=== PATIENT | female | born 1935 | race African-American/Black ===

== ENCOUNTER 2017-05-17 16:28 | Emergency (ER) | payer OTHER ==
[2017-05-17 16:35] VITALS: BMI 28.3
--- NOTE | 2017-05-17 20:02 | PDOC ---
History of Present Illness - General Chief Complaint: Lightheaded Stated Complaint: WEAKNESS Time Seen by Provider: 05/17/17 19:28 History Source: Patient Exam Limitations: No Limitations - History of Present Illness Initial Comments: 05/17/17 20:02 CC: 3 isolated episodes of Headache + Lightheadedness Patient is a 81 y.o. female with a PMH of HTN and HLD who presents to our facility today c/o 3 isolated epsiodes of feeling lightheaded with pressure behind her eyes and a throbbing pain over her forehead and crown of her head. Patient states the first episode was 2 weeks previous for which she took an Advil with some relief. Patient states the second two episodes occurred yesterday and today respectively. All three episodes happened in the morning soon after awakening and patient notes some nausea, however no vomiting, diaphoresis, chest pain, shortness of breath. Past History - Past Medical History Allergies/Adverse Reactions: Allergies Allergy/AdvReac Type Severity Reaction Status Date / Time Penicillins Allergy Mild Hives Verified 05/17/17 16:35 Home Medications: Ambulatory Orders Amlodipine Besylate 5 mg PO DAILY 05/17/17 Rosuvastatin Calcium 10 mg PO HS 05/17/17 Anemia: No Asthma: No Cancer: No Cardiac Disorders: No CVA: No COPD: No CHF: No Dementia: No Diabetes: No GI Disorders: Yes (TUBULAR ADENOMA) Disorders: No HTN: Yes Hypercholesterolemia: No Liver Disease: No Seizures: No Thyroid Disease: No - Surgical History Abdominal Surgery: Yes Appendectomy: No Cardiac Surgery: No Cholecystectomy: No Lung Surgery: No Neurologic Surgery: No Orthopedic Surgery: Yes (RIGHT KNEE REPLACEMENT) - Family Disease History Family Disease History: Heart Disease: Mother - Immunization History Immunization Up to Date: Yes (flu 2 wks ago) - Psycho/Social/Smoking Cessation Hx Anxiety: No Suicidal Ideation: No Smoking Status: No Smoking History: Never smoked Number of Cigarettes Smoked Daily: 0 Information on smoking cessation initiated: No Hx Alcohol Use: No Drug/Substance Use Hx: No Substance Use Type: None Hx Substance Use Treatment: No Review of Systems - Review of Systems Constitutional: No: Chills, Fever, Malaise, Unexplained wgt Loss HEENTM: No: Blurred Vision, Double Vision Respiratory: No: Cough Cardiac (ROS): Yes: Lightheadedness. No: Chest Pain, Palpitations, Syncope ABD/GI: No: Constipated, Diarrhea : No: Burning, Dysuria All Other Systems: Reviewed and Negative *Physical Exam - Vital Signs Last Vital Signs Temp Pulse Resp BP Pulse Ox 98.5 F 77 19 156/73 99 05/17/17 16:34 05/17/17 16:34 05/17/17 16:34 05/17/17 16:34 05/17/17 16:34 - Physical Exam General Appearance: Yes: Nourished, Appropriately Dressed HEENT: positive: EOMI, GIBRAN Neck: positive: Trachea midline, Supple Respiratory/Chest: positive: Lungs Clear, Normal Breath Sounds Cardiovascular: positive: Regular Rate, S1, S2 Musculoskeletal: positive: Normal Inspection Extremity: positive: Normal Capillary Refill, Normal Inspection Neurologic: 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 female with a PMH of HTN and HLD who presents with 3 episodes of headache and lightheadedness. Initial DDx is Brain tumor vs. Electrolyte imbalance vs. Cardiac Arrhythmia PLAN 1. EKG 2. CT Head 3. CMP, CBC 05/17/17 20:32 EKG shows NSR (HR 66 bpm) with deep QRS in V1 and high QRS in aVL suggesting LV Hypertrophy --> possible cardiac etiology 05/17/17 21:50 CT head pending at time of signout to Dr. Deepa Ray (attending) *DC/Admit/Observation/Transfer Diagnosis at time of Disposition: Lightheadedness
[2017-05-17 21:33] LABS: MCH 28.1 pg (25.7-33.7); MEAN CELL VOLUME 85.1 fl (80-96); MEAN PLT VOLUME 7.9 fl (7.5-11.1); PLATELET COUNT 250 K/MM3 (134-434); RDW 14.2 % (11.6-15.6); WHITE BLOOD COUNT 10.4 K/mm3 (4.0-10.0)
[2017-05-17 22:51] VITALS: BP 146/66; PULSE 75; TEMP 97.7
[2017-05-17 22:54] LABS: ALK PHOS 96 U/L (45-117); ANION GAP 8 (8-16); BILIRUBIN,TOTAL 0.5 mg/dL (0.2-1.0); CALCIUM 9.8 mg/dL (8.5-10.1); CO2 27 mmol/L (21-32); CREATININE 0.9 mg/dL (0.55-1.02); GLUCOSE,RANDOM 102 mg/dL (74-106); SGOT/AST 14 U/L (15-37); SGPT/ALT 22 U/L (12-78); TOT PROT 7.2 g/dl (6.4-8.2)
--- NOTE | 2017-05-17 23:44 | PDOC ---
Attending Attestation - Resident Resident Name: ParulIsabelle - ED Attending Attestation I have performed the following: I have examined & evaluated the patient, The case was reviewed & discussed with the resident, I agree w/resident's findings & plan, Exceptions are as noted - HPI HPI: 05/17/17 23:44 81-year-old female who's had vertigo intermittently over the past 2-1/2 weeks - Physicial Exam PE: 05/17/17 23:44 Well-nourished well-developed 81-year-old female in no acute distress HEENT head normocephalic/atraumatic, pupils equal, reactive to light and accommodation Neck no significant bruits Lungs are clear to auscultation CVS regular rate and rhythm. No gallops or rubs Abdomen is soft Extremities full range of motion, no deformities Neuro patient is alert and oriented 3, ambulatory, motor strength 5 out of 5 bilaterally, no ataxia at this time - Medical Decision Making 05/17/17 23:46 CAT scan of the head is negative for any acute intracranial pathology, limits her reviewed and unremarkable. Patient referred to ear, nose and throat for further evaluation
--- NOTE | 2017-05-17 23:48 | PDOC ---
*Physical Exam - Vital Signs Last Vital Signs Temp Pulse Resp BP Pulse Ox 97.7 F 75 18 146/66 99 05/17/17 22:50 05/17/17 22:50 05/17/17 22:50 05/17/17 22:50 05/17/17 22:50 ED Treatment Course - LABORATORY CBC & Chemistry Diagram: 05/17/17 21:26 05/17/17 21:26 - ADDITIONAL ORDERS Additional order review: Laboratory Results 05/17/17 05/17/17 21:26 21:03 Sodium 139 Cancelled Potassium 4.3 Cancelled Chloride 104 Cancelled Carbon Dioxide 27 Cancelled Anion Gap 8 Cancelled BUN 19 H Cancelled Creatinine 0.9 D Cancelled Creat Clearance w eGFR > 60 Cancelled Random Glucose 102 Cancelled Calcium 9.8 Cancelled Total Bilirubin 0.5 D Cancelled AST 14 L D Cancelled ALT 22 D Cancelled Alkaline Phosphatase 96 Cancelled Total Protein 7.2 Cancelled Albumin 4.0 Cancelled 05/17/17 05/17/17 21:26 21:03 RBC 4.38 Cancelled MCV 85.1 Cancelled MCHC 33.0 Cancelled RDW 14.2 Cancelled MPV 7.9 Cancelled Neutrophils % Cancelled Lymphocytes % Cancelled Monocytes % Cancelled Eosinophils % Cancelled Basophils % Cancelled *DC/Admit/Observation/Transfer Diagnosis at time of Disposition: Lightheadedness, Vertigo - Discharge Dispostion Disposition: HOME Condition at time of disposition: Stable - Referrals Referrals: Milo Key [Primary Care Provider] - Nba Carney MD [Staff Physician] - - Patient Instructions Printed Discharge Instructions: DI for Vertigo Additional Instructions: please follow up with your physician supervisor printing and stamping your medication at [facility] - Post Discharge Activity
--- NOTE | 2017-05-18 14:55 | EKG ---
Test Reason : Blood Pressure : / mmHG Vent. Rate : 066 BPM Atrial Rate : 066 BPM P-R Int : 156 ms QRS Dur : 116 ms QT Int : 438 ms P-R-T Axes : 062 -14 021 degrees QTc Int : 459 ms NORMAL SINUS RHYTHM POSSIBLE LEFT ATRIAL ENLARGEMENT LEFT VENTRICULAR HYPERTROPHY WITH QRS WIDENING INFERIOR INFARCT , AGE UNDETERMINED ABNORMAL ECG WHEN COMPARED WITH ECG OF 01-JUN-2016 08:49, QRS DURATION HAS INCREASED Confirmed by MARIAM PEDERSON, WHITNEY ([id number]) on 05/18/2017 2:54:54 PM Referred By: Confirmed By:WHITNEY BECERRA MD
== END 2017-05-17 23:54 | disposition home or self-care (01) ==
LOC: JER 16:28
DX: R42 Dizziness and giddiness (principal); I10 Essential (primary) hypertension
CPT/HCPCS: 36415; 70450-TC; 80053; 85027; 93005; 93010; 99283-25

== ENCOUNTER 2017-11-06 15:49 | Emergency (ER) | payer OTHER ==
[2017-11-06 16:09] VITALS: TEMP 98.7; BMI 26.6
--- NOTE | 2017-11-06 16:20 | PDOC ---
Attending Attestation - Medical Decision Making 11/07/17 02:09 CTA HEAD AND NECK Impressions reported by Dr.Ken Mas at 00:18: No vascular abnormalities in the brain. Suprasellar mass demonstrates no mass effect on either internal carotid artery. Enhanced MRI is suggested for further evaluation of the mass. Bilateral internal carotid artery calcified plaque without a hemodynamically significant stenosis. <Kelvin Medina - Last Filed: 11/07/17 02:09> - Resident Resident Name: Diane Butt - ED Attending Attestation I have performed the following: I have examined & evaluated the patient, The case was reviewed & discussed with the resident, I agree w/resident's findings & plan, Exceptions are as noted - HPI HPI: 11/06/17 17:39 82 yo female had a mechanical fall at home and yelled to her who helped her back into the chair. 11/06/17 17:41 - Physicial Exam PE: 11/07/17 22:02 wnwd alert 82 yo female in no acute distress head no scalp laceration neck no cervcial vertebral tenderness lungs cta b/l cvs [id number] abd soft,nontender ext no edema musculoskeletal rt shoulder pain upon raising over head but no limited range of mvmt or deformity neuro axox3, ambulatory - Medical Decision Making 11/07/17 22:58 CAT scan of the head without contrast did not show any acute bleed or skull fracture. 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 I did call the patient's doctor Dr. Olegario Jensen today and the patient did see her primary care physician for follow-up today. <Deepa Ray - Last Filed: 11/07/17 23:00>
--- NOTE | 2017-11-06 17:09 | PDOC ---
History of Present Illness - General Chief Complaint: Injury Stated Complaint: FALL Time Seen by Provider: 11/06/17 16:15 History Source: Patient Exam Limitations: No Limitations - History of Present Illness Initial Comments: 11/06/17 17:05 82 y/o F with PMH HTN, HLD, on aspirin 81mg qd, who presents to the ED s/p mechanical fall this afternoon. As per pt, she was getting up from her dining room table when she tripped on the chair, falling to the ground. During the fall , pt suffered head trauma, as well as injury to her R shoulder. Pt currently endorses occipital JARAMILLO. Pt denied LOC, seizure activity, palpitations or lightheadedness prior to the event. Fall was unwitnessed. After her fall, pt yelled out, and her subsequently helped her up and brought her to the ED. Otherwise, pt denies fever, chills, SOB, chest pain, or any changes in urinary or bowel function. PMH: HTN, HLD PsxH: b/l knee replacement- R 2007, L 1993. 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 denies cigarette, alcohol, or recreational drug use Past History - Past Medical History Allergies/Adverse Reactions: Allergies Allergy/AdvReac Type Severity Reaction Status Date / Time Penicillins Allergy Mild Hives Verified 11/06/17 16:09 Home Medications: Ambulatory Orders Unobtainable [Unobtainable] 11/06/17 Anemia: No Asthma: No Cancer: No Cardiac Disorders: No CVA: No COPD: No CHF: No Dementia: No Diabetes: No GI Disorders: Yes (TUBULAR ADENOMA) Disorders: No HTN: Yes Hypercholesterolemia: No Liver Disease: No Seizures: No Thyroid Disease: No - Surgical History Abdominal Surgery: Yes Appendectomy: No Cardiac Surgery: No Cholecystectomy: No Lung Surgery: No Neurologic Surgery: No Orthopedic Surgery: Yes (RIGHT KNEE REPLACEMENT) - Family Disease History Family Disease History: Heart Disease: Mother - Immunization History Immunization Up to Date: Yes (flu 2 wks ago) - Suicide/Smoking/Psychosocial Hx Smoking Status: No Smoking History: Never smoked Number of Cigarettes Smoked Daily: 0 Hx Alcohol Use: No Drug/Substance Use Hx: No Substance Use Type: None Hx Substance Use Treatment: No Review of Systems - Review of Systems Able to Perform ROS?: Yes Musculoskeletal: Yes: Joint Pain (R shoulder pain) Neurological: Yes: Headache *Physical Exam - Vital Signs Last Vital Signs Temp Pulse Resp BP Pulse Ox 98.7 F 86 18 180/81 99 11/06/17 16:06 11/06/17 16:06 11/06/17 16:06 11/06/17 16:06 11/06/17 16:06 - Physical Exam General Appearance: Yes: Nourished, Other (in no acute distress) HEENT: positive: EOMI, GIBRAN Neck: positive: Supple Respiratory/Chest: positive: Lungs Clear, Normal Breath Sounds Cardiovascular: positive: Regular Rhythm, Regular Rate, S1, S2 Vascular Pulses: Dorsalis-Pedis (R): 2+, Doralis-Pedis (L): 2+ Gastrointestinal/Abdominal: positive: Normal Bowel Sounds, Soft Musculoskeletal: positive: Decreased Range of Motion (+R shoulder ) Integumentary: positive: Normal Color, Warm Neurologic: 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 Will get CT head non con to r/o bleed, cervical spine CT w/o con, R shoulder x-ray r/o fx, EKG to r/o any arrythmia and reevaluate. afebrile, BP most likely 2/2 pain. will continue to monitor 11/06/17 18:55 EKG vent rate 78, NJ 146ms, Qtc 474ms. With RBBB, past inferior infarct 11/06/17 21:24 Pt with mass on CT head - will need CT head with contrast. Will first check BUN/ Cr, needs IV line for contrast 11/06/17 23:30 BUN/Cr WNL pt for brain CTA, neck CTA
[2017-11-06] MEDS ORDERED: SODIUM CHLORIDE 1,000 ML IV SCH (21:15)
[2017-11-06 21:57] LABS: BASO % 1.2 % (0-2.0); EOS % 3.1 % (0-4.5); HEMATOCRIT 39.1 % (32.4-45.2); HEMOGLOBIN 12.7 GM/dL (10.7-15.3); LYMPH % 19.2 % (8-40); MCH 27.3 pg (25.7-33.7); MCHC 32.5 g/dl (32.0-36.0); MEAN CELL VOLUME 84.1 fl (80-96); MEAN PLT VOLUME 8.1 fl (7.5-11.1); MONO % 8.1 % (3.8-10.2); NEUT % 68.4 % (42.8-82.8); PLATELET COUNT 241 K/MM3 (134-434); RBC 4.65 M/mm3 (3.60-5.2); RDW 14.6 % (11.6-15.6); WHITE BLOOD COUNT 12.5 K/mm3 (4.0-10.0)
[2017-11-06 22:23] LABS: ALBUMIN 4.1 g/dl (3.4-5.0); ALK PHOS 104 U/L (45-117); ANION GAP 11 (8-16); BILIRUBIN,TOTAL 0.6 mg/dL (0.2-1.0); BLOOD UREA NITROGEN 17 mg/dL (7-18); CALCIUM 9.6 mg/dL (8.5-10.1); CHLORIDE 103 mmol/L (98-107); CO2 26 mmol/L (21-32); CREATININE 0.8 mg/dL (0.55-1.02); GLUCOSE,RANDOM 107 mg/dL (74-106); POTASSIUM 4.7 mmol/L (3.5-5.1); SGOT/AST 24 U/L (15-37); SGPT/ALT 30 U/L (12-78); SODIUM 140 mmol/L (136-145)
--- NOTE | 2017-11-07 02:30 | PDOC ---
*Physical Exam - Vital Signs Last Vital Signs Temp Pulse Resp BP Pulse Ox 98.7 F 86 18 180/81 99 11/06/17 16:06 11/06/17 16:06 11/06/17 16:06 11/06/17 16:06 11/06/17 16:06 ED Treatment Course - LABORATORY CBC & Chemistry Diagram: 11/06/17 21:15 11/06/17 21:15 - ADDITIONAL ORDERS Additional order review: Laboratory Results 11/06/17 21:15 Sodium 140 Potassium 4.7 Chloride 103 Carbon Dioxide 26 Anion Gap 11 BUN 17 Creatinine 0.8 Creat Clearance w eGFR > 60 Random Glucose 107 H Calcium 9.6 Total Bilirubin 0.6 AST 24 ALT 30 Alkaline Phosphatase 104 Total Protein 8.0 Albumin 4.1 11/06/17 21:15 RBC 4.65 MCV 84.1 MCHC 32.5 RDW 14.6 MPV 8.1 Neutrophils % 68.4 Lymphocytes % 19.2 D Monocytes % 8.1 Eosinophils % 3.1 D Basophils % 1.2 - RADIOLOGY Radiology Studies Ordered: Category Date Time Status BRAIN CTA [CT] Stat CT Scan 11/06/17 23:[address] W/O CONTR [CT] Stat CT Scan 11/06/17 17:39 Taken NECK CTA [CT] Stat CT Scan 11/06/17 22:45 Taken *DC/Admit/Observation/Transfer Diagnosis at time of Disposition: Suprasellar mass Closed head injury Qualifiers: Encounter type: initial encounter Qualified Code(s): S09.90XA - Unspecified injury of head, initial encounter Shoulder pain Qualifiers: Chronicity: acute Laterality: right Qualified Code(s): M25.511 - Pain in right shoulder - Discharge Dispostion Disposition: HOME Condition at time of disposition: Stable - Referrals - Patient Instructions Printed Discharge Instructions: DI for Shoulder Pain, DI for Closed Head Injury Additional Instructions: Your CT SCAN of the head revealed a suprasellar mass and this needs to be followed and you need to get an MRI Please see Dr Jensen this week - Post Discharge Activity
[2017-11-07 02:53] VITALS: BP 145/76; PULSE 71
--- NOTE | 2017-11-07 17:05 | EKG ---
Test Reason : Blood Pressure : / mmHG Vent. Rate : 078 BPM Atrial Rate : 078 BPM P-R Int : 146 ms QRS Dur : 116 ms QT Int : 416 ms P-R-T Axes : 046 -06 024 degrees QTc Int : 474 ms NORMAL SINUS RHYTHM LEFT VENTRICULAR HYPERTROPHY WITH QRS WIDENING INFERIOR INFARCT (CITED ON OR BEFORE 17-MAY-2017) ABNORMAL ECG WHEN COMPARED WITH ECG OF 17-MAY-2017 20:21, NO SIGNIFICANT CHANGE WAS FOUND Confirmed by KATHERNY DE LA GARZA MD ([id number]) on 11/07/2017 5:04:59 PM Referred By: Confirmed By:KATHERYN DE LA GARZA MD
== END 2017-11-07 02:49 | disposition home or self-care (01) ==
LOC: JER 15:49
PROC: 3E0337Z Introduction of Electrolytic and Water Balance Substance into Peripheral Vein, Percutaneous Approach (ICD-10-PCS; principal; 2017-11-06)
DX: S09.8XXA Other specified injuries of head, initial encounter (principal); M25.511 Pain in right shoulder; I10 Essential (primary) hypertension; W07.XXXA Fall from chair, initial encounter; Y93.89 Activity, other specified; Y92.038 Other place in apartment as the place of occurrence of the external cause; Y99.8 Other external cause status
CPT/HCPCS: 36415; 70450-TC; 70496-TC; 70498-TC; 72125-TC; 73030-TC-RT-FY; 80053; 85025; 93005; 93010; 96360; 96361; 99283-25

== ENCOUNTER 2018-07-01 20:06 | Emergency (ER) | payer OTHER ==
[2018-07-01 20:17] VITALS: BP 152/68; PULSE 93; TEMP 99.4; BMI 26.6
--- NOTE | 2018-07-01 20:36 | PDOC ---
History of Present Illness - General Chief Complaint: Cold Symptoms Stated Complaint: COLD SYMPTOMS Time Seen by Provider: 07/01/18 20:22 History Source: Patient - History of Present Illness Timing/Duration: reports: yesterday Associated Symptoms: reports: cough Past History - Past Medical History Allergies/Adverse Reactions: Allergies Allergy/AdvReac Type Severity Reaction Status Date / Time Penicillins Allergy Mild Hives Verified 07/01/18 20:14 Home Medications: Ambulatory Orders Unobtainable 11/06/17 Anemia: No Asthma: No Cancer: No Cardiac Disorders: No CVA: No COPD: No CHF: No Dementia: No Diabetes: No GI Disorders: Yes (TUBULAR ADENOMA) Disorders: No HTN: Yes Hypercholesterolemia: No Liver Disease: No Seizures: No Thyroid Disease: No - Surgical History Abdominal Surgery: Yes Appendectomy: No Cardiac Surgery: No Cholecystectomy: No Lung Surgery: No Neurologic Surgery: No Orthopedic Surgery: Yes (RIGHT KNEE REPLACEMENT) - Family Disease History Family Disease History: Heart Disease: Mother - Immunization History Immunization Up to Date: Yes (flu 2 wks ago) - Suicide/Smoking/Psychosocial Hx Smoking Status: No Smoking History: Never smoked Number of Cigarettes Smoked Daily: 0 Hx Alcohol Use: No Drug/Substance Use Hx: No Substance Use Type: None Hx Substance Use Treatment: No Respiratory Specific PMHX - Complaint Specific PMHX Angina: No Review of Systems - Review of Systems Constitutional: No: Chills, Fever, Malaise Respiratory: No: Cough, Shortness of Breath, Wheezing Cardiac (ROS): No: Chest Pain *Physical Exam - Vital Signs Last Vital Signs Temp Pulse Resp BP Pulse Ox 99.4 F 93 H 18 152/68 99 07/01/18 20:15 07/01/18 20:15 07/01/18 20:15 07/01/18 20:15 07/01/18 20:15 - Physical Exam General Appearance: Yes: Appropriately Dressed. No: Apparent Distress HEENT: positive: Normal Voice Neck: positive: Supple. negative: Lymphadenopathy (R), Lymphadenopathy (L) Respiratory/Chest: positive: Lungs Clear, Normal Breath Sounds. negative: Respiratory Distress Cardiovascular: positive: Regular Rate, S1, S2 Extremity: negative: Pedal Edema Integumentary: positive: Dry, Warm Neurologic: positive: Fully Oriented, Alert, Normal Mood/Affect Medical Decision Making - Medical Decision Making 07/01/18 20:34 83-year-old female, history of hypertension, nonsmoker, here with nonproductive cough since last night. No shortness of breath, wheezing, fever or chills. No h /o PNA. Multiple hindu members w/ similar sxs per pt See exam M/l viral URI Well xin and stable w/ clear chest/lungs -dc w/ supportive tx and pmd f/u as needed *DC/Admit/Observation/Transfer Diagnosis at time of Disposition: URI (upper respiratory infection) Qualifiers: URI type: unspecified viral URI Qualified Code(s): J06.9 - Acute upper respiratory infection, unspecified - Discharge Dispostion Disposition: HOME Condition at time of disposition: Good - Referrals - Patient Instructions Printed Discharge Instructions: DI for Viral Upper Respiratory Infection -- Adult - Post Discharge Activity
== END 2018-07-01 20:49 | disposition home or self-care (01) ==
LOC: JERFT 20:06
DX: J06.9 Acute upper respiratory infection, unspecified (principal); B97.89 Other viral agents as the cause of diseases classified elsewhere; I10 Essential (primary) hypertension; Z96.651 Presence of right artificial knee joint
CPT/HCPCS: 99281-25

== ENCOUNTER 2018-10-08 14:20 | Observation (INO) | payer OTHER ==
--- NOTE | 2018-10-08 15:24 | PDOC ---
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 The patient went outside and drank some vilma farhat and ate some cookies. She went inside as she felt she needed to urinate, but she did not produce urine. She continued to have lightheadedness, nausea and headache and was encouraged to come the ED. The patient denies diaphoresis, chest pain, shortness of breath, changes in vision, ringing in the ears, or shaking. She reports resolution of headache and nausea but continues to complain of lightheadedness. 10/08/18 17:32 Past History - Past Medical History Allergies/Adverse Reactions: Allergies Allergy/AdvReac Type Severity Reaction Status Date / Time Penicillins Allergy Mild Hives Verified 10/08/18 19:50 Home Medications: Ambulatory Orders Sulfamethoxazole/Trimethoprim [Bactrim Ds -] 1 tab PO BID #7 tablet 10/08/18 Anemia: No Asthma: No Cancer: No Cardiac Disorders: No CVA: No COPD: No CHF: No Dementia: No Diabetes: No GI Disorders: Yes (TUBULAR ADENOMA) Disorders: No HTN: Yes Hypercholesterolemia: No Liver Disease: No Seizures: No Thyroid Disease: No - Surgical History Abdominal Surgery: Yes Appendectomy: No Cardiac Surgery: No Cholecystectomy: No Lung Surgery: No Neurologic Surgery: No Orthopedic Surgery: Yes (RIGHT KNEE REPLACEMENT) - Family Disease History Family Disease History: Heart Disease: Mother - Immunization History Immunization Up to Date: Yes (flu 2 wks ago) - Suicide/Smoking/Psychosocial Hx Smoking Status: No Smoking History: Never smoked Have you smoked in the past 12 months: No Number of Cigarettes Smoked Daily: 0 Information on smoking cessation initiated: No Hx Alcohol Use: No Drug/Substance Use Hx: No Substance Use Type: None Hx Substance Use Treatment: No *Physical Exam - Vital Signs Last Vital Signs Temp Pulse Resp BP Pulse Ox 97.6 F 80 16 156/78 97 10/08/18 14:29 10/08/18 14:29 10/08/18 14:29 10/08/18 14:29 10/08/18 14:29 - Physical Exam Comments: 10/08/18 19:37 normal exam Moderate Sedation - Procedure Monitoring Vital Signs: Procedure Monitoring Vital Signs Temperature 97.6 F 10/08/18 14:29 Pulse Rate 80 10/08/18 14:29 Respiratory Rate 16 10/08/18 14:29 Blood Pressure 156/78 10/08/18 14:29 O2 Sat by Pulse Oximetry (%) 97 10/08/18 14:29 ED Treatment Course - LABORATORY CBC & Chemistry Diagram: 10/08/18 17:09 10/08/18 16:44 Medical Decision Making - Medical Decision Making 10/08/18 17:32 ED Course: consider acs vs arrythmia vs eletrolyte vs pna, vs uti vs stroke vs mass patient with history of brain mass lesion concerning for meningioma will evalaute for other etiologites for today's episode cbc, cmp, cxr, ekg, ua, ucx cta head ivf plan for neuro consult 10/08/18 19:35 CT head unremarkable CXR: midline airway, appropriate vascular markings, no blunting of costophrenic angle, no cardiomegaly, as read by this senior writer and attending. Patient reassessed multiple times. Feels improved PO trial successfully 10/08/18 20:18 Neurology contacted recommends admission for observation as history concerning and without explanation for acute onset headache will send esr and crp to r/o giant cell arteritis plan for observation admission. *DC/Admit/Observation/Transfer Diagnosis at time of Disposition: Ataxia, Suprasellar mass, Headache - Discharge Dispostion Condition at time of disposition: Stable Decision to Admit order: Yes - Prescriptions Prescriptions: Sulfamethoxazole/Trimethoprim [Bactrim Ds -] 1 tab PO BID #7 tablet - Referrals Referrals: Olegario Jensen MD [Primary Care Provider] - - Patient Instructions - Post Discharge Activity
[2018-10-08] MEDS ORDERED: MECLIZINE HCL 25 MG TABLET (FP) PO ONE (15:42)
[2018-10-08] MEDS ORDERED: MECLIZINE HCL 25 MG TABLET (FP) ONE (16:26)
--- NOTE | 2018-10-08 16:31 | PDOC ---
Attending Attestation - Resident Resident Name: Vanessa Michaud - ED Attending Attestation I have performed the following: I have examined & evaluated the patient, The case was reviewed & discussed with the resident, I agree w/resident's findings & plan, Exceptions are as noted - HPI HPI: 10/08/18 16:31 The patient is an 83 year old female with a significant past medical of HTN and HLD, who presents to the ED complaining of an episode of nausea, lightheadedness , and a 10/10 headache that started early this morning while sitting in [employer]. The patient notes her headache and lightheadedness have resolved but her nausea is still pertinent. The patient stated she stepped outside and tried eating and drinking when the symptoms arose, however, those symptoms were not alleviated. The patient also states when she returned to [employer] she had an urge to urinate but nothing would come out. The patient denies chest pain, shortness of breath, and dizziness. Denies fever, chills, vomit, diarrhea and constipation. Denies dysuria, frequency, and hematuria. Allergies: Penicillin
[2018-10-08 17:15] LABS: BASO % 0.6 % (0-2.0); EOS % 1.8 % (0-4.5); HEMATOCRIT 36.9 % (32.4-45.2); HEMOGLOBIN 12.6 GM/dL (10.7-15.3); LYMPH % 15.4 % (8-40); MCH 29.1 pg (25.7-33.7); MCHC 34.2 g/dl (32.0-36.0); MEAN CELL VOLUME 85.2 fl (80-96); MONO % 8.4 % (3.8-10.2); NEUT % 73.8 % (42.8-82.8); PLATELET COUNT 232 K/MM3 (134-434); RBC 4.34 M/mm3 (3.60-5.2); RDW 14.5 % (11.6-15.6); WHITE BLOOD COUNT 10.7 K/mm3 (4.0-10.0)
[2018-10-08 17:17] LABS: URINE APPEARANCE CLEAR; URINE BILIRUBIN NEGATIVE (<2.0 mg/dL); URINE COLOR LTYELLOW; URINE GLUCOSE (UA) NEGATIVE (NEGATIVE); URINE KETONE NEGATIVE (NEGATIVE); URINE LEUK ESTERASE 1+ (NEGATIVE); URINE NITRITE NEGATIVE (NEGATIVE); URINE PROTEIN NEGATIVE (NEGATIVE); URINE UROBILINOGEN NEGATIVE mg/dL (0.2-1.0)
[2018-10-08 17:17] LABS: ALK PHOS 100 U/L (45-117); ANION GAP 8 MMOL/L (8-16); BILIRUBIN,TOTAL 0.5 mg/dL (0.2-1); BLOOD UREA NITROGEN 21 mg/dL (7-18); CALCIUM 8.8 mg/dL (8.5-10.1); CHLORIDE 109 mmol/L (98-107); CO2 25 mmol/L (21-32); CREATININE 0.8 mg/dL (0.55-1.3); GLUCOSE,RANDOM 112 mg/dL (74-106); POTASSIUM 4.4 mmol/L (3.5-5.1); SGOT/AST 17 U/L (15-37); SGPT/ALT 20 U/L (13-61); SODIUM 141 mmol/L (136-145); TOT PROT 7.3 g/dl (6.4-8.2)
[2018-10-08 17:27] LABS: EPI CELLS RARE /HPF (FEW)
[2018-10-08] MEDS: SODIUM CHLORIDE 1,000 ML IV SCH (18:56)
[2018-10-08] MEDS ORDERED: SULFAMETHOXAZOLE/TRIMETHOPRIM 800MG/160MG D.S. TABLET PO ONE (20:07)
[2018-10-08] MEDS ORDERED: SULFAMETHOXAZOLE/TRIMETHOPRIM 800MG/160MG D.S. TABLET ONE (20:40)
[2018-10-08] MEDS ORDERED: SODIUM CHLORIDE 1,000 ML IV SCH (22:00)
--- NOTE | 2018-10-08 22:20 | HP ---
CHIEF COMPLAINT: presyncope PCP: HISTORY OF PRESENT ILLNESS: 83 y/o F with PMH HTN, HLD, anterior sellar mass poss meningioma (dx 11/2017), who presents to the ED c/o sudden episode nausea, lightheadedness that occurred this afternoon. As per pt, she went to spiritism at noon and felt well. However after, she developed a sudden episode of nausea (without emesis), lightheadedness a/w frontal JARAMILLO. She told the nurse at her spiritism, who recommended she drink gingerale and eat a cookie, however this did not alleviate her sx. She subsequently developed blurred vision and ataxic gait, requiring to lean on her for support. For this reason, she came to the ED for further evaluation. At baseline she walks on her own without a walker or cane. Daughter sick with the cold currently, and endorses recent urinary frequency as well as decreased fluid and PO intake d/t decreased appetite. Denies fall, syncope, LOC, current fever, chills, SOB, chest pain or pressure, or changes in bowel function. Concerning her meningioma, states that she has seen three different neurologists , one of which is from [facility]. Does not remember their names. 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 mother - cardiac dz Allergies Penicillins Allergy (Mild, Verified 10/08/18 19:50) Hives HOME MEDICATIONS: Home Medications Medication Instructions Recorded Sulfamethoxazole/Trimethoprim 1 tab PO BID #7 tablet 10/08/18 [Bactrim Ds -] States that she needs to bring meds in from home. Takes asa 81, "med for cholesterol", ?norvasc 10mg, vitaminD need to verify with pharmacy - uses [facility] REVIEW OF SYSTEMS CONSTITUTIONAL: Absent: fever, chills, diaphoresis, generalized weakness, malaise, loss of appetite, weight change HEENT: Absent: rhinorrhea, nasal congestion, throat pain, throat swelling, difficulty swallowing, mouth swelling, ear pain, eye pain, visual changes CARDIOVASCULAR: Absent: chest pain, syncope, palpitations, irregular heart rate, lightheadedness , peripheral edema RESPIRATORY: Absent: cough, shortness of breath, dyspnea with exertion, orthopnea, wheezing, stridor, hemoptysis GASTROINTESTINAL: +nausea Absent: abdominal pain, abdominal distension, nausea, vomiting, diarrhea, constipation, melena, hematochezia GENITOURINARY: +frequency Absent: dysuria, frequency, urgency, hesitancy, hematuria, flank pain, genital pain MUSCULOSKELETAL: Absent: myalgia, arthralgia, joint swelling, back pain, neck pain SKIN: Absent: rash, itching, pallor HEMATOLOGIC/IMMUNOLOGIC: Absent: easy bleeding, easy bruising, lymphadenopathy, frequent infections ENDOCRINE: Absent: unexplained weight gain, unexplained weight loss, heat intolerance, cold intolerance NEUROLOGIC: +ataxia, headache Absent: headache, focal weakness or paresthesias, dizziness, unsteady gait, seizure, mental status changes, bladder or bowel incontinence PSYCHIATRIC: Absent: anxiety, depression, suicidal or homicidal ideation, hallucinations. PHYSICAL EXAMINATION Vital Signs - 24 hr 10/08/18 10/08/18 14:29 21:51 Temperature 97.6 F Pulse Rate 80 Pulse Rate [ 80 Apical] Respiratory 16 18 Rate Blood Pressure 156/78 Blood Pressure 148/75 [Right Arm] O2 Sat by Pulse 97 97 Oximetry (%) GENERAL: Very pleasant. Awake, alert, and fully oriented, in no acute distress. HEAD: Normal with no signs of trauma. EYES: Pupils equal, round and reactive to light, extraocular movements intact, sclera anicteric, conjunctiva clear. EARS, NOSE, THROAT: Ears normal, nares patent, oropharynx clear without exudates. Dry mucous membranes NECK: Normal range of motion, supple LUNGS: Breath sounds equal, clear to auscultation bilaterally. No wheezes, and no crackles. No accessory muscle use. HEART: Regular rate and rhythm, normal S1 and S2 without murmur, rub or gallop. ABDOMEN: Soft, obese, nontender, not distended, normoactive bowel sounds, no guarding LOWER EXTREMITIES: 2+ pt pulses, warm, well-perfused. No calf tenderness. No peripheral edema. NEUROLOGICAL: Cranial nerves II-XII intact. Sensation intact. 5/5 motor strength UE, LE. no dysmetria, no dysdiadokinesia on my exam. PSYCHIATRIC: Cooperative. Good eye contact. SKIN: Warm, dry, normal turgor Laboratory Results - last 24 hr 10/08/18 10/08/18 10/08/18 16:44 17:06 17:09 WBC 10.7 H RBC 4.34 Hgb 12.6 Hct 36.9 MCV 85.2 MCH 29.1 MCHC 34.2 RDW 14.5 Plt Count 232 MPV 8.0 Absolute Neuts (auto) 7.9 Neutrophils % 73.8 Lymphocytes % 15.4 Monocytes % 8.4 Eosinophils % 1.8 Basophils % 0.6 Nucleated RBC % 0 Sodium 141 Potassium 4.4 Chloride 109 H Carbon Dioxide 25 Anion Gap 8 BUN 21 H Creatinine 0.8 Creat Clearance w eGFR > 60 Random Glucose 112 H Calcium 8.8 Total Bilirubin 0.5 AST 17 ALT 20 Alkaline Phosphatase 100 Troponin I Total Protein 7.3 Albumin 4.0 Urine Color Ltyellow Urine Appearance Clear Urine pH 7.0 D Ur Specific [place] 1.013 Urine Protein Negative Urine Glucose (UA) Negative Urine Ketones Negative Urine Blood Negative Urine Nitrite Negative Urine Bilirubin Negative Urine Urobilinogen Negative Ur Leukocyte Esterase 1+ H Urine WBC (Auto) 11 Urine RBC (Auto) 1 Ur Epithelial Cells Rare -Head CTA: scattered atherosclerotic mural calcifications within the intracranial internal carotid artery cavernous, and siphon segments. normal CTA of cerebral arteries and CTV of dural sinuses. - imaging direct support professional home health, official report pending -Head CT: without acute changes, ovoid filling defect maxillary sinus - likely 2 /2 meningioma. await official report -EKG: RBBB, LVH. rate 68bpm, QTc 474ms ASSESSMENT/PLAN: 83 y/o F with PMH HTN, HLD, anterior sellar mass poss meningioma (dx 11/2017), who presents to the ED c/o sudden episode nausea, lightheadedness that occurred this afternoon. #Likely presyncopal event -with decreased PO and fluid intake recently, blurred vision, nausea. also prerenal -will give IVF - NS 100 cc/hr -trend trops, first (-). f/u ECHO to evaluate for wall motion or valve fnc -may be 2/2 infection however without significant white ct, no source infection. CXR without evidence infiltrate. will not tx for UTI at this pt as pt asymptomatic -follow orthostatics -physical therapy #meningioma -f/u neuro recs: Dr. Jordan - contacted by ED, will see in AM -less likely precipitated above event as acute #HTN -need to confirm meds with pharmacy #HLD -need to confirm meds with pharmacy #F/E/N IV NS 100 cc/hr continue to follow lytes na controlled diet #PPX SCD's, expect short stay #Dispo tele obs Visit type - Emergency Visit Emergency Visit: Yes ED Registration Date: 10/08/18 Care time: The patient presented to the Emergency Department on the above date and was hospitalized for further evaluation of their emergent condition. - New Patient This patient is new to me today: Yes Date on this admission: 10/09/18 - Critical Care Critical Care patient: No
--- NOTE | 2018-10-08 22:31 | PN ---
Teaching Attending Note Name of Resident: Diane Butt ATTENDING PHYSICIAN STATEMENT I saw and evaluated the patient. I reviewed the resident's note and discussed the case with the resident. I agree with the resident's findings and plan as documented. SUBJECTIVE: OBJECTIVE: ASSESSMENT AND PLAN: this is an 83 y/o female PMH HTN, HLD, anterior sellar mass poss meningioma (dx 11/2017), who presents to the ED c/o sudden episode nausea, lightheadedness that occurred this afternoon. presented after the patient was in cheondoism she was complaining of lightheadedness since she didn't have breakfast - patient stated she feels better today Likely presyncopal event -with decreased PO and fluid intake recently, blurred vision, nausea. also prerenal -will give IVF - NS 100 cc/hr -trend trops, first (-). f/u ECHO to evaluate for wall motion or valve fnc -may be 2/2 infection however without significant white ct, no source infection. CXR without evidence infiltrate. will not tx for UTI at this pt as pt asymptomatic -follow orthostatics -physical therapy meningioma -f/u neuro recs: Dr. Jordan - contacted by ED, will see in AM -less likely precipitated above event as acute HTN -need to confirm meds with pharmacy HLD -need to confirm meds with pharmacy
[2018-10-09 04:49] VITALS: BMI 31.6
--- NOTE | 2018-10-09 08:04 | PN ---
Teaching Attending Note Name of Resident: Daniel Brewster ATTENDING PHYSICIAN STATEMENT I saw and evaluated the patient. I reviewed the resident's note and discussed the case with the resident. I agree with the resident's findings and plan as documented. SUBJECTIVE: Asymptomatic since hospitaization OBJECTIVE: Vital Signs Temperature 98.4 F 10/09/18 05:00 Pulse Rate 70 10/09/18 05:00 Respiratory Rate 18 10/09/18 05:00 Blood Pressure 134/63 10/09/18 05:00 O2 Sat by Pulse Oximetry (%) 97 10/08/18 22:00 Elderly F comfortable not in distress HEENT: Mm moist, no anemia, PERRLA EOMI NECK: No JVd No bruit CHEST: CTA B/L CVS; S1S2 R ABD; No distention, non marilin EXT: No edema feet GAUNTLET PAIRER: AOX3 non focal CBC, BMP 10/09/18 06:20 10/09/18 06:20 Active Medications Sodium Chloride (Normal Saline -) 1,000 mls @ 0 mls/hr IV ASDIR AIMEE Last Admin: 10/08/18 18:56 Dose: 1,000 mls/hr ASSESSMENT AND PLAN:83 y/o female PMH HTN, HLD, anterior sellar mass poss meningioma (dx 11/2017), who presents to the ED c/o sudden episode nausea, lightheadedness that occurred this afternoon. 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 Discussed with the team. Problem List - Problems (1) Pre-syncope Code(s): R55 - SYNCOPE AND COLLAPSE (2) Dehydration Code(s): E86.0 - DEHYDRATION (3) Suprasellar mass Code(s): R22.0 - LOCALIZED SWELLING, MASS AND LUMP, HEAD (4) HTN (hypertension) Code(s): I10 - ESSENTIAL (PRIMARY) HYPERTENSION
[2018-10-09 08:26] LABS: BASO % 0.7 % (0-2.0); EOS % 4.3 % (0-4.5); HEMATOCRIT 33.8 % (32.4-45.2); HEMOGLOBIN 11.8 GM/dL (10.7-15.3); LYMPH % 23.4 % (8-40); MCH 29.5 pg (25.7-33.7); MCHC 34.8 g/dl (32.0-36.0); MEAN CELL VOLUME 84.6 fl (80-96); MEAN PLT VOLUME 8.3 fl (7.5-11.1); MONO % 9.3 % (3.8-10.2); NEUT % 62.3 % (42.8-82.8); PLATELET COUNT 211 K/MM3 (134-434); RDW 14.6 % (11.6-15.6); WHITE BLOOD COUNT 8.1 K/mm3 (4.0-10.0)
[2018-10-09 08:46] LABS: ALBUMIN 3.4 g/dl (3.4-5.0); ALK PHOS 89 U/L (45-117); ANION GAP 7 MMOL/L (8-16); BILIRUBIN,TOTAL 0.5 mg/dL (0.2-1); BLOOD UREA NITROGEN 18 mg/dL (7-18); CALCIUM 8.4 mg/dL (8.5-10.1); CHLORIDE 111 mmol/L (98-107); CO2 25 mmol/L (21-32); CREATININE 0.9 mg/dL (0.55-1.3); GLUCOSE,RANDOM 95 mg/dL (74-106); MAGNESIUM 2.2 mg/dL (1.8-2.4); PHOSPHOROUS 3.4 mg/dL (2.5-4.9); POTASSIUM 4.1 mmol/L (3.5-5.1); SGOT/AST 16 U/L (15-37); SGPT/ALT 18 U/L (13-61); SODIUM 142 mmol/L (136-145); TOT PROT 6.5 g/dl (6.4-8.2)
--- NOTE | 2018-10-09 10:48 | EKG ---
Test Reason : Blood Pressure : / mmHG Vent. Rate : 068 BPM Atrial Rate : 068 BPM P-R Int : 152 ms QRS Dur : 124 ms QT Int : 446 ms P-R-T Axes : 064 -02 031 degrees QTc Int : 474 ms NORMAL SINUS RHYTHM RIGHT BUNDLE BRANCH BLOCK MINIMAL VOLTAGE CRITERIA FOR LVH, MAY BE NORMAL VARIANT INFERIOR INFARCT (CITED ON OR BEFORE 17-MAY-2017) ABNORMAL ECG WHEN COMPARED WITH ECG OF 06-NOV-2017 18:48, NO SIGNIFICANT CHANGE WAS FOUND Confirmed by KRISH MARTINEZ MD ([id number]) on 10/09/2018 10:48:25 AM Referred By: Confirmed By:KRISH MARTINEZ MD
--- NOTE | 2018-10-09 15:39 | ECHO ---
Name: CHIO ARIAS Exam:Adult Echocardiogram Study Date: 10/09/2018 12:54 PM Age: 83 yrs Reason For Study: PRE SYNCOPAL Height: 65 in Weight: 187 lb BSA: 1.9 m2 MMode/2D Measurements & Calculations IVSd: 0.91 cm Ao root diam: 3.3 cm LVIDd: 4.5 cm LA dimension: 3.8 cm LVIDs: 2.4 cm ACS: 2.0 cm LVPWd: 0.85 cm IVSs: 1.1 cm LVPWs: 1.2 cm EDV(Teich): 91.5 ml ESV(Teich): 19.7 ml Doppler Measurements & Calculations MV E max carlo: 62.9 cm/sec Ao V2 max: 122.2 cm/sec MV A max carlo: 74.5 cm/sec Ao max P.0 mmHg MV E/A: 0.84 Ao V2 mean: 79.8 cm/sec Ao mean P.0 mmHg Ao V2 VTI: 24.4 cm TR max carlo: 209.7 cm/sec Med Peak E' Carlo: 5.4 cm/sec TR max P.6 mmHg Med E/e': 11.7 Lat Peak E' Carlo: 6.7 cm/sec Lat E/e': 9.4 Procedure A complete two-dimensional transthoracic echocardiogram was performed (2D, M-mode, Doppler and color flow Doppler). Left Ventricle The left ventricle is normal in size. Left ventricular systolic function is normal. Ejection Fraction = 65- 70%. Grade I diastolic dysfunction, (abnormal relaxation pattern). Ratio E/E'= 12. No regional wall m otion abnormalities noted. Right Ventricle The right ventricle is normal size. The right ventricular systolic function is normal. Atria The left atrial size is normal. Right atrial size is normal. Mitral Valve There is mild mitral valve thickening. There is mild mitral regurgitation. Tricuspid Valve The tricuspid valve is normal in structure and function. There is trace tricuspid regurgitation. Righ t ventricular systolic pressure is normal. Aortic Valve The aortic valve is normal in structure and function. No aortic regurgitation is present. Pulmonic Valve The pulmonic valve is not well visualized. Great Vessels The aortic root is normal size. Pericardium/Pleura There is no pericardial effusion. Interpretation Summary The left ventricle is normal in size. Left ventricular systolic function is normal. No regional wall motion abnormalities noted. Ejection Fraction = 65-70%. Grade I diastolic dysfunction, (abnormal relaxation pattern). Ratio E/E'= 12 The right ventricular systolic function is normal. The left atrial size is normal. Right atrial size is normal. There is mild mitral valve thickening. There is mild mitral regurgitation. There is trace tricuspid regurgitation. Right ventricular systolic pressure is normal. There is no pericardial effusion. Previous study is not available for comparison Oskar Tatum MD 10/09/2018 03:39 PM
--- NOTE | 2018-10-09 15:45 | PN ---
Physical Exam: SUBJECTIVE: Patient seen and examined at bedside this morning. She currently denies lightheadedness, weakness, headaches, changes in vision, fevers, chills, shortness of breath, chest pain, palpitations, abdominal pain, nausea, vomiting. OBJECTIVE: Vital Signs Period Temp Pulse Resp BP Sys/Pablo Pulse Ox Last 24 Hr 97.8 F-98.5 F 69-81 18-30 126-158/55-75 97-100 GENERAL: The patient is awake, alert, and fully oriented, in no acute distress. HEAD: Normocephalic, atraumatic EYES: PERRL, extraocular movements intact, sclera anicteric, conjunctiva clear. ENT: Oropharynx clear without exudates, moist mucous membranes. NECK: Supple without lymphadenopathy LUNGS: Breath sounds equal, clear to auscultation bilaterally, no wheezes, no crackles. No accessory muscle use. HEART: Regular rate and rhythm, S1, S2 without murmur, rub or gallop. ABDOMEN: Soft, nontender, nondistended. Normoactive bowel sounds, no guarding, no rebound tenderness. EXTREMITIES: 2+ pulses, warm, well-perfused, no lower extremity edema. NEUROLOGICAL: Cranial nerves II through XII grossly intact. Normal speech. PSYCH: Normal mood, normal affect upon my encounter. SKIN: Warm, dry. Laboratory Results - last 24 hr 10/08/18 10/08/18 10/08/18 16:44 17:06 17:09 WBC 10.7 H RBC 4.34 Hgb 12.6 Hct 36.9 MCV 85.2 MCH 29.1 MCHC 34.2 RDW 14.5 Plt Count 232 MPV 8.0 Absolute Neuts (auto) 7.9 Neutrophils % 73.8 Lymphocytes % 15.4 Monocytes % 8.4 Eosinophils % 1.8 Basophils % 0.6 Nucleated RBC % 0 ESR Sodium 141 Potassium 4.4 Chloride 109 H Carbon Dioxide 25 Anion Gap 8 BUN 21 H Creatinine 0.8 Creat Clearance w eGFR > 60 Random Glucose 112 H Hemoglobin A1c % Calcium 8.8 Phosphorus Magnesium Total Bilirubin 0.5 AST 17 ALT 20 Alkaline Phosphatase 100 Troponin I C-Reactive Protein Total Protein 7.3 Albumin 4.0 Urine Color Ltyellow Urine Appearance Clear Urine pH 7.0 D Ur Specific [place] 1.013 Urine Protein Negative Urine Glucose (UA) Negative Urine Ketones Negative Urine Blood Negative Urine Nitrite Negative Urine Bilirubin Negative Urine Urobilinogen Negative Ur Leukocyte Esterase 1+ H Urine WBC (Auto) 11 Urine RBC (Auto) 1 Ur Epithelial Cells Rare 10/08/18 10/08/18 10/08/18 17:09 21:45 21:45 WBC RBC Hgb Hct MCV MCH MCHC RDW Plt Count MPV Absolute Neuts (auto) Neutrophils % Lymphocytes % Monocytes % Eosinophils % Basophils % Nucleated RBC % ESR 16 Sodium Potassium Chloride Carbon Dioxide Anion Gap BUN Creatinine Creat Clearance w eGFR Random Glucose Hemoglobin A1c % Calcium Phosphorus Magnesium Total Bilirubin AST ALT Alkaline Phosphatase Troponin I < 0.02 C-Reactive Protein 0.3 Total Protein Albumin Urine Color Urine Appearance Urine pH Ur Specific [place] Urine Protein Urine Glucose (UA) Urine Ketones Urine Blood Urine Nitrite Urine Bilirubin Urine Urobilinogen Ur Leukocyte Esterase Urine WBC (Auto) Urine RBC (Auto) Ur Epithelial Cells 10/09/18 10/09/18 10/09/18 06:20 06:20 06:20 WBC 8.1 RBC 4.00 Hgb 11.8 Hct 33.8 MCV 84.6 MCH 29.5 MCHC 34.8 RDW 14.6 Plt Count 211 MPV 8.3 Absolute Neuts (auto) 5.1 Neutrophils % 62.3 Lymphocytes % 23.4 D Monocytes % 9.3 Eosinophils % 4.3 D Basophils % 0.7 Nucleated RBC % 0 ESR Sodium 142 Potassium 4.1 Chloride 111 H Carbon Dioxide 25 Anion Gap 7 L BUN 18 Creatinine 0.9 Creat Clearance w eGFR > 60 Random Glucose 95 Hemoglobin A1c % 6.7 H Calcium 8.4 L Phosphorus 3.4 Magnesium 2.2 Total Bilirubin 0.5 AST 16 ALT 18 Alkaline Phosphatase 89 Troponin I C-Reactive Protein Total Protein 6.5 Albumin 3.4 Urine Color Urine Appearance Urine pH Ur Specific [place] Urine Protein Urine Glucose (UA) Urine Ketones Urine Blood Urine Nitrite Urine Bilirubin Urine Urobilinogen Ur Leukocyte Esterase Urine WBC (Auto) Urine RBC (Auto) Ur Epithelial Cells 10/09/18 06:20 WBC RBC Hgb Hct MCV MCH MCHC RDW Plt Count MPV Absolute Neuts (auto) Neutrophils % Lymphocytes % Monocytes % Eosinophils % Basophils % Nucleated RBC % ESR Sodium Potassium Chloride Carbon Dioxide Anion Gap BUN Creatinine Creat Clearance w eGFR Random Glucose Hemoglobin A1c % Calcium Phosphorus Magnesium Total Bilirubin AST ALT Alkaline Phosphatase Troponin I < 0.02 C-Reactive Protein Total Protein Albumin Urine Color Urine Appearance Urine pH Ur Specific [place] Urine Protein Urine Glucose (UA) Urine Ketones Urine Blood Urine Nitrite Urine Bilirubin Urine Urobilinogen Ur Leukocyte Esterase Urine WBC (Auto) Urine RBC (Auto) Ur Epithelial Cells Active Medications Generic Name Dose Route Start Last Admin Trade Name Freq PRN Reason Stop Dose Admin Amlodipine Besylate 5 mg 10/09/18 14:45 Norvasc - PO DAILY AIMEE Aspirin 81 mg 10/09/18 14:42 Asa - PO DAILY AIMEE Sodium Chloride 1,000 mls @ 0 mls/hr 10/08/18 15:45 10/08/18 18:56 Normal Saline - IV 1,000 mls/hr ASDIR AIMEE Administration Wide Open Rosuvastatin Calcium 10 mg 10/09/18 22:00 Crestor - PO HS AIMEE ASSESSMENT/PLAN: Patient is an 83 year old female with history of anterior sellar mass (2018) hypertension, hyperlipidemia, presents after episode of nausea, lightheadedness , and weakness. Pre-syncopal episode -Likely secondary to decreased oral intake, dehydration. Unlikely secondary to meningioma. -CT head shows no acute changes -EKG shows right bundle branch block and left ventricular hypertrophy at 68 BPM. -Patient is not orthostatic -Neurology consult (Dr. Jordan) Hypertension -Norvasc 5mg PO daily Hyperlipidemia -Rosuvastatin 10mg PO HS FEN -IV normal saline at -Follow CMP -Sodium controlled diet Prophylaxis -SCDs bilateral lower extremities Disposition -Observation on telemetry floor Visit type - Emergency Visit Emergency Visit: Yes ED Registration Date: 10/08/18 Care time: The patient presented to the Emergency Department on the above date and was hospitalized for further evaluation of their emergent condition. - New Patient This patient is new to me today: Yes Date on this admission: 10/09/18 - Critical Care Critical Care patient: No - Discharge Referral Referred to [facility] No
[2018-10-09] MEDS: SODIUM CHLORIDE 1,000 ML IV SCH (15:46)
[2018-10-09] MEDS: ASPIRIN 81 MG CHEWABLE TABLETS PO SCH (15:47)
[2018-10-09] MEDS: amLODIPine BESYLATE 5 MG TABLET (FP) PO SCH (15:47)
--- NOTE | 2018-10-09 20:56 | CON.NEURO ---
Consult Consult Specialty:: NEUROLOGY-BRANDY PEDERSON - History of Present Illness History of Present Illness: 83 y/o F with PMH HTN, HLD, with hx. of suprasellar meningioma (dx 11/2017), who presents to the ED c/o sudden episode nausea, lightheadedness that occurred this afternoon. As per pt, she went to [employer] at noon and felt well. However after, she developed a sudden episode of nausea (without emesis), lightheadedness a/w frontal JARAMILLO. She told the nurse at her scientologist, who recommended she drink gingerale and eat a cookie, however this did not alleviate her sx. She subsequently developed blurred vision and ataxic gait, requiring to lean on her for support. For this reason, she came to the ED for further evaluation. At baseline she walks on her own without a walker or cane. Daughter sick with the cold currently, and endorses recent urinary frequency as well as decreased fluid and PO intake d/t decreased appetite. Denies fall, syncope, LOC, current fever, chills, SOB, chest pain or pressure, or changes in bowel function. Ms. Hendricks reports she feels well now, denies that she had a headache yesterday "very little discomfort". Denies all other neurologic symptoms. Her suprasellar meningioma(enhancing) was discovered in 11/27(pls see report of MRI 11/15/17) and compared to current CT head does not appear changed to my review. - Alcohol/Substance Use Hx Alcohol Use: No - Smoking History Smoking history: Never smoked Have you smoked in the past 12 months: No Aproximately how many cigarettes per day: 0 Home Medications - Allergies Allergies/Adverse Reactions: Allergies Allergy/AdvReac Type Severity Reaction Status Date / Time Penicillins Allergy Mild Hives Verified 10/08/18 19:50 - Home Medications Home Medications: Ambulatory Orders Sulfamethoxazole/Trimethoprim [Bactrim Ds -] 1 tab PO BID #7 tablet 10/08/18 Amlodipine Besylate [Norvasc -] 5 mg PO DAILY 10/09/18 Aspirin 81 mg PO DAILY 10/09/18 Rosuvastatin Calcium [Crestor] 10 mg PO DAILY 10/09/18 Physical Exam-Neuro Vital Signs: Vital Signs Temperature 97.4 F L 10/09/18 18:43 Pulse Rate 76 10/09/18 18:43 Respiratory Rate 17 01/28/19 18:43 Blood Pressure 149/86 10/09/18 18:43 O2 Sat by Pulse Oximetry (%) 100 10/09/18 09:00 Labs: CBC, BMP 10/09/18 06:20 10/09/18 06:20 - Neuro Exam Level Of Consciousness: Yes: Alert, Oriented to Person, Oriented to Place, Oriented to Time Speech: WNL Cranial Nerves II-XII Intact: Yes (No field cut noted) DTR's: 0 Left Achilles, 0 Right Achilles, 2+ Left Bicep, 2+ Right Bicep, 2+ Left Tricep, 2+ Right Tricep, 2+ Left Brachioradialis, 2+ Right Brachioradialis Response to light touch: Normal Response to pain prick: Normal Response to temperature: Normal Response to vibration: Normal Motor Strength: 5/5: Left Arm, Right Arm, Left Leg, Right Leg Gait: Normal Assessment/Plan Pt. presents with a presyncopal spell likely due to dehydration?? orthostasis, she tells me she was not eating/drinking enough so she could fit in to a dress for a constitution party! I doubt she has cardiogenic syncope. Suprasellar meningioma- appears to be asymptomatic, she has no field cut nor sx.of pituitary dysfx. It does not appear to be surgical lesion at this time. I have reassured patient and encouraged her to keep herself hydrated. She will call my office for f/u if needed. Thank you, Meg Jordan MD
[2018-10-09] MEDS ORDERED: ROSUVASTATIN CA 10 MG TABLET (FP) PO SCH (22:00)
[2018-10-10 06:56] LABS: HEMATOCRIT 34.6 % (32.4-45.2); HEMOGLOBIN 11.8 GM/dL (10.7-15.3); MCHC 34.2 g/dl (32.0-36.0); MEAN CELL VOLUME 84.8 fl (80-96); MEAN PLT VOLUME 7.9 fl (7.5-11.1); PLATELET COUNT 209 K/MM3 (134-434); RBC 4.07 M/mm3 (3.60-5.2); RDW 14.3 % (11.6-15.6); WHITE BLOOD COUNT 8.5 K/mm3 (4.0-10.0)
[2018-10-10 07:19] LABS: ALBUMIN 3.3 g/dl (3.4-5.0); ALK PHOS 87 U/L (45-117); ANION GAP 8 MMOL/L (8-16); BILIRUBIN,TOTAL 0.7 mg/dL (0.2-1); BLOOD UREA NITROGEN 16 mg/dL (7-18); CALCIUM 8.9 mg/dL (8.5-10.1); CHLORIDE 110 mmol/L (98-107); CO2 24 mmol/L (21-32); CREATININE 0.8 mg/dL (0.55-1.3); GLUCOSE,RANDOM 94 mg/dL (74-106); SGOT/AST 15 U/L (15-37); SGPT/ALT 17 U/L (13-61); SODIUM 141 mmol/L (136-145); TOT PROT 6.2 g/dl (6.4-8.2)
[2018-10-10 07:56] VITALS: BP 150/76; PULSE 80; TEMP 98.3
[2018-10-10] MEDS: amLODIPine BESYLATE 5 MG TABLET (FP) PO SCH (09:05)
[2018-10-10] MEDS: ASPIRIN 81 MG CHEWABLE TABLETS PO SCH (09:05)
--- NOTE | 2018-10-10 12:31 | DS ---
Physical Exam: SUBJECTIVE: Patient seen and examined at bedside this morning. Patient does not endorse any acute complaints today. OBJECTIVE: Vital Signs Period Temp Pulse Resp BP Sys/Pablo Pulse Ox Last 24 Hr 97.4 F-98.4 F 65-80 17-20 127-158/61-86 99-99 PHYSICAL EXAM GENERAL: The patient is awake, alert, and fully oriented, in no acute distress. HEAD: Normocephalic, atraumatic EYES: PERRL, extraocular movements intact, sclera anicteric, conjunctiva clear. ENT: Oropharynx clear without exudates, moist mucous membranes. NECK: Supple without lymphadenopathy LUNGS: Breath sounds equal, clear to auscultation bilaterally, no wheezes, no crackles. No accessory muscle use. HEART: Regular rate and rhythm, S1, S2 without murmur, rub or gallop. ABDOMEN: Soft, nontender, nondistended. Normoactive bowel sounds, no guarding, no rebound tenderness. EXTREMITIES: 2+ pulses, warm, well-perfused, no lower extremity edema. NEUROLOGICAL: Cranial nerves II through XII grossly intact. Normal speech. PSYCH: Normal mood, normal affect upon my encounter. SKIN: Warm, dry. LABS Laboratory Results - last 24 hr 10/10/18 10/10/18 06:30 06:30 WBC 8.5 RBC 4.07 Hgb 11.8 Hct 34.6 MCV 84.8 MCH 29.0 MCHC 34.2 RDW 14.3 Plt Count 209 MPV 7.9 Sodium 141 Potassium 4.0 Chloride 110 H Carbon Dioxide 24 Anion Gap 8 BUN 16 Creatinine 0.8 Creat Clearance w eGFR > 60 Random Glucose 94 Calcium 8.9 Total Bilirubin 0.7 AST 15 ALT 17 Alkaline Phosphatase 87 Troponin I < 0.02 Total Protein 6.2 L Albumin 3.3 L HOSPITAL COURSE: Date of Admission:10/08/18 Date of Discharge: 10/10/18 Patient is an 83 year old female with history of anterior sellar mass (2018) hypertension, hyperlipidemia, presents after episode of nausea, lightheadedness , and weakness. CT head showed no acute changes. CTA head showed no gross focal stenosis, aneurysm or vascular malformation. EKG shows right bundle branch block and left ventricular hypertrophy at 68 BPM. Not significantly changed from October 2017 study. Patient was not orthostatic. She was evaluated by neurology who discussed outpatient follow up. Presyncopal episode likely secondary to decreased oral intake, dehydration. Patient was discharged home with instruction to continue home medications, and remain adequately hydrated. Follow up with primary care physician, neurology. Minutes to complete discharge: 35 Discharge Summary Reason For Visit: SUPRASELLAR MASS / ATAXIA / HEADACHE Current Active Problems Ataxia (Acute) Dehydration (Acute) HTN (hypertension) (Acute) Headache (Acute) Pre-syncope (Acute) Suprasellar mass (Acute) Condition: Stable - Instructions Diet, Activity, Other Instructions: You were admitted to the hospital after episode of lightheadedness, and weakness You were evaluated by the neurologist and are cleared for discharge. Continue taking your home medications as directed. Make sure to remain adequately hydrated and drink plenty of water. Follow up with your primary care physician within one week of discharge. Follow up with neurologist for your meningioma regularly Return to the nearest emergency department if you experience worsening symptoms , fall, loss of consciousness, fevers, chills, shortness of breath, chest pain, palpitations, abdominal pain, nausea, vomiting. Referrals: Olegario Jensen MD [Primary Care Provider] - 10/19/18 2:00 pm Zoe Jordan MD [Staff Physician] - Disposition: HOME - Home Medications Comprehensive Discharge Medication List: Ambulatory Orders Amlodipine Besylate [Norvasc -] 5 mg PO DAILY 10/09/18 Aspirin 81 mg PO DAILY 10/09/18 Rosuvastatin Calcium [Crestor] 10 mg PO DAILY 10/09/18 This patient is new to me today: No Emergency Visit: Yes ED Registration Date: 10/08/18 Care time: The patient presented to the Emergency Department on the above date and was hospitalized for further evaluation of their emergent condition. Critical Care patient: No - Discharge Referral Referred to [facility] Med P.C.: No
--- NOTE | 2018-10-10 17:30 | PN ---
Teaching Attending Note Name of Resident: Daniel Brewster ATTENDING PHYSICIAN STATEMENT I saw and evaluated the patient. I reviewed the resident's note and discussed the case with the resident. I agree with the resident's findings and plan as documented. SUBJECTIVE: Feels well - much improved. No further symptoms. OBJECTIVE: Afebrile/Hemodynamically Stable Last Vital Signs Temp Pulse Resp BP Pulse Ox 98.3 F 80 18 150/76 99 10/10/18 07:56 10/10/18 07:56 10/10/18 09:00 10/10/18 07:56 10/10/18 09:00 HEENT - Atraumatic, Normocephalic. Heart - S1, S2, RRR Lungs - clear to auscultation - no crackles/wheeze. Abdomen - soft, non-tender. Bowel Sounds normal Extremities - no edema, no calf tenderness. Neuro - AAO x 3. Tone/Power normal all 4 extremities. Laboratory Results - last 24 hr 10/10/18 10/10/18 06:30 06:30 WBC 8.5 RBC 4.07 Hgb 11.8 Hct 34.6 MCV 84.8 MCH 29.0 MCHC 34.2 RDW 14.3 Plt Count 209 MPV 7.9 Sodium 141 Potassium 4.0 Chloride 110 H Carbon Dioxide 24 Anion Gap 8 BUN 16 Creatinine 0.8 Creat Clearance w eGFR > 60 Random Glucose 94 Calcium 8.9 Total Bilirubin 0.7 AST 15 ALT 17 Alkaline Phosphatase 87 Troponin I < 0.02 Total Protein 6.2 L Albumin 3.3 L ASSESSMENT AND PLAN: 83 year old female with HTN, HLD, anterior sellar mass possible meningioma (dx ), who presented with complaints of a lightheaded episode with associated nausea that occurred at [facility]. 1. Presyncope, symptoms resolved. likely sec to dehydration due to poor po intake Lightheadedness improved with IV hydration. Echo - Grade 1 diastolic dysfunction. EKG - RBBB, LVH at 68bpm CT Head - Suprasellar mass (old) CTA Head - no hemodynamically significant stenosis. Medically, Neurologically and Hemodynamically stable for discharge. Evaluated by Neurology and cleared for discharge. 2. History of Meningioma - no change on CT Head 3. HTN - Continue Norvasc 4. HLD - Continue Rosuvastatin
== END 2018-10-10 12:45 | disposition home or self-care (01) ==
LOC: JER 14:20 → JERBED 21:02 → J7W 23:23
PROVIDERS: ADMIT Internal Medicine
DX: R27.0 Ataxia, unspecified (principal); D35.2 Benign neoplasm of pituitary gland; R51 Headache; I10 Essential (primary) hypertension; E78.5 Hyperlipidemia, unspecified; R55 Syncope and collapse; E86.0 Dehydration; Z88.0 Allergy status to penicillin; Z86.010 Personal history of colon polyps; Z96.651 Presence of right artificial knee joint
CPT/HCPCS: 36415; 70450-TC; 70496-TC; 71045-TC-FY; 80053; 81003; 81015; 83036; 83735; 84100; 84484; 85025; 85027; 85651; 86140; 87086; 93005; 93010; 93306-TC; 97116-GP; 97161-GP; 99282-25; G0378; J7030

== ENCOUNTER 2019-04-20 13:10 | Emergency (ER) | payer OTHER ==
[2019-04-20 13:27] VITALS: BP 157/70; PULSE 71; TEMP 97.8; BMI 27.4
[2019-04-20 14:33] LABS: BASO % 1.1 % (0-2.0); EOS % 3.3 % (0-4.5); HEMATOCRIT 39.2 % (32.4-45.2); LYMPH % 18.7 % (8-40); MCH 28.4 pg (25.7-33.7); MCHC 33.1 g/dl (32.0-36.0); MEAN CELL VOLUME 85.7 fl (80-96); MEAN PLT VOLUME 8.5 fl (7.5-11.1); MONO % 9.2 % (3.8-10.2); NEUT % 67.7 % (42.8-82.8); PLATELET COUNT 284 K/MM3 (134-434); RBC 4.58 M/mm3 (3.60-5.2); RDW 14.5 % (11.6-15.6); WHITE BLOOD COUNT 9.9 K/mm3 (4.0-10.0)
--- NOTE | 2019-04-20 14:36 | PDOC ---
History of Present Illness - General Chief Complaint: Headache Stated Complaint: HEADACHE Time Seen by Provider: 04/20/19 14:16 History Source: Patient Exam Limitations: No Limitations - History of Present Illness Initial Comments: 83 yo PMH HTN, HLD, known suprasellar meningioma (dx 11/2017), presenting with headache. Started yesterday night, sharp, occipital, associated with nausea without vomiting and dizziness she describes as "not being able to walk right, I had to hold onto the door to walk". Lasted about an hour before she took two Tylenol and her headache resolved; she slept without issue and woke up this morning feeling like her normal self without any difficulty walking. Feels that the headache and symptoms felt identical to previous episodes she has had. She is here because she has been told that when she has these types of headaches, she should come get checked out at the hospital. She specifically denies LOC, any fall, or any head trauma. Denies CP, abd pain, constipation/diarrhea, weakness, tingling, loss of sensation, fevers/chills. 04/20/19 14:21 Past History - Past Medical History Allergies/Adverse Reactions: Allergies Allergy/AdvReac Type Severity Reaction Status Date / Time Penicillins Allergy Mild Hives Verified 10/08/18 19:50 Home Medications: Ambulatory Orders Amlodipine Besylate [Norvasc -] 5 mg PO DAILY 10/09/18 Aspirin 81 mg PO DAILY 10/09/18 Donepezil HCl 5 mg PO HS 04/20/19 Anemia: No Asthma: No Cancer: No Cardiac Disorders: No CVA: No COPD: No CHF: No Dementia: No Diabetes: No GI Disorders: Yes (TUBULAR ADENOMA) Disorders: No HTN: Yes Hypercholesterolemia: No Liver Disease: No Seizures: No Thyroid Disease: No - Surgical History Abdominal Surgery: Yes Appendectomy: No Cardiac Surgery: No Cholecystectomy: No Lung Surgery: No Neurologic Surgery: No Orthopedic Surgery: Yes (RIGHT KNEE REPLACEMENT) - Family Disease History Family Disease History: Heart Disease: Mother - Immunization History Immunization Up to Date: Yes (flu 2 wks ago) - Suicide/Smoking/Psychosocial Hx Smoking Status: No Smoking History: Never smoked Have you smoked in the past 12 months: No Number of Cigarettes Smoked Daily: 0 Hx Alcohol Use: No Drug/Substance Use Hx: No Substance Use Type: None, Alcohol Hx Substance Use Treatment: No Review of Systems - Review of Systems Able to Perform ROS?: Yes Constitutional: No: Chills, Fever HEENTM: No: Recent change in vision, Difficulty Swallowing Respiratory: No: Cough, Shortness of Breath Cardiac (ROS): No: Chest Pain ABD/GI: Yes: Nausea (last night, resolved). No: Constipated, Diarrhea, Rectal Bleeding, Vomiting : No: Burning, Dysuria, Discharge, Frequency, Flank Pain Musculoskeletal: Yes: Back Pain Neurological: Yes: Headache (resolved now, was occipital, sharp). No: Numbness , Tingling *Physical Exam - Vital Signs Last Vital Signs Temp Pulse Resp BP Pulse Ox 97.8 F 71 20 157/70 98 04/20/19 13:24 04/20/19 13:24 04/20/19 13:24 04/20/19 13:24 04/20/19 13:24 - Physical Exam Comments: Gen: appropriately dressed, NAD Neuro: AAOX4, 5/5 strength HEENT: b/l incomplete cataracts, atraumatic, normocephalic CV: regular rate, regular rhythm Pulm: CTA b/l, no wheezing Abd: soft, non-distended, non-tender Extr: no edema MSK: normal ROM, no muscle wasting Skin: dry, intact Back: no ttp, no CVA tenderness 04/20/19 14:50 ED Treatment Course - LABORATORY CBC & Chemistry Diagram: 04/20/19 14:00 04/20/19 14:00 Medical Decision Making - Medical Decision Making Concern for existing mass enlargement, infection, electrolyte abnormality. EKG CBC CMP PT/INR UA/UC CT head 04/20/19 14:54 CBC and CMP wnl 04/20/19 15:00 CT head reviewed, no interval change 04/20/19 15:48 *DC/Admit/Observation/Transfer Diagnosis at time of Disposition: Headache - Discharge Dispostion Disposition: HOME Condition at time of disposition: Good Decision to Admit order: No - Referrals - Patient Instructions Printed Discharge Instructions: DI for Headache Additional Instructions: You were seen after you had a headache with dizziness. Your labs were normal and your CT scan showed no change in your known suprasellar meningioma. Please follow up with your primary care doctor. Return to the ED if you develop worsening headache, dizziness, chest pain, or abdominal pain. - Post Discharge Activity
[2019-04-20 14:43] LABS: ALBUMIN 4.1 g/dl (3.4-5.0); BILIRUBIN,TOTAL 0.6 mg/dL (0.2-1); BLOOD UREA NITROGEN 17.1 mg/dL (7-18); CALCIUM 9.8 mg/dL (8.5-10.1); CREATININE 0.9 mg/dL (0.55-1.3); POTASSIUM 4.8 mmol/L (3.5-5.1); TOT PROT 7.7 g/dl (6.4-8.2)
[2019-04-20 15:25] LABS: INR 1.06 (0.83-1.09); PROTHROMBIN TIME (PATIENT) 12.5 SEC (9.7-13.0)
[2019-04-20 16:26] LABS: PH,URINE 6.5 (5.0-8.0); URINE APPEARANCE CLEAR; URINE BILIRUBIN NEGATIVE (NEGATIVE); URINE COLOR YELLOW; URINE GLUCOSE (UA) NEGATIVE (NEGATIVE); URINE KETONE NEGATIVE (NEGATIVE); URINE LEUK ESTERASE NEGATIVE (NEGATIVE); URINE NITRITE NEGATIVE (NEGATIVE); URINE PROTEIN NEGATIVE (NEGATIVE); URINE UROBILINOGEN 0.2 mg/dL (0.2-1.0)
--- NOTE | 2019-04-20 17:05 | PDOC ---
Documentation entered by Loni Velasquez SCRIBE, acting as scribe for Naomi Prakash MD. Naomi Prakash MD: This documentation has been prepared by the Eva reed Brenda, SCRIBE, under my direction and personally reviewed by me in its entirety. I confirm that the documentation accurately reflects all work, treatment, procedures, and medical decision making performed by me. Attending Attestation - Resident Resident Name: Adair Sarmiento - ED Attending Attestation I have performed the following: I have examined & evaluated the patient, The case was reviewed & discussed with the resident, I agree w/resident's findings & plan, Exceptions are as noted - HPI HPI: 04/20/19 14:53 The patient is an 83 year old female, with a significant PMH of PMH HTN, HLD and known suprasellar meningioma (dx 11/2017), who presents to the emergency department with an episode parietal headache radiating back to back of head. . She reports taking tylenol yesterday with complete relief, but coming in for evaluation due to past medical history. at time of her headache she had nausea, no vomiting. no recent trauma. no f/c no mod factors. since resolved. Patient currently has no complaints. Last MRI in October 2018 showed no changes in mass size. The patient denies chest pain and shortness of breath. Denies fever, chills, vomiting, diarrhea and constipation. Denies any urinary symptoms. Allergies: Penicillins Past surgical history: Right knee replacement. Social history: Alcohol use, Denies tobacco and illicit drug use. PCP: Milo Key 04/20/19 17:01 - Physicial Exam PE: 04/20/19 17:03 awake alert heart rrr no mrg abd soft nt nd lungs clear bilat.ext wwp. no edema. no calf tenderness. nuero alert oriented x 3. 5/5 all four ext. - Medical Decision Making 04/20/19 17:04 83 yo F h/o suprasellar meningioma here with headache. since resolved. no change to mental status. no focal weakness. was concerned today even though resolved came to have check it out. in past has seen dr Meneses, nuerologist. plan ct head labs ua r/o other causes of headache. pt head ct neg, unchanged. ua negative for infection. labs unremarkable. will dc home fu dr meneses. Heart Score/ECG Review #1 ECG reviewed & interpreted by me at: 17:05 General ECG Interpretation: Sinus Rhythm, Normal Rate (61), Normal Intervals, No acute ischemic changes
--- NOTE | 2019-04-21 15:19 | EKG ---
Test Reason : Blood Pressure : / mmHG Vent. Rate : 061 BPM Atrial Rate : 061 BPM P-R Int : 156 ms QRS Dur : 070 ms QT Int : 424 ms P-R-T Axes : 065 -05 022 degrees QTc Int : 426 ms NORMAL SINUS RHYTHM VOLTAGE CRITERIA FOR LEFT VENTRICULAR HYPERTROPHY INFERIOR INFARCT (CITED ON OR BEFORE 17-MAY-2017) ABNORMAL ECG WHEN COMPARED WITH ECG OF 08-OCT-2018 17:40, RIGHT BUNDLE BRANCH BLOCK IS NO LONGER PRESENT Confirmed by MD Nura, Jez ([id number]) on 04/21/2019 3:19:24 PM Referred By: Confirmed By:Jez Lyman MD
== END 2019-04-20 16:55 | disposition home or self-care (01) ==
LOC: JER 13:10
DX: R51 Headache (principal); I10 Essential (primary) hypertension
CPT/HCPCS: 36415; 70450-TC; 80053; 81003; 85025; 85610; 87086; 93005; 93010; 99283-25

== ENCOUNTER 2019-07-01 09:49 | Emergency (ER) | payer OTHER ==
[2019-07-01 09:55] VITALS: BP 159/76; PULSE 71; TEMP 98.4; BMI 31.8
[2019-07-01] MEDS ORDERED: ACETAMINOPHEN 325 MG TABLET (FP) PO ONE (10:06)
[2019-07-01] MEDS ORDERED: ACETAMINOPHEN 325 MG TABLET (FP) ONE (10:09)
--- NOTE | 2019-07-01 10:11 | PDOC ---
History of Present Illness - General Chief Complaint: Sore Throat Stated Complaint: SORE THROAT Time Seen by Provider: 07/01/19 09:57 History Source: Patient - History of Present Illness Timing/Duration: reports: just prior to arrival Past History - Past Medical History Allergies/Adverse Reactions: Allergies Allergy/AdvReac Type Severity Reaction Status Date / Time Penicillins Allergy Mild Hives Verified 07/01/19 09:56 Home Medications: Ambulatory Orders Amlodipine Besylate [Norvasc -] 5 mg PO DAILY 10/09/18 Aspirin 81 mg PO DAILY 10/09/18 Donepezil HCl 5 mg PO HS 04/20/19 Acetaminophen [Tylenol] 650 mg PO Q6H #30 capsule 07/01/19 Anemia: No Asthma: No Cancer: No Cardiac Disorders: No CVA: No COPD: No CHF: No Dementia: No Diabetes: No GI Disorders: Yes (TUBULAR ADENOMA) Disorders: No HTN: Yes Hypercholesterolemia: No Liver Disease: No Seizures: No Thyroid Disease: No - Surgical History Abdominal Surgery: Yes Appendectomy: No Cardiac Surgery: No Cholecystectomy: No Lung Surgery: No Neurologic Surgery: No Orthopedic Surgery: Yes (RIGHT KNEE REPLACEMENT) - Immunization History Immunization Up to Date: Yes (flu 2 wks ago) - Psycho Social/Smoking Cessation Hx Smoking Status: No Smoking History: Never smoked Have you smoked in the past 12 months: No Number of Cigarettes Smoked Daily: 0 Hx Alcohol Use: No Drug/Substance Use Hx: No Substance Use Type: None, Alcohol Hx Substance Use Treatment: No Respiratory Specific PMHX - Complaint Specific PMHX Hx Angina: No Review of Systems - Review of Systems Constitutional: No: Chills, Fever HEENTM: Yes: Throat Pain. No: Ear Pain Respiratory: No: Cough *Physical Exam - Vital Signs Last Vital Signs Temp Pulse Resp BP Pulse Ox 98.4 F 71 18 159/76 98 07/01/19 09:52 07/01/19 09:52 07/01/19 09:52 07/01/19 09:52 07/01/19 09:52 - Physical Exam General Appearance: Yes: Appropriately Dressed. No: Apparent Distress HEENT: positive: Normal ENT Inspection, Normal Voice, TMs Normal, Pharynx Normal. negative: Scleral Icterus (R), Scleral Icterus (L) Neck: positive: Supple. negative: Lymphadenopathy (R), Lymphadenopathy (L) Respiratory/Chest: negative: Respiratory Distress Integumentary: positive: Dry, Warm Neurologic: positive: Fully Oriented, Alert, Normal Mood/Affect Medical Decision Making - Medical Decision Making 07/01/19 10:21 84-year-old female with history of hypertension woke up with sore throat this a.m. Also states it is painful to swallow. No cough ear pain fever or chills. No tob hx See exam M/l viral phayngitis Exam wnl Dose of tylenol here -Dc w/ pain control -Reasons to return d/w pt Discharge - Discharge Information Problems reviewed: Yes Clinical Impression/Diagnosis: Sore throat Condition: Good Disposition: HOME - Additional Discharge Information Prescriptions: Acetaminophen [Tylenol] 650 mg PO Q6H #30 capsule - Follow up/Referral - Patient Discharge Instructions Patient Printed Discharge Instructions: Viral Pharyngitis Additional Instructions: Take tylenol as needed for pain Return to ED for worsening of symptoms - Post Discharge Activity
== END 2019-07-01 10:31 | disposition home or self-care (01) ==
LOC: JERFT 09:49
DX: J02.9 Acute pharyngitis, unspecified (principal); I10 Essential (primary) hypertension; Z96.651 Presence of right artificial knee joint; Z88.0 Allergy status to penicillin
CPT/HCPCS: 99281-25

== ENCOUNTER 2019-08-06 16:11 | Emergency (ER) | payer OTHER ==
--- NOTE | 2019-08-06 16:21 | PDOC ---
Rapid Medical Evaluation Time Seen by Provider: 08/06/19 16:18 Medical Evaluation: Allergies Allergy/AdvReac Type Severity Reaction Status Date / Time Penicillins Allergy Mild Hives Verified 07/01/19 09:56 08/06/19 16:21 I have performed a brief in-person evaluation of this patient. The patient presents with a chief complaint of: back pain Pertinent physical exam findings:stable and in NAD, non-focal I have ordered the following: The patient will proceed to the ED for further evaluation.
[2019-08-06 16:35] VITALS: BP 179/79; PULSE 75; TEMP 97.7; BMI 27.4
[2019-08-06 17:39] LABS: EPI CELLS 3.4 /HPF (0-5/HPF); HYALINE CASTS 19 /lpf (0-8); PH,URINE 5.5 (5.0-8.0); URINE APPEARANCE CLEAR; URINE BACTERIA 1.7 /hpf (NEGATIVE); URINE BILIRUBIN NEGATIVE (NEGATIVE); URINE COLOR YELLOW; URINE GLUCOSE (UA) NEGATIVE (NEGATIVE); URINE KETONE NEGATIVE (NEGATIVE); URINE LEUK ESTERASE 1+ (NEGATIVE); URINE NITRITE NEGATIVE (NEGATIVE); URINE PROTEIN NEGATIVE (NEGATIVE); URINE RBC 2 /hpf (0-4); URINE WBC 20 /hpf (0-5)
--- NOTE | 2019-08-06 18:36 | PDOC ---
History of Present Illness - General Chief Complaint: Back Pain Stated Complaint: BACK PAIN Time Seen by Provider: 08/06/19 16:18 - History of Present Illness Initial Comments: 08/06/19 18:31 84-year-old female presents for evaluation of lower back pain x1 day without radicular symptoms no urinary symptoms loss of bowel bladder function saddle paresthesias or retention. Past History - Past Medical History Allergies/Adverse Reactions: Allergies Allergy/AdvReac Type Severity Reaction Status Date / Time Penicillins Allergy Mild Hives Verified 08/06/19 16:35 Home Medications: Ambulatory Orders Amlodipine Besylate [Norvasc -] 5 mg PO DAILY 10/09/18 Aspirin 81 mg PO DAILY 10/09/18 Donepezil HCl 5 mg PO HS 04/20/19 Acetaminophen [Tylenol] 650 mg PO Q6H #30 capsule 07/01/19 Anemia: No Asthma: No Cancer: No Cardiac Disorders: No CVA: No COPD: No CHF: No Dementia: No Diabetes: No GI Disorders: Yes (TUBULAR ADENOMA) Disorders: No HTN: Yes Hypercholesterolemia: No Liver Disease: No Seizures: No Thyroid Disease: No - Surgical History Abdominal Surgery: Yes Appendectomy: No Cardiac Surgery: No Cholecystectomy: No Lung Surgery: No Neurologic Surgery: No Orthopedic Surgery: Yes (RIGHT KNEE REPLACEMENT) - Immunization History Immunization Up to Date: Yes (flu 2 wks ago) - Psycho Social/Smoking Cessation Hx Smoking Status: No Smoking History: Never smoked Have you smoked in the past 12 months: No Number of Cigarettes Smoked Daily: 0 Information on smoking cessation initiated: No Hx Alcohol Use: No Drug/Substance Use Hx: No Substance Use Type: None, Alcohol Hx Substance Use Treatment: No Review of Systems - Review of Systems Musculoskeletal: Yes: Back Pain *Physical Exam - Vital Signs Last Vital Signs Temp Pulse Resp BP Pulse Ox 97.7 F 75 16 179/79 H 100 08/06/19 16:15 08/06/19 16:15 08/06/19 16:15 08/06/19 16:15 08/06/19 16:15 - Physical Exam Comments: 08/06/19 18:31 There is no CVA tenderness. Lumbar spine skin color and temperature are normal. No midline tenderness. Moderate right and left paralumbar musculature tenderness and spasm. 5 out of 5 strength bilateral lower extremities without gross sensorimotor deficits neurovascular intact. ED Treatment Course - ADDITIONAL ORDERS Additional order review: Laboratory Results 08/06/19 17:17 Urine Color Yellow Urine Appearance Clear Urine pH 5.5 Ur Specific [place] 1.030 Urine Protein Negative Urine Glucose (UA) Negative Urine Ketones Negative Urine Blood Negative Urine Nitrite Negative Urine Bilirubin Negative Urine Urobilinogen 1.0 Ur Leukocyte Esterase 1+ H Urine WBC (Auto) 20 Urine RBC (Auto) 2 Urine Casts (Auto) 19 U Epithel Cells (Auto) 3.4 Urine Bacteria (Auto) 1.7 - RADIOLOGY Radiology Studies Ordered: Category Date Time Status SPINE-LUMBAR ONLY [RAD] Stat Radiology 08/06/19 17:46 Taken Medical Decision Making - Medical Decision Making 08/06/19 18:32 Urine questionable for UTI however this may be a contaminated specimen. Recommend Tylenol for pain. Patient takes a number of medications she is unaware of at home she cannot tell me the names we will stick with Tylenol for now and follow-up with primary care physician Discharge - Discharge Information Problems reviewed: Yes Clinical Impression/Diagnosis: Back pain Condition: Stable Disposition: HOME - Admission No - Follow up/Referral Referrals: Carlos Alberto Coronel MD [Staff Physician] - - Patient Discharge Instructions Patient Printed Discharge Instructions: Low Back Pain, DI for Low Back Pain Additional Instructions: Tylenol as directed for pain. Return to the emergency room for worsening symptoms. Without fail please follow-up with your primary care physician in 1 to 2 days for further evaluation and treatment options. - Post Discharge Activity
== END 2019-08-06 18:52 | disposition home or self-care (01) ==
LOC: JER 16:11 → JERFT 16:11
DX: M54.5 Low back pain (principal); I10 Essential (primary) hypertension; Z87.19 Personal history of other diseases of the digestive system; Z88.0 Allergy status to penicillin; Z96.651 Presence of right artificial knee joint
CPT/HCPCS: 72100-TC-FY; 81003; 87086; 99282-25

== ENCOUNTER 2019-09-24 19:30 | Emergency (ER) | payer OTHER ==
[2019-09-24 19:46] VITALS: BP 188/66; PULSE 85; TEMP 98; BMI 31.8
[2019-09-24] MEDS ORDERED: CODEINE SO4 30 MG TABLET PO ONE (22:05)
[2019-09-24] MEDS ORDERED: ACETAMINOPHEN WITH CODEINE 300MG/30MG TABLET PO ONE (22:06)
--- NOTE | 2019-09-24 22:11 | PDOC ---
History of Present Illness - General Chief Complaint: Cold Symptoms Stated Complaint: COLD SYMPTOMS Time Seen by Provider: 09/24/19 21:55 History Source: Patient Exam Limitations: No Limitations - History of Present Illness Initial Comments: 09/24/19 22:08 HISTORY OF PRESENT ILLNESS: 84-year-old woman with past medical history of hypertension, dementia presents to the emergency department for evaluation of dry productive cough for 2 days. Patient states she had a coughing fit at home yesterday lasting approximately 5 minutes which resolved spontaneously. Patient took her prescribed Tessalon Perles which helped with the cough. She had no more coughing until this afternoon when she had another episode where she coughed for 5 minutes straight. At the conclusion of coughing she developed a mild headache rated 4/10. She reports during this episode of coughing she had some thick clear mucus expectorated. Patient took an over-the- counter cough syrup but does not remember what the ingredients were She denies any fevers, chills, chest pain, shortness of breath, abdominal pain. No recent travel or sick contacts. PAST MEDICAL HISTORY: See HPI SURGICAL HISTORY: Denies ALLERGIES: Penicillin REVIEW OF SYSTEMS General/Constitutional: Denies fever or chills. Denies weakness, weight change. HEENT: Denies change in vision. Denies ear pain or discharge. Denies sore throat. Cardiovascular: Denies chest pain or shortness of breath. Respiratory: See HPI Gastrointestinal: Denies nausea, vomiting, diarrhea or constipation. Denies rectal bleeding. Genitourinary: Denies dysuria, frequency, or change in urination. Musculoskeletal: Denies joint or muscle swelling or pain. Denies neck or back pain. Skin and breasts: Denies rash or easy bruising. Neurologic: See HPI Psychiatric: Denies depression or anxiety. Endocrine: Denies increased thirst. Denies abnormal weight change. Hematologic/Lymphatic: Denies anemia, easy bleeding, or history of blood clots. Allergic/Immunologic: Denies hives or skin allergy. Denies latex allergy. PHYSICAL EXAM General Appearance: Well-appearing, appropriately dressed. No apparent distress , no intoxication. HEENT: EOMI, PERRLA, normal ENT inspection, normal voice, TMs normal, pharynx normal. No conjunctival pallor. No photophobia, scleral icterus. Neck: Supple. Trachea midline. No tenderness, rigidity, carotid bruit, stridor , lymphadenopathy, or thyromegaly. Respiratory/Chest: Lungs CTAB. No shortness of breath, chest tenderness, respiratory distress, accessory muscle use. No crackles, rales, rhonchi, stridor , wheezing, dullness Cardiovascular: RRR. S1, S2. No JVD, murmur, bradycardia, tachycardia. Vascular Pulses: Dorsalis-Pedis (R): 2+, Dorsalis-Pedis (L): 2+ Gastrointestinal/Abdominal: Normal bowel sounds. Abdomen soft, non-distended. No tenderness or rebound tenderness. No organomegaly, pulsatile mass, guarding, hernia, hepatomegaly, splenomegaly. Lymphatic: No adenopathy, tenderness. Musculoskeletal/Extremities: Normal inspection. FROM of all extremities, normal capillary refill. Pelvis Stable. No CVA tenderness. No tenderness to extremities, pedal edema, swelling, erythema or deformity. Integumentary: Appropriate color, dry, warm. No cyanosis, erythema, jaundice or rash Neurologic: rnfa II-XII intact. Fully oriented, alert. Appropriate mood/affect. Motor strength 5/5. No appreciable EOM palsy, facial droop or sensory deficit. Gait is steady. Past History - Past Medical History Allergies/Adverse Reactions: Allergies Allergy/AdvReac Type Severity Reaction Status Date / Time Penicillins Allergy Mild Hives Verified 08/06/19 16:35 Home Medications: Ambulatory Orders Amlodipine Besylate [Norvasc -] 5 mg PO DAILY 10/09/18 Aspirin 81 mg PO DAILY 10/09/18 Donepezil HCl 5 mg PO HS 04/20/19 Acetaminophen [Tylenol] 650 mg PO Q6H #30 capsule 07/01/19 Benzonatate [Tessalon Pearls -] 200 mg PO TID #42 cap 09/25/19 Anemia: No Asthma: No Cancer: No Cardiac Disorders: No CVA: No COPD: No CHF: No Dementia: No Diabetes: No GI Disorders: Yes (TUBULAR ADENOMA) Disorders: No HTN: Yes Hypercholesterolemia: No Liver Disease: No Seizures: No Thyroid Disease: No - Surgical History Abdominal Surgery: Yes Appendectomy: No Cardiac Surgery: No Cholecystectomy: No Lung Surgery: No Neurologic Surgery: No Orthopedic Surgery: Yes (RIGHT KNEE REPLACEMENT) - Immunization History Immunization Up to Date: Yes (flu 2 wks ago) - Psycho Social/Smoking Cessation Hx Smoking Status: No Smoking History: Never smoked Have you smoked in the past 12 months: No Number of Cigarettes Smoked Daily: 0 Hx Alcohol Use: No Drug/Substance Use Hx: No Substance Use Type: None, Alcohol Hx Substance Use Treatment: No *Physical Exam - Vital Signs Last Vital Signs Temp Pulse Resp BP Pulse Ox 98 F 85 18 188/66 H 98 09/24/19 19:43 09/24/19 19:43 09/24/19 19:43 09/24/19 19:43 09/24/19 19:43 ED Treatment Course - RADIOLOGY Radiology Studies Ordered: Category Date Time Status CHEST PA & LAT [RAD] Stat Radiology 09/24/19 22:05 Ordered Medical Decision Making - Medical Decision Making 09/24/19 22:10 A/P: 84-year-old woman with dry productive cough over 2 days While patient is taken lisinopril, low likelihood that this is a side effect of lisinopril as this is a productive cough that comes in short episodes. Patient is hypertensive with a systolic blood pressure of 188. Likely due to [id number] cough medicine patient was taking. Chest x-ray Tylenol 3 1 tablet orally now Reassess 09/25/19 00:04 Chest x-ray as read by me: Ivet perez. Cardiac silhouette is within normal limits. No focal infiltrates or consolidations present. Discharged home with prescription for Tessalon Perles as patient only has a few pills left. I discussed the physical exam findings, ancillary test results and final diagnoses with the patient. I answered all of the patient's questions. The patient was satisfied with the care received and felt comfortable with the discharge plan and treatment plan. The patient will call their primary care physician within 24 hours to arrange follow-up and will return to the Emergency Department with any new, persistent or worsening symptoms. 09/25/19 20:14 Discharge - Discharge Information Problems reviewed: Yes Clinical Impression/Diagnosis: Cough Condition: Fair Disposition: HOME - Admission No - Additional Discharge Information Prescriptions: Benzonatate [Tessalon Pearls -] 200 mg PO TID #42 cap - Follow up/Referral Referrals: Milo Key [Primary Care Provider] - - Patient Discharge Instructions Additional Instructions: Rest, drink lots of fluids: Teas, water, soups, Pedialyte Avoid contact with others until cough has resolved Lots of handwashing and good hygiene Surya Chiang as directed for cough Tylenol or Motrin for fever and pain Followup with private physician in one to 2 days as needed Return to emergency department for worsened symptoms, fevers, dehydration - Post Discharge Activity
--- NOTE | 2019-09-24 22:14 | PDOC ---
*Physical Exam - Vital Signs Last Vital Signs Temp Pulse Resp BP Pulse Ox 98 F 85 18 188/66 H 98 09/24/19 19:43 09/24/19 19:43 09/24/19 19:43 09/24/19 19:43 09/24/19 19:43 Medical Decision Making - Medical Decision Making 09/24/19 22:14 Patient seen by the advanced practice provider under my direct supervision. Ancillary testing reviewed as necessary. I agree with plan as outlined by the advanced practice provider. Discharge - Discharge Information Problems reviewed: Yes Clinical Impression/Diagnosis: Cough Condition: Fair Disposition: HOME - Additional Discharge Information Prescriptions: Benzonatate [Tessalon Pearls -] 200 mg PO TID #42 cap - Follow up/Referral Referrals: Milo Key [Primary Care Provider] - - Patient Discharge Instructions Additional Instructions: Rest, drink lots of fluids: Teas, water, soups, Pedialyte Avoid contact with others until cough has resolved Lots of handwashing and good hygiene Surya Chiang as directed for cough Tylenol or Motrin for fever and pain Followup with private physician in one to 2 days as needed Return to emergency department for worsened symptoms, fevers, dehydration - Post Discharge Activity
[2019-09-24] MEDS ORDERED: ACETAMINOPHEN WITH CODEINE 300MG/30MG TABLET ONE (22:32)
== END 2019-09-25 00:31 | disposition home or self-care (01) ==
LOC: JERFT 19:30 → SUPCPDRO 19:30 → JER 19:30
DX: R05 Cough (principal); I10 Essential (primary) hypertension; F03.90 Unspecified dementia, unspecified severity, without behavioral disturbance, psychotic disturbance, mood disturbance, and anxiety; Z87.19 Personal history of other diseases of the digestive system
CPT/HCPCS: 71046-TC-FY; 99281-25

== ENCOUNTER 2019-10-11 17:21 | Emergency (ER) | payer OTHER ==
[2019-10-11 17:55] VITALS: BP 170/75; PULSE 76; TEMP 98; BMI 31.5
--- NOTE | 2019-10-11 17:55 | PDOC ---
Rapid Medical Evaluation Time Seen by Provider: 10/11/19 17:50 Medical Evaluation: Allergies Allergy/AdvReac Type Severity Reaction Status Date / Time Penicillins Allergy Mild Hives Verified 10/11/19 17:50 10/11/19 17:50 CC: cough since yesterday Pt is a 84 y/o female who presents to the ED with cough that worsening yesterday. She was seen last week for the cough and had a chest xray which was negative for acute pathology. The patient denies any fevers. Brief exam: No apparent distress, dry hacking cough appreciated in triage, Lungs clear Orders: none To ED for further evaluation Discharge Disposition - Diagnosis Cough - Referrals - Patient Instructions - Post Discharge Activity
--- NOTE | 2019-10-11 19:18 | PDOC ---
History of Present Illness - General Chief Complaint: Respiratory Stated Complaint: COLD SYMPTOMS Time Seen by Provider: 10/11/19 17:50 History Source: Patient Exam Limitations: No Limitations - History of Present Illness Initial Comments: 10/11/19 19:17 Nahomi Hendricks is an 84M presenting with intermittent non-productive cough. Reports 1-2 months of coughing fits without productive sputum, no chest pain, F/ C, nausea/vomiting, abdominal pain. Has seen PMD for this, was switched from Lisinopril to Losartan for HTN 2 weeks ago. out of concern for ACEI-induced cough, has not been effective. Was seen at ot been able to eat to eat well since last night since she keeps coughing. No other sick contacts, no history of asthma or other lung disease. Feeling well at this time other than a cough. Past History - Past Medical History Allergies/Adverse Reactions: Allergies Allergy/AdvReac Type Severity Reaction Status Date / Time Penicillins Allergy Mild Hives Verified 10/11/19 17:50 Home Medications: Ambulatory Orders Amlodipine Besylate [Norvasc -] 5 mg PO DAILY 10/09/18 Aspirin 81 mg PO DAILY 10/09/18 Acetaminophen [Tylenol] 650 mg PO Q6H #30 capsule 07/01/19 Benzonatate [Tessalon Pearls -] 200 mg PO TID #42 cap 09/25/19 Albuterol Sulfate [Albuterol Sulfate Hfa] 8.5 gm IH DAILY PRN #1 hfa.[email or web address] Donepezil HCl [Aricept -] 5 mg PO DAILY 10/11/19 Fluticasone Prop 0.05% Nasal [Flonase -] 2 spray NS DAILY 10/11/19 Lisinopril 5 mg PO DAILY 10/11/19 Losartan Potassium 50 mg PO DAILY 10/11/19 Pantoprazole Sodium [Protonix -] 40 mg PO DAILY #30 tablet.ec 10/11/19 Rosuvastatin [Crestor -] 10 mg PO DAILY 10/11/19 Anemia: No Asthma: No Cancer: No Cardiac Disorders: No CVA: No COPD: No CHF: No Dementia: No Diabetes: No GI Disorders: Yes (TUBULAR ADENOMA) Disorders: No HTN: Yes Hypercholesterolemia: No Liver Disease: No Seizures: No Thyroid Disease: No - Surgical History Abdominal Surgery: Yes Appendectomy: No Cardiac Surgery: No Cholecystectomy: No Lung Surgery: No Neurologic Surgery: No Orthopedic Surgery: Yes (RIGHT KNEE REPLACEMENT) - Immunization History Immunization Up to Date: Yes (flu 2 wks ago) - Psycho Social/Smoking Cessation Hx Smoking Status: No Smoking History: Never smoked Have you smoked in the past 12 months: No Number of Cigarettes Smoked Daily: 0 Hx Alcohol Use: No Drug/Substance Use Hx: No Substance Use Type: None, Alcohol Hx Substance Use Treatment: No Review of Systems - Review of Systems Able to Perform ROS?: Yes Constitutional: No: Chills, Fever HEENTM: No: Symptoms Reported Respiratory: Yes: Cough. No: Shortness of Breath, Wheezing, Productive cough Cardiac (ROS): No: Chest Pain, Edema, Irregular Heart Rate, Lightheadedness, Palpitations, Syncope ABD/GI: Yes: Poor Appetite, Poor Fluid Intake. No: Constipated, Diarrhea, Nausea, Vomiting : No: Burning, Dysuria, Discharge, Frequency, Flank Pain Musculoskeletal: No: Back Pain, Gout, Joint Pain, Joint Swelling, Muscle Pain, Muscle Weakness Integumentary: No: Symptoms Reported Neurological: No: Headache, Numbness, Paresthesia, Pre-Existing Deficit, Seizure , Tingling, Tremors, Weakness Endocrine: No: Symptoms Reported Hematologic/Lymphatic: No: Symptoms Reported All Other Systems: Reviewed and Negative *Physical Exam - Vital Signs Last Vital Signs Temp Pulse Resp BP Pulse Ox 98 F 76 18 170/75 100 10/11/19 17:52 10/11/19 17:52 10/11/19 17:52 10/11/19 17:52 10/11/19 17:52 - Physical Exam General Appearance: Yes: Nourished, Appropriately Dressed, Obese HEENT: positive: EOMI, GIBRAN, Normal ENT Inspection, Normal Voice, Symmetrical, Pharynx Normal, Hearing Grossly Normal. negative: Scleral Icterus (R), Scleral Icterus (L), Pharyngeal Erythema, Tonsillar Exudate, Tonsillar Erythema Neck: positive: Trachea midline, Normal Thyroid, Supple. negative: Tender, Decreased range of motion, Lymphadenopathy (R), Lymphadenopathy (L), Tender lateral, Tender midline Respiratory/Chest: positive: Lungs Clear, Normal Breath Sounds, Accessory Muscle Use. negative: Chest Tender, Respiratory Distress, Crackles, Rales, Rhonchi, Stridor, Wheezing Cardiovascular: positive: Regular Rhythm, Regular Rate. negative: Murmur Gastrointestinal/Abdominal: positive: Normal Bowel Sounds, Soft, Organomegaly, Protuberent. negative: Tender, Pulsatile Mass, Guarding, Rebound Musculoskeletal: positive: Normal Inspection, Decreased Range of Motion Extremity: positive: Normal Capillary Refill, Normal Inspection, Normal Range of Motion, Pelvis Stable. negative: Tender Integumentary: positive: Normal Color, Dry, Warm. negative: Rash Neurologic: positive: Fully Oriented, Alert, Normal Mood/Affect, Normal Response , Motor Strength 5/5. negative: Numbness, Sensory Deficit Medical Decision Making - Medical Decision Making 10/11/19 20:16 Patient presents with intermittent cough without any other symptoms, no recent illness, no SOB, wheezing, lung disease, abdominal pain. Has already been switched off ACEI. Tessilon pearles ineffective at controlling sx. Ddx includes GERD, asthma, bronchitis. - CXR for eval PNA - albuterol nebs, no wheezing but may be asthma component - 40mg protonix PO for possible GERD component Will re-assess and likely dispo home with ENT and GI f/u. 10/11/19 21:53 CXR appears unchanged from normal prior on prelim read. Given albuterol and Protonix, tolerated well. 10/11/19 22:16 Re-evaluated, lungs clear. Stable for discharge home with protonix, albuterol, and f/u with GI, Pulm, and ENT. Discharge - Discharge Information Problems reviewed: Yes Clinical Impression/Diagnosis: Cough Condition: Stable Disposition: HOME - Additional Discharge Information Prescriptions: Albuterol Sulfate [Albuterol Sulfate Hfa] 8.5 gm IH DAILY PRN #1 hfa.aer.ad PRN Reason: Cough Pantoprazole Sodium [Protonix -] 40 mg PO DAILY #30 tablet.ec - Follow up/Referral Referrals: Lisa Morel NP [Primary Care Provider] - Benson Paez MD [Staff Physician] - Damian Borges MD [Staff Physician] - Helder Higgins MD, MD [Staff Physician] - - Patient Discharge Instructions Patient Printed Discharge Instructions: DI for Cough -- Adult Additional Instructions: Today you were evaluated for a cough. We think that your cough may be related to GERD or reflux. At home, please try taking Protonix each day and see if your cough improves. You need to follow-up with an ENT and GI doctor for further evaluation, and referrals have been given for you. We have sent you with prescriptions for an inhaler and some Protonix which may be useful in alleviating your cough. In the meantime, please take your medications and Tessilon as needed. if you experience fever, chills, chest pain, vomiting, or any other new or concerning symptoms, please return to the emergency room. - Post Discharge Activity
[2019-10-11] MEDS ORDERED: ALBUTEROL SO4 0.083% IH SOL 2.5 MG/3 ML VIAL.NEB. NEB ONE ×2 (20:00→20:46)
[2019-10-11] MEDS ORDERED: PANTOPRAZOLE 40 MG TABLET PO ONE (20:00)
--- NOTE | 2019-10-11 20:43 | PDOC ---
Documentation entered by Jez Tam SCRIBE, acting as scribe for Angelica Babb DO. Angelica Babb DO: This documentation has been prepared by the Yonatan reed Daniel, SCRIBE, under my direction and personally reviewed by me in its entirety. I confirm that the documentation accurately reflects all work, treatment, procedures, and medical decision making performed by me. Attending Attestation - Resident Resident Name: Corey Guerrero - ED Attending Attestation I have performed the following: I have examined & evaluated the patient, The case was reviewed & discussed with the resident, I agree w/resident's findings & plan, Exceptions are as noted - HPI HPI: 10/11/19 20:15 The patient is an 84 year old female with a past medical history of dementia, HTN, and HLD here today for evaluation of cough. The patient reports that she has had a chronic cough for the past month that is worse when lying flat. She notes that her cough is sometimes productive of clear sputum. Patient denies headache, lightheadedness. Denies fever, chills. Denies chest pain, shortness of breath. Denies nausea, vomiting, diarrhea, abdominal pain. Allergies: penicillins PCP: Lisa Morel - Physicial Exam PE: 10/11/19 20:16 Constitutional: Awake, alert, oriented. No acute distress. Head: Normocephalic. Atraumatic Eyes: PERRL. EOMI. Conjunctivae are not pale. ENT: Mucous membranes are moist and intact. Posterior pharynx without exudates or erythema. Uvula midline. Neck: Supple. Full ROM. No lymphadenopathy. Cardiovascular: Regular rate. Regular rhythm. S1, S2 regular. Distal pulses are 2+ and symmetric. Pulmonary/Chest: No evidence of respiratory distress. Clear to auscultation bilaterally No wheezing, rales or rhonchi. Abdominal: Soft and non-distended. There is no tenderness. No rebound, guarding or rigidity. No organomegaly. No palpable masses. Good bowel sounds. Back: No CVA tenderness. Musculoskeletal: No edema. No cyanosis. No clubbing. Full range of motion in all extremities. No calf tenderness. Radial/pedal pulses are intact and 2+ bilaterally Skin: Skin is warm and dry. No petechiae. No purpura. Neurological: Alert and oriented to person, place, and time. Cranial nerves II -XII are grossly intact. Normal speech. Strength is grossly symmetric. No sensory deficits. Psychiatric: Good eye contact. Normal interaction, affect and behavior. - Medical Decision Making 10/11/19 20:40 I, Dr. Angelica Babb, DO, attest that this document has been prepared under my direction and personally reviewed by me in its entirety. I further attest, that it accurately reflects all work, treatment, procedures and medical decision -making performed by me. a/p: 84yo female with chronic cough x a month -cough only at night when she lays down to sleep -now sleeping with 3 pillows -cough productive clear sputum -no f/c/rhinorrhea/sore throat -pt denies cp/sob -no sick contacts -cant sleep at night secondary to cough -given tessalon perls which did not improve the cough -suspect gerd induced cough with worsening cough when laying flat at night and better when upright -will start protonix -will also give albuterol in the er -will obtain cxr -pt is nontoxic in appearance 10/11/19 22:03 pt with cxr clear feels better after neb and protonix will give ent and gi for follow up, also dr. urbina
[2019-10-11] MEDS ORDERED: PANTOPRAZOLE 40 MG TABLET ONE (20:46)
== END 2019-10-11 22:22 | disposition home or self-care (01) ==
LOC: JER 17:21
PROC: 3E0F7GC Introduction of Other Therapeutic Substance into Respiratory Tract, Via Natural or Artificial Opening (ICD-10-PCS; principal; 2019-10-11)
DX: R05 Cough (principal); I10 Essential (primary) hypertension; Z88.0 Allergy status to penicillin; Z87.19 Personal history of other diseases of the digestive system
CPT/HCPCS: 71046-TC-FY; 99281-25

== ENCOUNTER 2019-10-26 10:00 | Emergency (ER) | payer OTHER ==
[2019-10-26 10:09] VITALS: BMI 31.5
--- NOTE | 2019-10-26 10:35 | PDOC ---
History of Present Illness - General Chief Complaint: Respiratory Stated Complaint: COLD SYMPTOMS Time Seen by Provider: 10/26/19 10:29 Past History - Past Medical History Allergies/Adverse Reactions: Allergies Allergy/AdvReac Type Severity Reaction Status Date / Time Penicillins Allergy Mild Hives Verified 10/11/19 17:50 Home Medications: Ambulatory Orders Amlodipine Besylate [Norvasc -] 5 mg PO DAILY 10/09/18 Aspirin 81 mg PO DAILY 10/09/18 Acetaminophen [Tylenol] 650 mg PO Q6H #30 capsule 07/01/19 Donepezil HCl [Aricept -] 5 mg PO DAILY 10/11/19 Lisinopril 5 mg PO DAILY 10/11/19 Rosuvastatin [Crestor -] 10 mg PO DAILY 10/11/19 Albuterol Sulfate [Proair Hfa] 1 puff IN ASDIR 10/26/19 Amlodipine Besylate 5 mg PO DAILY 10/26/19 Losartan Potassium 50 mg PO DAILY 10/26/19 Pantoprazole Sodium 40 mg PO DAILY 10/26/19 Anemia: No Asthma: No Cancer: No Cardiac Disorders: No CVA: No COPD: No CHF: No Dementia: No Diabetes: No GI Disorders: Yes (TUBULAR ADENOMA) Disorders: No HTN: Yes Hypercholesterolemia: No Liver Disease: No Seizures: No Thyroid Disease: No - Surgical History Abdominal Surgery: Yes Appendectomy: No Cardiac Surgery: No Cholecystectomy: No Lung Surgery: No Neurologic Surgery: No Orthopedic Surgery: Yes (RIGHT KNEE REPLACEMENT) - Immunization History Immunization Up to Date: Yes (flu 2 wks ago) - Psycho Social/Smoking Cessation Hx Smoking Status: No Smoking History: Never smoked Have you smoked in the past 12 months: No Number of Cigarettes Smoked Daily: 0 Hx Alcohol Use: No Drug/Substance Use Hx: No Substance Use Type: None, Alcohol Hx Substance Use Treatment: No *Physical Exam - Vital Signs Last Vital Signs Temp Pulse Resp BP Pulse Ox 97.7 F 71 20 174/71 H 100 10/26/19 10:06 10/26/19 10:06 10/26/19 10:06 10/26/19 10:06 10/26/19 10:06
[2019-10-26] MEDS ORDERED: ALBUTEROL SO4 2.5/IPRATROPIUM 0.5 INH SOL 3 ML VIAL.NEB. NEB ONE ×2 (10:57→11:08)
[2019-10-26] MEDS ORDERED: predniSONE 20 MG TABLET (UD) PO ONE ×2 (11:26)
--- NOTE | 2019-10-26 11:38 | PDOC ---
History of Present Illness - General Chief Complaint: Respiratory Stated Complaint: COLD SYMPTOMS Time Seen by Provider: 10/26/19 10:29 - History of Present Illness Initial Comments: 10/26/19 11:28 84f with pmh of suprasellar mass and hyn presents with acute on chronic nocturnal cough for the past month (going on 15 years), used to be dry now white mucus production. States that it happens only at night when she lays in bed. Found some relief in the past with albuterol inhaler but wasn't able to afford the last prescription for Proair written for her. Denies any fever, chills, chest pain, abdominal pain. Past History - Past Medical History Allergies/Adverse Reactions: Allergies Allergy/AdvReac Type Severity Reaction Status Date / Time Penicillins Allergy Mild Hives Verified 10/11/19 17:50 Home Medications: Ambulatory Orders Amlodipine Besylate [Norvasc -] 5 mg PO DAILY 10/09/18 Aspirin 81 mg PO DAILY 10/09/18 Acetaminophen [Tylenol] 650 mg PO Q6H #30 capsule 07/01/19 Donepezil HCl [Aricept -] 5 mg PO DAILY 10/11/19 Lisinopril 5 mg PO DAILY 10/11/19 Rosuvastatin [Crestor -] 10 mg PO DAILY 10/11/19 Albuterol Sulfate [Proair Hfa] 1 puff IN ASDIR 10/26/19 Albuterol Sulfate [Proair Hfa] 8.5 gm IH PRN PRN #1 inhaler 10/26/19 Amlodipine Besylate 5 mg PO DAILY 10/26/19 Losartan Potassium 50 mg PO DAILY 10/26/19 Pantoprazole Sodium 40 mg PO DAILY 10/26/19 Anemia: No Asthma: No Cancer: No Cardiac Disorders: No CVA: No COPD: No CHF: No Dementia: No Diabetes: No GI Disorders: Yes (TUBULAR ADENOMA) Disorders: No HTN: Yes Hypercholesterolemia: No Liver Disease: No Seizures: No Thyroid Disease: No - Surgical History Abdominal Surgery: Yes Appendectomy: No Cardiac Surgery: No Cholecystectomy: No Lung Surgery: No Neurologic Surgery: No Orthopedic Surgery: Yes (RIGHT KNEE REPLACEMENT) - Immunization History Immunization Up to Date: Yes (flu 2 wks ago) - Psycho Social/Smoking Cessation Hx Smoking Status: No Smoking History: Never smoked Have you smoked in the past 12 months: No Number of Cigarettes Smoked Daily: 0 Hx Alcohol Use: No Drug/Substance Use Hx: No Substance Use Type: None, Alcohol Hx Substance Use Treatment: No Review of Systems - Review of Systems Able to Perform ROS?: Yes Is the patient limited Wolof proficient: No Constitutional: No: Symptoms Reported HEENTM: No: Symptoms Reported Respiratory: Yes: See HPI Cardiac (ROS): No: Symptoms Reported ABD/GI: No: Symptoms Reported : No: Symptoms Reported Neurological: No: Symptoms reported All Other Systems: Reviewed and Negative *Physical Exam - Vital Signs Last Vital Signs Temp Pulse Resp BP Pulse Ox 97.7 F 71 20 174/71 H 100 10/26/19 10:06 10/26/19 10:06 10/26/19 10:06 10/26/19 10:06 10/26/19 10:06 - Physical Exam General Appearance: Yes: Nourished, Appropriately Dressed. No: Apparent Distress HEENT: positive: EOMI, GIBRAN, Normal ENT Inspection Respiratory/Chest: positive: Lungs Clear, Wheezing. negative: Chest Tender, Respiratory Distress Cardiovascular: positive: Regular Rhythm, Regular Rate, S1, S2 Gastrointestinal/Abdominal: positive: Normal Bowel Sounds, Flat, Soft. negative : Tender Musculoskeletal: positive: Normal Inspection. negative: CVA Tenderness Extremity: positive: Normal Capillary Refill, Normal Inspection, Normal Range of Motion Neurologic: positive: Fully Oriented, Alert, Normal Mood/Affect ED Treatment Course - RADIOLOGY Radiology Studies Ordered: Category Date Time Status CHEST X-RAY PORTABLE* [RAD] Stat Radiology 10/26/19 10:58 Completed - Medications Given in the ED: ED Medications Discontinued Medications Generic Name Dose Route Start Last Admin Trade Name Kalen PRN Reason Stop Dose Admin Albuterol/Ipratropium 2 amp 10/26/19 10:57 10/26/19 11:08 Duoneb - NEB 10/26/19 10:58 2 amp ONCE ONE Administration Medical Decision Making - Medical Decision Making 10/26/19 11:39 Will treated her cough/wheezing with duoneb and prednisone and offer her a prescription with coupon for Proair . 10/26/19 12:46 Patient feels much better after treatrment. Ok to go home . Will offer referral to Dr. Seth for pulmonology follow up. Discharge - Discharge Information Problems reviewed: Yes Clinical Impression/Diagnosis: Cough Condition: Improved Disposition: HOME - Admission No - Additional Discharge Information Prescriptions: Albuterol Sulfate [Proair Hfa] 8.5 gm IH PRN PRN #1 inhaler PRN Reason: Asthma - Follow up/Referral Referrals: Lisa Morel NP [Primary Care Provider] - Preston Steh MD [Staff Physician] - - Patient Discharge Instructions Patient Printed Discharge Instructions: DI for Chronic Bronchitis Additional Instructions: Come back to the emergency departmnent for any new, worsening or concerning symptom. Follow up with Dr. Seth, Senior Education Specialist. 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 - Post Discharge Activity
[2019-10-26] MEDS ORDERED: predniSONE 20 MG TABLET (UD) ONE (12:09)
--- NOTE | 2019-10-26 12:20 | EKG ---
Test Reason : Blood Pressure : / mmHG Vent. 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
[2019-10-26 13:04] VITALS: BP 168/68; PULSE 70; TEMP 97.8
--- NOTE | 2019-10-26 13:37 | PDOC ---
Documentation entered by Ant Barrios SCRIBE, acting as scribe for Maya Jara MD. Maya Jara MD: This documentation has been prepared by the Sophie reed Nirvannie, SCRIBE, under my direction and personally reviewed by me in its entirety. I confirm that the documentation accurately reflects all work, treatment, procedures, and medical decision making performed by me. Attending Attestation - Resident Resident Name: GuillermoDwight - ED Attending Attestation I have performed the following: I have examined & evaluated the patient, The case was reviewed & discussed with the resident, I agree w/resident's findings & plan, Exceptions are as noted - HPI HPI: 10/26/19 12:38 The patient is a 84 year old female, with a significant past medical history of suprasellar mass, dementia, HTN, and HLD who presents to the emergency department with 1 months of progressively worsening cough. As per patient, her cough occurs at night and has been ongoing for approximately 15 years while lying in bed. Patient notes only minimal relief with her rescue inhaler, prompting her arrival to the ED. She denies recent fevers, chills, headache or dizziness. She denies recent nausea, vomit, diarrhea or constipation. She denies recent dysuria, frequency, urgency or hematuria. She denies recent chest pain or shortness of breath. Allergies: Penicillins Past surgical history: Right knee replacement. Social history: Social alcohol usage. Nonsmoker. Denies recreational drug use. Primary Care Physician: Dr. Lisa Morel - Physicial Exam PE: 10/26/19 13:19 Gen: alert, NAD. CV rrr no m/r/g Pulm: CTA b/l, speaking in complete sentences , good air entry - Medical Decision Making 10/26/19 13:20 pt presents to the ED complaining of persistent cough that has been intermittent for years. Cough was worse today so presented to the ED. Now is asymptomatic and lungs are clear, CXR is negative. will discharge home with pulmonology followup 10/26/19 13:35
== END 2019-10-26 13:00 | disposition home or self-care (01) ==
LOC: JER 10:00
PROC: 3E0F7GC Introduction of Other Therapeutic Substance into Respiratory Tract, Via Natural or Artificial Opening (ICD-10-PCS; principal; 2019-10-26)
DX: R05 Cough (principal); I10 Essential (primary) hypertension; D12.6 Benign neoplasm of colon, unspecified; Z96.651 Presence of right artificial knee joint; Z88.0 Allergy status to penicillin
CPT/HCPCS: 71045-TC-FY; 93005; 93010; 99284-25

== ENCOUNTER 2019-11-05 14:09 | Emergency (ER) | payer OTHER ==
[2019-11-05 14:35] VITALS: BMI 29.6
--- NOTE | 2019-11-05 14:37 | PDOC ---
Rapid Medical Evaluation Medical Evaluation: Allergies Allergy/AdvReac Type Severity Reaction Status Date / Time Penicillins Allergy Mild Hives Verified 10/11/19 17:50 I have performed a brief in-person evaluation of this patient. The patient presents with a chief complaint of: cough dry x2 days; denies fever , sob, cp, leg swelling; has been to ED multiple times for similar complaints; has ProAir but states it doesn't help much; denies smoking Pertinent physical exam findings: In NAD, +wheezing B/L I have ordered the following: Labs, CXR The patient will proceed to the ED for further evaluation. 11/05/19 14:34
[2019-11-05] MEDS ORDERED: predniSONE 20 MG TABLET (UD) PO ONE (14:44)
[2019-11-05 15:58] LABS: BASO % 0.7 % (0-2.0); EOS % 6.1 % (0-4.5); HEMATOCRIT 35.7 % (32.4-45.2); HEMOGLOBIN 11.9 GM/dL (10.7-15.3); LYMPH % 14.8 % (8-40); MCH 28.6 pg (25.7-33.7); MCHC 33.2 g/dl (32.0-36.0); MEAN CELL VOLUME 86.2 fl (80-96); MONO % 9.8 % (3.8-10.2); NEUT % 68.6 % (42.8-82.8); PLATELET COUNT 239 K/MM3 (134-434); RBC 4.15 M/mm3 (3.60-5.2); RDW 14.7 % (11.6-15.6); WHITE BLOOD COUNT 10.9 K/mm3 (4.0-10.0)
[2019-11-05 16:09] LABS: VENOUS PO2 < 49 mmHg (28-48)
[2019-11-05 16:26] LABS: ALBUMIN 3.9 g/dl (3.4-5.0); BILIRUBIN,TOTAL 0.6 mg/dL (0.2-1); BLOOD UREA NITROGEN 19.7 mg/dL (7-18); CALCIUM 9.7 mg/dL (8.5-10.1); CREATININE 0.9 mg/dL (0.55-1.3); POTASSIUM 5.1 mmol/L (3.5-5.1); TOT PROT 7.1 g/dl (6.4-8.2)
[2019-11-05] MEDS ORDERED: ALBUTEROL SO4 2.5/IPRATROPIUM 0.5 INH SOL 3 ML VIAL.NEB. NEB ONE ×2 (17:11→17:28)
--- NOTE | 2019-11-05 17:22 | PDOC ---
History of Present Illness - General Chief Complaint: Respiratory Stated Complaint: COUGH Time Seen by Provider: 11/05/19 14:32 History Source: Patient, Spouse ( at bedside) Exam Limitations: No Limitations - History of Present Illness Initial Comments: HPI: 84 y/o female presenting to [facility] ER complaining of recurrent cough for the past two days. States it is worse at night when she lays flat. Denies lower extremity swelling or paroxysmal nocturnal dyspnea. Cough is occasionally productive of a clear sputum. Denies observing a color change. Denies fevers or chills. Denies burning in esophagus or metallic taste in the mouth. Has been seen at this department for these symptoms several times of the past two months. Has also been evaluated by her PCP. Started a prescription for albuterol and inhaled fluticasone. Believes these medications help the cough for a few hours before it returns. No sick contacts. No history of lung disease. Never smoked. No smokers in the household. Medical Hx: - HTN Review of Systems: 10 point review of systems completed. All systems negative except as noted above. Physical Examination: Vital signs and nursing notes reviewed. Constitutional- Elderly adult female in no acute distress or obvious discomfort. Found standing and walking next to the hospital bed. Answered all questions appropriately and completely. Head- Normocephalic. No obvious external signs of trauma. Throat- Oral cavity and pharynx normal. No inflammation, swelling, exudate, or lesions. Teeth and gingiva in good general condition. Neck- Supple, trachea is midline. No cervical lymphadenopathy. Cardiovascular / Chest- Regular rate and regular rhythm. No murmur, rubs, clicks , or gallops. Peripheral pulses- radial pulses full. Trace pretibial edema bilaterally. Respiratory- Breathing unlabored. Speaking in multi-word responses without pausing for breath. Equal chest rise and fall. Trace diffuse expiratory wheeze. No stridor, rales, or rhonchi. Gastrointestinal- abdomen is soft, non-tender, non-distended. Neuro- Alert and oriented x4. Moving all four extremities spontaneously. Skin- Warm, dry, and intact. Psych- Affect- appropriate. Mood- normal. Speech was non-labored, non- pressured. MDM: 84 y/o female presenting with recurrent two day episode of nocturnal coughing w / h/o similar episodes. Afebrile. Vitals unremarkable for hypotension or tachycardia. Physical exam as described above. Orders initially placed by RME prior to my evaluation. EGK unremarkable for ischemic changes. CXR unremarkable for acute pathology. Lab work reviewed and unremarkable for significant derangement. Suspect likely laryngeal irritation from acid reflux as the cough is worse at night when going to bed. Low suspicion for CHF as pt has no other physical exam findings of fluid overload and BNP not elevated. Also possible MAGDY /ARB side effect, though would expect the cough to be more constant. Also possible asthma, though pt does not have a h/o asthma. Pt reassessed. Feels better after Duoneb. Also received Prednisone. Discussed results with pt and pt's . Will prescribe Tagamet for reflux symptoms. Refilled Albuterol inhaler. Provided referral to pulmonary clinic. Ventura Vigil M.D., PGY2 Emergency Medicine Resident Past History - Past Medical History Allergies/Adverse Reactions: Allergies Allergy/AdvReac Type Severity Reaction Status Date / Time Penicillins Allergy Mild Hives Verified 11/05/19 14:35 Home Medications: Ambulatory Orders Amlodipine Besylate [Norvasc -] 5 mg PO DAILY 10/09/18 Aspirin 81 mg PO DAILY 10/09/18 Acetaminophen [Tylenol] 650 mg PO Q6H #30 capsule 07/01/19 Donepezil HCl [Aricept -] 5 mg PO DAILY 10/11/19 Lisinopril 5 mg PO DAILY 10/11/19 Rosuvastatin [Crestor -] 10 mg PO DAILY 10/11/19 Albuterol Sulfate [Proair Hfa] 8.5 gm IH PRN PRN #1 inhaler 10/26/19 Amlodipine Besylate 5 mg PO DAILY 10/26/19 Losartan Potassium 50 mg PO DAILY 10/26/19 Pantoprazole Sodium 40 mg PO DAILY 10/26/19 Albuterol Sulfate [Proair Hfa] 1 puff IN ASDIR #1 hfa.aer.ad 11/05/19 Cimetidine [Tagamet Hb] 200 mg PO HS #30 tablet 11/05/19 Anemia: No Asthma: No Cancer: No Cardiac Disorders: No CVA: No COPD: No CHF: No Dementia: No Diabetes: No GI Disorders: Yes (TUBULAR ADENOMA) Disorders: No HTN: Yes Hypercholesterolemia: No Liver Disease: No Seizures: No Thyroid Disease: No - Surgical History Abdominal Surgery: Yes Appendectomy: No Cardiac Surgery: No Cholecystectomy: No Lung Surgery: No Neurologic Surgery: No Orthopedic Surgery: Yes (RIGHT KNEE REPLACEMENT) - Immunization History Immunization Up to Date: Yes (flu 2 wks ago) - Psycho Social/Smoking Cessation Hx Smoking Status: No Smoking History: Never smoked Have you smoked in the past 12 months: No Number of Cigarettes Smoked Daily: 0 Hx Alcohol Use: No Drug/Substance Use Hx: No Substance Use Type: None, Alcohol Hx Substance Use Treatment: No *Physical Exam - Vital Signs Last Vital Signs Temp Pulse Resp BP Pulse Ox 98.4 F 93 H 18 168/68 98 11/05/19 14:32 11/05/19 14:32 11/05/19 14:32 11/05/19 14:32 11/05/19 14:32 ED Treatment Course - LABORATORY CBC & Chemistry Diagram: 11/05/19 15:30 11/05/19 15:30 - ADDITIONAL ORDERS Additional order review: Laboratory Results 11/05/19 11/05/19 15:30 15:30 VBG pH 7.40 POC VBG pCO2 46.0 POC VBG pO2 < 49 H VBG HCO3 27.6 VBG O2 Sat (Bhargav) 45.6 L VBG Base Excess 2.7 H Sodium 143 Potassium 5.1 Chloride 109 H Carbon Dioxide 29 Anion Gap 5 L BUN 19.7 H Creatinine 0.9 Est GFR (CKD-EPI)AfAm 69.01 Est GFR (CKD-EPI)NonAf 59.55 Random Glucose 101 Calcium 9.7 Total Bilirubin 0.6 AST 23 ALT 21 Alkaline Phosphatase 86 Total Protein 7.1 Albumin 3.9 11/05/19 15:30 RBC 4.15 MCV 86.2 MCHC 33.2 RDW 14.7 MPV 8.0 Neutrophils % 68.6 Lymphocytes % 14.8 D Monocytes % 9.8 Eosinophils % 6.1 H D Basophils % 0.7 Discharge - Discharge Information Problems reviewed: Yes Clinical Impression/Diagnosis: Nocturnal cough with wheeze Condition: Improved Disposition: HOME - Admission No - Additional Discharge Information Prescriptions: Albuterol Sulfate [Proair Hfa] 1 puff IN ASDIR #1 hfa.aer.ad Cimetidine [Tagamet Hb] 200 mg PO HS #30 tablet - Follow up/Referral Referrals: Helder Higgins MD, [Staff Physician] - - Patient Discharge Instructions Patient Printed Discharge Instructions: DI for Gastroesophageal Reflux Disease (GERD), DI for Cough -- Adult, GERD Diet Additional Instructions: You were seen today for a cough. Your chest xray and blood work were normal. The cause of your cough is unclear. It could be one of the followin) Acid Reflux symptoms. I have sent a prescription for Tagamet to your pharmacy. Take this about one hour before bed. Do not eat an hour before bed. 2) A medication side effect. This cough could be a side effect of your high blood pressure medication. Talk to your primary care doctor about this possibility. I have also sent a refill for your inhaler. You can continue to try using it to help with your symptoms. You need to follow up with a freezing room worker. I have entered a referral for you to see Dr. Higgins. You will need to call to make an appointment. The number is included in this packet. A copy of [employer] results are attached to this packet. Take it to the appointment so your doctor can review them. Follow up with your primary care doctor in the next two weeks. You will need to call to make an appointment. The number is included in this packet. A copy of todays results are attached to this packet. Take it to the appointment so your doctor can review them. Go to the nearest emergency department if your condition worsens or you feel like you need additional emergency evaluation. Print Language: CZECH - Post Discharge Activity
[2019-11-05] MEDS ORDERED: predniSONE 20 MG TABLET (UD) ONE ×2 (17:28→17:29)
[2019-11-05] MEDS: ALBUTEROL SO4 2.5/IPRATROPIUM 0.5 INH SOL 3 ML VIAL.NEB. NEB SCH ×3 (17:30→18:02)
--- NOTE | 2019-11-05 17:36 | PDOC ---
Attending Attestation - Resident Resident Name: Ventura Vigil - ED Attending Attestation I have performed the following: I have examined & evaluated the patient, The case was reviewed & discussed with the resident, I agree w/resident's findings & plan, Exceptions are as noted - HPI HPI: 11/05/19 17:34 84y F hx of HTN, hl, gerd, presents with complaint of persistent cough. Patient states that she has had a persistent cough for the past month and a half. Cough seems to be worse in the evenings. The patient denies any associated symptoms such as dyspnea exertion, chest pain, fever, chills, nausea , vomiting, diaphoresis, leg swelling. Patient notes that the patient sleeps in a reclined position because makes her feel better. T - Physicial Exam PE: 11/05/19 18:23 GENERAL: The patient is awake, alert, and fully oriented, Nontoxic - in no acute distress. NECK: Normal range of motion, supple LUNGS: Scattered wheezing bilaterally, no acute respiratory distress, speaking sentences completely HEART: Regular rate and rhythm, normal S1 and S2 without murmur, rub or gallop. ABDOMEN: Soft, nontender, No guarding, no rebound. No CVA tenderness EXTREMITIES: Normal range of motion, no edema. No calf tenderness, negative Homans sign NEUROLOGICAL: No facial assymetry, Normal speech, moving all 4 extremity spontaneously symmetrically PSYCH: Normal mood, normal affect. SKIN: Warm, Dry, normal turgor, - Medical Decision Making 11/05/19 18:25 We will obtain blood work to screen for anemia, metabolic arrangements, CHF chest x-ray 11/05/19 18:39 The patient blood work was reviewed the chest x-ray is negative for any acute pathology, the patient's lab work also reviewed BNP is normal does not appear to be CHF. The patient's chest x-ray also does not reveal any signs of congestion. We will complete the DuoNeb that she is getting anticipate discharge with outpatient follow-up with PMD with return precautions
[2019-11-05 18:14] VITALS: TEMP 98.6
[2019-11-05 18:22] LABS: N-TERMINAL BNP 14.7 pg/ml (5-450)
[2019-11-05 20:21] VITALS: BP 140/66; PULSE 84
--- NOTE | 2019-11-06 09:40 | EKG ---
Test Reason : Blood Pressure : / mmHG Vent. Rate : 077 BPM Atrial Rate : 077 BPM P-R Int : 152 ms QRS Dur : 084 ms QT Int : 394 ms P-R-T Axes : 064 006 042 degrees QTc Int : 445 ms NORMAL SINUS RHYTHM WITH SINUS ARRHYTHMIA MINIMAL VOLTAGE CRITERIA FOR LVH, MAY BE NORMAL VARIANT INFERIOR INFARCT (CITED ON OR BEFORE 17-MAY-2017) ABNORMAL ECG WHEN COMPARED WITH ECG OF 26-OCT-2019 10:25, NO SIGNIFICANT CHANGE WAS FOUND Confirmed by Bj Bravo MD ([id number]) on 11/06/2019 9:40:36 AM Referred By: Confirmed By:Bj Bravo MD
== END 2019-11-05 20:27 | disposition home or self-care (01) ==
LOC: SUPCPDRO 14:09 → JER 14:09
PROC: 3E0F7GC Introduction of Other Therapeutic Substance into Respiratory Tract, Via Natural or Artificial Opening (ICD-10-PCS; principal; 2019-11-05)
PROC: 3E0F7GC Introduction of Other Therapeutic Substance into Respiratory Tract, Via Natural or Artificial Opening (ICD-10-PCS; 2019-11-05)
DX: R05 Cough (principal); R06.2 Wheezing; I10 Essential (primary) hypertension; Z87.19 Personal history of other diseases of the digestive system; Z96.651 Presence of right artificial knee joint
CPT/HCPCS: 36415; 71046-TC-FY; 80053; 82803; 83880; 85025; 93005; 93010; 94640; 99285-25

== ENCOUNTER 2019-11-07 20:55 | Inpatient (IN) | payer OTHER ==
--- NOTE | 2019-11-07 20:57 | PDOC ---
Rapid Medical Evaluation Time Seen by Provider: 11/07/19 20:57 Medical Evaluation: Allergies Allergy/AdvReac Type Severity Reaction Status Date / Time Penicillins Allergy Mild Hives Verified 11/05/19 14:35 11/07/19 20:57 I have performed a brief in-person evaluation of this patient. The patient presents with a chief complaint of: Cough. Cough chronic in nature w / multiple ER visits for same. Seen 2 days ago w/ neg w/u, including BNP and CXR. 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 Not given any cough meds 2 days ago. Has had wheezing in past though no h/o asthma and no tob hx. H/o HTN Pertinent physical exam findings:audible wheezing in triage, stable I have ordered the following:tres The patient will proceed to the ED for further evaluation. Discharge Disposition - Diagnosis Cough - Referrals - Patient Instructions - Post Discharge Activity
[2019-11-07] MEDS ORDERED: ALBUTEROL SO4 2.5/IPRATROPIUM 0.5 INH SOL 3 ML VIAL.NEB. NEB ONE ×2 (21:04→22:03)
[2019-11-07] MEDS: ALBUTEROL SO4 2.5/IPRATROPIUM 0.5 INH SOL 3 ML VIAL.NEB. NEB SCH ×2 (21:29→22:18)
[2019-11-07] MEDS ORDERED: methylPREDNISolone NA SUCC 125 MG/2 ML VIAL IVPB ONE (22:24)
[2019-11-07] MEDS ORDERED: methylPREDNISolone NA SUCC 125 MG/2 ML VIAL ONE (22:48)
[2019-11-07 23:09] LABS: HEMATOCRIT 34.9 % (32.4-45.2); HEMOGLOBIN 11.5 GM/dL (10.7-15.3); MCH 28.7 pg (25.7-33.7); MEAN CELL VOLUME 87.1 fl (80-96); MEAN PLT VOLUME 8.1 fl (7.5-11.1); PLATELET COUNT 225 K/MM3 (134-434); RBC 4.01 M/mm3 (3.60-5.2); RDW 14.9 % (11.6-15.6); WHITE BLOOD COUNT 14.2 K/mm3 (4.0-10.0)
--- NOTE | 2019-11-07 23:29 | PDOC ---
Documentation entered by Ant Barrios SCRIBE, acting as scribe for Joelle Kaufman DO. Joelle Kaufman DO: This documentation has been prepared by the Sophie reed Nirvannie, SCRIBE, under my direction and personally reviewed by me in its entirety. I confirm that the documentation accurately reflects all work, treatment, procedures, and medical decision making performed by me. History of Present Illness - General Chief Complaint: Respiratory Stated Complaint: COUGH Time Seen by Provider: 11/07/19 20:57 History Source: Patient Exam Limitations: No Limitations - History of Present Illness Initial Comments: 11/07/19 23:24 The patient is a year old female, with a significant past medical history of suprasellar mass, dementia, GERD, HTN, and HLD, who presents to the emergency department with 1.5 months of a persistent cough. Patient notes her cough has not improved despite multiple ER visits (4 prior visits, last visit 2 days ago) and compliance with outpatient medications, prompting her arrival to the ED. She denies recent chest pain or shortness of breath. She denies recent fevers, chills, headache or dizziness. She denies recent nausea, vomit, diarrhea or constipation. She denies recent dysuria, frequency, urgency or hematuria. Allergies: Penicillins Past surgical history: Right knee replacement. Social history: Social alcohol usage. Nonsmoker. Denies recreational drug use. Primary Care Physician: Dr. Lisa Morel Past History - Past Medical History Allergies/Adverse Reactions: Allergies Allergy/AdvReac Type Severity Reaction Status Date / Time Penicillins Allergy Mild Hives Verified 11/07/19 21:00 Home Medications: Ambulatory Orders Amlodipine Besylate [Norvasc -] 5 mg PO DAILY 10/09/18 Aspirin 81 mg PO DAILY 10/09/18 Acetaminophen [Tylenol] 650 mg PO Q6H #30 capsule 07/01/19 Donepezil HCl [Aricept -] 5 mg PO DAILY 10/11/19 Lisinopril 5 mg PO DAILY 10/11/19 Rosuvastatin [Crestor -] 10 mg PO DAILY 10/11/19 Albuterol Sulfate [Proair Hfa] 8.5 gm IH PRN PRN #1 inhaler 10/26/19 Amlodipine Besylate 5 mg PO DAILY 10/26/19 Losartan Potassium 50 mg PO DAILY 10/26/19 Pantoprazole Sodium 40 mg PO DAILY 10/26/19 Albuterol Sulfate [Proair Hfa] 1 puff IN ASDIR #1 hfa.aer.ad 11/05/19 Cimetidine [Tagamet Hb] 200 mg PO HS #30 tablet 11/05/19 Anemia: No Asthma: No Cancer: No Cardiac Disorders: No CVA: No COPD: No CHF: No Dementia: No Diabetes: No GI Disorders: Yes (TUBULAR ADENOMA) Disorders: No HTN: Yes Hypercholesterolemia: No Liver Disease: No Seizures: No Thyroid Disease: No - Surgical History Abdominal Surgery: Yes Appendectomy: No Cardiac Surgery: No Cholecystectomy: No Lung Surgery: No Neurologic Surgery: No Orthopedic Surgery: Yes (RIGHT KNEE REPLACEMENT) - Immunization History Immunization Up to Date: Yes (flu 2 wks ago) - Psycho Social/Smoking Cessation Hx Smoking Status: No Smoking History: Never smoked Have you smoked in the past 12 months: No Number of Cigarettes Smoked Daily: 0 Hx Alcohol Use: No Drug/Substance Use Hx: No Substance Use Type: None, Alcohol Hx Substance Use Treatment: No Review of Systems - Review of Systems Able to Perform ROS?: Yes Comments:: 11/07/19 23:24 GENERAL/CONSTITUTIONAL: No fever or chills. No weakness. HEAD, EYES, EARS, NOSE AND THROAT: No change in vision. No ear pain or discharge. No sore throat. GASTROINTESTINAL: No nausea, vomiting, diarrhea or constipation. GENITOURINARY: No dysuria, frequency, or change in urination. CARDIOVASCULAR: No chest pain or shortness of breath. RESPIRATORY: +Cough. No wheezing, or hemoptysis. MUSCULOSKELETAL: No joint or muscle swelling or pain. No neck or back pain. SKIN: No rash NEUROLOGIC: No headache, vertigo, loss of consciousness, or change in strength/ sensation. ENDOCRINE: No increased thirst. No abnormal weight change. HEMATOLOGIC/LYMPHATIC: No anemia, easy bleeding, or history of blood clots. ALLERGIC/IMMUNOLOGIC: No hives or skin allergy. All Other Systems: Reviewed and Negative *Physical Exam - Vital Signs Last Vital Signs Temp Pulse Resp BP Pulse Ox 98.0 F 91 H 20 163/65 98 11/07/19 20:56 11/07/19 20:56 11/07/19 20:56 11/07/19 20:56 11/07/19 20:56 - Physical Exam 11/07/19 23:28 GENERAL: Awake, mild respiratory distress HEAD: No signs of trauma EYES: PERRLA, EOMI, sclera anicteric, conjunctiva clear, visual acuity grossly intact ENT:mucous membranes moist NECK: Normal ROM, supple, no lymphadenopathy, JVD LUNGS: Diminished air entry with expiratory wheezing bilaterally involving entire lung field. HEART: Regular rate and rhythm, normal S1 and S2, no murmurs, rubs or gallops ABDOMEN: Soft, nontender, normoactive bowel sounds. No guarding, Non- distended. : CHEST WALL: BACK: No midline tenderness. EXTREMITIES: Normal range of motion, no edema. No clubbing or cyanosis. No erythema, or tenderness NEUROLOGICAL: Alert, and fully oriented x4, Cranial nerves II through XII grossly intact. Normal speech, normal gait. DTR's 2/4 bilaterally. SKIN: Warm, Dry, normal turgor, no rashes or lesions noted. ED Treatment Course - LABORATORY CBC & Chemistry Diagram: 11/07/19 22:45 11/07/19 22:45 - ADDITIONAL ORDERS Additional order review: 11/07/19 22:45 RBC 4.01 MCV 87.1 MCHC 33.0 RDW 14.9 MPV 8.1 - RADIOLOGY Radiology Studies Ordered: Category Date Time Status CHEST X-RAY PORTABLE* [RAD] Stat Radiology 11/07/19 22:24 Taken - Medications Given in the ED: ED Medications Discontinued Medications Generic Name Dose Route Start Last Admin Trade Name Freq PRN Reason Stop Dose Admin Albuterol/Ipratropium 1 amp 11/07/19 21:15 11/07/19 21:29 Duoneb - NEB 11/07/19 22:01 1 amp Q15M AIMEE Administration Medical Decision Making - Medical Decision Making 11/07/19 23:27 84-year-old female with several visits to the emergency department with persistent cough and shortness of breath Patient currently wheezing extensively bilaterally, not responsive to home albuterol Patient received DuoNeb's x2 as well as Solu-Medrol with minimal improvement Recent chest x-ray as well as x-ray from today shows no focal infiltrate Recent labs performed on Tuesday were unremarkable in regards to BNP and troponin Will admit for further evaluation due to outpatient failure Discharge - Discharge Information Problems reviewed: Yes Clinical Impression/Diagnosis: Acute bronchospasm Condition: Guarded - Admission Yes - Follow up/Referral Referrals: Lisa Morel NP [Primary Care Provider] - - Patient Discharge Instructions - Post Discharge Activity
--- NOTE | 2019-11-07 23:46 | PN ---
Teaching Attending Note Name of Resident: Va Benavidez ATTENDING PHYSICIAN STATEMENT I saw and evaluated the patient. I reviewed the resident's note and discussed the case with the resident. I agree with the resident's findings and plan as documented. SUBJECTIVE: Patient is an 84 year old woman with a PMH of Suprasellar mass, Dementia, Right knee replacement, Penicillin allergy, GERD, HTN, and HLD, who presents to the ER with 1.5 months of a persistent cough. Patient notes her cough has not improved despite multiple ER visits (4 prior visits, last visit 2 days ago) and compliance with outpatient medications, prompting her arrival to the ED. Symptoms are worse at night and she sleeps on two pillows. In the beginning the cough was nonproductive, but recently began to yield clear/white sputum. She denies recent chest pain, shortness of breath, recent fevers, chills, headache, dizziness, nausea, vomit, diarrhea, constipation, dysuria, frequency, urgency or hematuria. Denies alcohol, tobacco or illicit drug use. No sick contacts or recent travels. Has FH of HTN, DM and Asthma. OBJECTIVE: Alert Vital Signs Period Temp Pulse Resp BP Sys/Pablo Pulse Ox Last 24 Hr 98.0 F 91 20 163/65 98 HEENT: No Jaundice, eye redness or discharge, PERRLA, EOMI. Normocephalic, atraumatic. External ears are normal and hearing is grossly intact. No nasal discharge. Neck: Supple, nontender. No palpable adenopathy or thyromegaly. No JVD Chest: Good effort. Diminished breath sounds and expiratory wheezing; Clear to percussion. Heart: Regular. No S3, rub or murmur Abdomen: Not distended, soft, nontender and no HSM. No rebound or guarding. Normal bowel sounds. Ext: Peripheral pulses intact. Leg edema. Skin: Warm and dry. No petechiae, rash or ecchymosis. Neuro: Alert. Oriented x3. CN 2-12 grossly intact. Sensation grossly intact in all four extremities and DTR are symmetric. Psych: Appropriate mood and affect. Good insight. Home Medications Medication Instructions Recorded Amlodipine Besylate [Norvasc -] 5 mg PO DAILY 10/09/18 Aspirin 81 mg PO DAILY 10/09/18 Acetaminophen [Tylenol] 650 mg PO Q6H #30 capsule 07/01/19 Donepezil HCl [Aricept -] 5 mg PO DAILY 10/11/19 Lisinopril 5 mg PO DAILY 10/11/19 Rosuvastatin [Crestor -] 10 mg PO DAILY 10/11/19 Albuterol Sulfate [Proair Hfa] 8.5 gm IH PRN PRN #1 inhaler 10/26/19 Amlodipine Besylate 5 mg PO DAILY 10/26/19 Losartan Potassium 50 mg PO DAILY 10/26/19 Pantoprazole Sodium 40 mg PO DAILY 10/26/19 Albuterol Sulfate [Proair Hfa] 1 puff IN ASDIR #1 hfa.aer.ad 11/05/19 Cimetidine [Tagamet Hb] 200 mg PO HS #30 tablet 11/05/19 Abnormal Lab Results 11/07/19 22:45 WBC 14.2 H ASSESSMENT AND PLAN: 1. Persistent cough/Asthma exacerbation - Cause unclear. May be induced by ACEI/ ARB or aspiration associated with GERD. No acute abnormality on CXR. Will hold Losartan and Lisinopril and use Hydralazine and HCTZ for BP control. Will treat with Duoneb, Solumedrol, Singulair and Symbicort. Consult Pulmonary and get PFTs, ECHO and monitor on telemetry (?paroxysmal Afib). EKG shows NSR at 90/minute, LVH and inferior infarct of undetermined age. To address possible aspiration associated with GERD, patient urged to loose weight, sleep with the head of the bed elevated, eat dinner at least 4 hours before bedtime, and will treat her with Protonix 40 mg bid for 8 weeks. The latter interventions will only be necessary if the cough does not stop with discontinuation of ACEI and ARB. Leukocytosis possibly due to steroids. No acute abnormality on CXR and urinalysis is pending. Discontinue Cimetidine. Will continue comprehensive care for all of patients comorbid conditions. 2. Obesity Counseled on the risks associated with obesity. Will provide patient all the necessary assistance, counseling and positive reinforcement to facilitate weight loss. Consult record center specialist. 3. Hypertension - Will hold ACEI/ARB and use hydralazine 25 mg tid and HCTZ 12.5 mg qd. Revise regimen to ensure [id number] excellent BP control and job counselor patient on the injurious effects of uncontrolled hypertension. Nonpharmacologic measures to control hypertension like weight loss, salt restriction and exercise discussed. Importance of adherence to treatment regimen and attainment of normotension emphasized. 4. DVT prophylaxis - Lovenox 40 mg SQ q 24 hours. 5. Advance directives - Full code
--- NOTE | 2019-11-08 00:05 | HP ---
CHIEF COMPLAINT: Cough PCP: Dr. Morel HISTORY OF PRESENT ILLNESS: 84F PMH dementia, HTN, HLD who presents today with a cough that has persisted for the past 2 months. The cough occurs more frequently at night when she is lying down or sleeping. She describes nighttime awakenings with coughing fits. She has newly developed productive cough- she describes coughing up white to clear sputum which started 2 days ago. She has seen her PMD for workup as well multiple visits to the ED. She has recently been started on albuterol inhaler at home and cimetidine. She was told to discontinue her lisinopril in the past, however she has continued it. She requires 2 pillows to sleep at night, but denies any shortness of breath. She denies any fevers, chills, dysphagia, heartburn, chest pain, abdominal pain, nausea, vomiting, and diarrhea. 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 Lives at home with who makes sure she takes all of her medications. Is able to ambulate without support. Allergies Penicillins Allergy (Mild, Verified 11/07/19 21:00) Hives HOME MEDICATIONS: Home Medications Medication Instructions Recorded Amlodipine Besylate [Norvasc -] 5 mg PO DAILY 10/09/18 Aspirin 81 mg PO DAILY 10/09/18 Acetaminophen [Tylenol] 650 mg PO Q6H #30 capsule 07/01/19 Donepezil HCl [Aricept -] 5 mg PO DAILY 10/11/19 Lisinopril 5 mg PO DAILY 10/11/19 Rosuvastatin [Crestor -] 10 mg PO DAILY 10/11/19 Albuterol Sulfate [Proair Hfa] 8.5 gm IH PRN PRN #1 inhaler 10/26/19 Amlodipine Besylate 5 mg PO DAILY 10/26/19 Losartan Potassium 50 mg PO DAILY 10/26/19 Pantoprazole Sodium 40 mg PO DAILY 10/26/19 Albuterol Sulfate [Proair Hfa] 1 puff IN ASDIR #1 hfa.aer.ad 11/05/19 Cimetidine [Tagamet Hb] 200 mg PO HS #30 tablet 11/05/19 REVIEW OF SYSTEMS CONSTITUTIONAL: Absent: fever, chills, diaphoresis, generalized weakness, malaise, loss of appetite, weight change HEENT: Absent: rhinorrhea, nasal congestion, throat pain, throat swelling, difficulty swallowing, mouth swelling, ear pain, eye pain, visual changes CARDIOVASCULAR: Absent: chest pain, syncope, palpitations, irregular heart rate, lightheadedness , peripheral edema RESPIRATORY: Present: Cough Absent: shortness of breath, dyspnea with exertion, orthopnea, wheezing, stridor, hemoptysis GASTROINTESTINAL: Absent: abdominal pain, abdominal distension, nausea, vomiting, diarrhea, constipation, melena, hematochezia GENITOURINARY: Absent: dysuria, frequency, urgency, hesitancy, hematuria, flank pain, genital pain MUSCULOSKELETAL: Absent: myalgia, arthralgia, joint swelling, back pain, neck pain SKIN: Absent: rash, itching, pallor HEMATOLOGIC/IMMUNOLOGIC: Absent: easy bleeding, easy bruising, lymphadenopathy, frequent infections ENDOCRINE: Absent: unexplained weight gain, unexplained weight loss, heat intolerance, cold intolerance NEUROLOGIC: Absent: headache, focal weakness or paresthesias, dizziness, unsteady gait, seizure, mental status changes, bladder or bowel incontinence PSYCHIATRIC: Absent: anxiety, depression, suicidal or homicidal ideation, hallucinations. PHYSICAL EXAMINATION Vital Signs - 24 hr 11/07/19 20:56 Temperature 98.0 F Pulse Rate 91 H Respiratory 20 Rate Blood Pressure 163/65 O2 Sat by Pulse 98 Oximetry (%) GENERAL: Awake, alert and oriented to person and time. Not in acute distress HEAD: Normal with no signs of trauma. EYES: Wearing glasses. EOMI. EARS, NOSE, THROAT: Moist mucous membranes. LUNGS: Expiratory wheezes Left lower lobe. No crackles. HEART: Regular rate and rhythm, normal S1 and S2 without murmur, rub or gallop. ABDOMEN: Soft, nontender, not distended, normoactive bowel sounds, no guarding, no rebound, no masses. MUSCULOSKELETAL: Normal range of motion at all joints. No bony deformities or tenderness. No CVA tenderness. LOWER EXTREMITIES: 2+ pulses, warm, well-perfused. No calf tenderness. +1 pitting edema b/l legs. NEUROLOGICAL: Cranial nerves II-XII intact. Normal speech. Normal gait. PSYCHIATRIC: Cooperative. Good eye contact. Appropriate mood and affect. SKIN: Warm, dry, normal turgor, no rashes or lesions noted, normal capillary refill. Laboratory Results - last 24 hr 11/07/19 22:45 WBC 14.2 H RBC 4.01 Hgb 11.5 Hct 34.9 MCV 87.1 MCH 28.7 MCHC 33.0 RDW 14.9 Plt Count 225 MPV 8.1 ASSESSMENT/PLAN: 84F PMH dementia, HTN, HLD who presents today with a cough that has persisted for the past 2 months. 1)Chronic persistent cough - Possibly related to lisinopril vs asthma vs GERD - Patient has had cough for the past 8 weeks - Worse at night, when sleeping. - Continue to monitor WBC, elevated now. - Reconcile medications, D/C lisinopril and losartan if still taking - Continue Duonebs, solumedrol 40 Q8H, singular 10 mg HS, symbicort - PFT as outpatient - HOB elevated 30 degrees - Will pursue GERD treatment if cough is not related to medication use and is not asthma. - F/U repeat X-Ray in AM - Pulmonology consult- Dr. Seth 2) Pitting Edema - PAF can present with chronic persistent cough - Cardiac monitoring overnight to rule out arrhythmias. - Echo in AM to rule out structural causes of heart failure 3) Hx of HTN - D/C ACEI/ARB - HCTZ 12.5 - Hydralazine 25 mg TID 4) Hx HLD - Continue Crestor 10 mg PO HS 5) Hx of Dementia - Continue Donepezil 5 mg Daily DVT: Heparin SQ TID F: Oral hydration E: Monitor BMP N: Sodium controlled diet Dispo: Telemetry monitoring Visit type - Emergency Visit Emergency Visit: Yes ED Registration Date: 11/07/19 Care time: The patient presented to the Emergency Department on the above date and was hospitalized for further evaluation of their emergent condition. - New Patient This patient is new to me today: Yes Date on this admission: 11/07/19 - Critical Care Critical Care patient: No ATTENDING PHYSICIAN STATEMENT I saw and evaluated the patient. I reviewed the resident's note and discussed the case with the resident. I agree with the resident's findings and plan as documented. SUBJECTIVE: OBJECTIVE: ASSESSMENT AND PLAN:
[2019-11-08 00:56] LABS: BLOOD UREA NITROGEN 21.1 mg/dL (7-18); CALCIUM 9.2 mg/dL (8.5-10.1); CREATININE 1.1 mg/dL (0.55-1.3); POTASSIUM 4.8 mmol/L (3.5-5.1)
[2019-11-08] MEDS ORDERED: ALBUTEROL SO4 0.083% IH SOL 2.5 MG/3 ML VIAL.NEB. NEB PRN (03:13)
[2019-11-08] MEDS ORDERED: ALBUTEROL SO4 2.5/IPRATROPIUM 0.5 INH SOL 3 ML VIAL.NEB. NEB ONE ×3 (03:50→12:17)
[2019-11-08] MEDS: ALBUTEROL SO4 2.5/IPRATROPIUM 0.5 INH SOL 3 ML VIAL.NEB. NEB SCH ×3 (04:00→12:20)
[2019-11-08 05:33] LABS: BASO % 0.3 % (0-2.0); EOS % 0.1 % (0-4.5); HEMATOCRIT 35.6 % (32.4-45.2); HEMOGLOBIN 11.8 GM/dL (10.7-15.3); LYMPH % 5.4 % (8-40); MCH 28.7 pg (25.7-33.7); MCHC 33.1 g/dl (32.0-36.0); MEAN CELL VOLUME 86.7 fl (80-96); MEAN PLT VOLUME 8.1 fl (7.5-11.1); MONO % 0.3 % (3.8-10.2); NEUT % 93.9 % (42.8-82.8); PLATELET COUNT 229 K/MM3 (134-434); RBC 4.11 M/mm3 (3.60-5.2); RDW 14.7 % (11.6-15.6); WHITE BLOOD COUNT 12.7 K/mm3 (4.0-10.0)
[2019-11-08 06:27] LABS: ALBUMIN 3.8 g/dl (3.4-5.0); BILIRUBIN,TOTAL 0.4 mg/dL (0.2-1); BLOOD UREA NITROGEN 20.4 mg/dL (7-18); CALCIUM 9.3 mg/dL (8.5-10.1); CREATININE 1.4 mg/dL (0.55-1.3); POTASSIUM 4.9 mmol/L (3.5-5.1); TOT PROT 7.2 g/dl (6.4-8.2)
[2019-11-08] MEDS ORDERED: HEPARIN NA (PORCINE) 5,000 UNITS/ML 1ML VIAL ONE (06:35)
[2019-11-08] MEDS ORDERED: hydrALAZINE HCL 25 MG TABLET (FP) ONE (06:35)
[2019-11-08] MEDS: hydrALAZINE HCL 25 MG TABLET (FP) PO SCH ×3 (06:55→22:09)
[2019-11-08] MEDS: HEPARIN NA (PORCINE) 5,000 UNITS/ML 1ML VIAL SQ SCH ×3 (06:55→22:09)
--- NOTE | 2019-11-08 09:53 | PN ---
Progress Note (short form) - Note Progress Note: ASSESSMENT/PLAN: 84F PMH dementia, HTN, HLD admitted today with a cough 1)Chronic persistent cough - Continue to monitor WBC, elevated now. - Continue Duonebs, solumedrol 40 Q8H, singular 10 mg HS, symbicort - HOB elevated 30 degrees - F/U repeat X-Ray in AM - Pulmonology consult- Dr. Seth 2) Pitting Edema - Cardiac monitoring - Echo to rule out structural causes of heart failure 3) Hx of HTN - D/C ACEI/ARB - HCTZ 12.5 - Hydralazine 25 mg TID 4) Hx HLD - Continue Crestor 10 mg PO HS 5) Hx of Dementia - Continue Donepezil 5 mg Daily DVT: Heparin SQ TID F: Oral hydration E: Monitor BMP N: Sodium controlled diet Dispo: Telemetry monitoring Visit type - Emergency Visit Emergency Visit: Yes ED Registration Date: 11/07/19 Care time: The patient presented to the Emergency Department on the above date and was hospitalized for further evaluation of their emergent condition. - New Patient This patient is new to me today: Yes Date on this admission: 12/01/19 - Critical Care Critical Care patient: No
[2019-11-08] MEDS ORDERED: methylPREDNISolone NA SUCC 40 MG/1 ML VIAL IVPUSH SCH (10:00)
[2019-11-08] MEDS: DONEPEZIL HCL 5 MG TABLET (FP) PO SCH (11:00)
[2019-11-08] MEDS: HYDROCHLOROTHIAZIDE 12.5 MG CAPSULE (FP) PO SCH (11:00)
[2019-11-08] MEDS: ASPIRIN 81 MG CHEWABLE TABLETS PO SCH (11:00)
[2019-11-08] MEDS ORDERED: methylPREDNISolone NA SUCC 40 MG/1 ML VIAL ONE (11:17)
[2019-11-08] MEDS: BUDESONIDE/FORMETEROL FUMARATE 80/4.5 mcg INHALER IH SCH ×2 (11:38→23:18)
--- NOTE | 2019-11-08 11:53 | EKG ---
Test Reason : Blood Pressure : / mmHG Vent. Rate : 090 BPM Atrial Rate : 090 BPM P-R Int : 136 ms QRS Dur : 074 ms QT Int : 362 ms P-R-T Axes : 054 -05 024 degrees QTc Int : 442 ms POOR DATA QUALITY, INTERPRETATION MAY BE ADVERSELY AFFECTED NORMAL SINUS RHYTHM MODERATE VOLTAGE CRITERIA FOR LVH, MAY BE NORMAL VARIANT INFERIOR INFARCT (CITED ON OR BEFORE 17-MAY-2017) ABNORMAL ECG WHEN COMPARED WITH ECG OF 05-NOV-2019 18:05, NO SIGNIFICANT CHANGE WAS FOUND Confirmed by ELIZABETH MCKNIGHT MD ([id number]) on 11/08/2019 11:52:51 AM Referred By: Confirmed By:ELIZABETH MCKNIGHT MD
[2019-11-08 12:24] LABS: ANISOCYTOSIS 2+; MACROCYTOSIS 0; OVALOCYTE 1+; PLATELET ESTIMATE NORMAL; TARGET CELLS 1+
--- NOTE | 2019-11-08 12:46 | ECHO ---
Name: HUGO CHIO Exam:Adult Echocardiogram Study Date: 11/08/2019 09:49 AM Age: 84 yrs Reason For Study: edema and onset of persistent cough Height: 65 in Weight: 180 lb BSA: 1.9 m2 MMode/2D Measurements & Calculations IVSd: 1.1 cm Ao root diam: 2.5 cm LVIDd: 3.7 cm LA dimension: 3.0 cm LVIDs: 2.4 cm LVPWd: 0.99 cm LVPWs: 1.5 cm EDV(Teich): 59.0 ml ESV(Teich): 19.8 ml LVOT diam: 1.9 cm RV S Carlo: 26.6 cm/sec Doppler Measurements & Calculations MV E max carlo: 64.4 cm/sec Ao V2 max: 114.9 cm/sec MV A max carlo: 117.9 cm/sec Ao max P.3 mmHg MV E/A: 0.55 MV dec time: 0.04 sec GRACIELA(V,D): 3.3 cm2 LV V1 max P.7 mmHg PA V2 max: 113.9 cm/sec LV V1 max: 129.0 cm/sec PA max P.2 mmHg Med Peak E' Carlo: 7.0 cm/sec Med E/e': 9.2 Lat Peak E' Carlo: 7.1 cm/sec Lat E/e': 9.0 Procedure A complete two-dimensional transthoracic echocardiogram was performed (2D, M-mode, Doppler and color flow Doppler). Left Ventricle The left ventricular size, thickness and function are normal. The left ventricular ejection fraction is normal. Ejection Fraction = 65-70%. The left ventricular wall motion is normal. Right Ventricle The right ventricle is normal in size and function. Atria Normal left and right atrial size and function. Mitral Valve There is no mitral regurgitation noted. Tricuspid Valve There is trace tricuspid regurgitation. There was insufficient TR detected to calculate RV systolic p ressure. Aortic Valve The aortic valve is trileaflet. No hemodynamically significant valvular aortic stenosis. No aortic regurgitation is present. Pulmonic Valve There is no pulmonic valvular regurgitation. Great Vessels The aortic root is normal size. Pericardium/Pleura There is no pericardial effusion. Interpretation Summary The left ventricular size, thickness and function are normal The right ventricle is normal in size and function. There is trace tricuspid regurgitation. MD Momo Vazquez 11/08/2019 12:46 PM
[2019-11-08 12:52] LABS: ANISOCYTOSIS 0; MACROCYTOSIS 0; PLATELET ESTIMATE NORMAL
--- NOTE | 2019-11-08 14:11 | CON.PULM ---
Consult Consult Specialty:: PULMONARY Referred by:: JESSICA Herrera Reason for Consultation:: cough - History of Present Illness Chief Complaint: cough History of Present Illness: 84yo female with h/oHTN, hyperlipidemia, dementia who was admitted with a worsening cough for the past few months. Denies chest pain or palpitations. No shortness of breath but with occasional wheezing. Cough is nonproductive and worse at night when she is lying down. She denies history of asthma or COPD. She is a never smoker. - History Source History Provided By: Patient, Medical Record Limitations to Obtaining History: No Limitations - Past Medical History Cardio/Vascular: Yes: HTN, Hyperlipdemia - Alcohol/Substance Use Hx Alcohol Use: No - Smoking History Smoking history: Never smoked Have you smoked in the past 12 months: No Aproximately how many cigarettes per day: 0 Home Medications - Allergies Allergies/Adverse Reactions: Allergies Allergy/AdvReac Type Severity Reaction Status Date / Time Penicillins Allergy Mild Hives Verified 11/07/19 21:00 - Home Medications Home Medications: Ambulatory Orders Amlodipine Besylate [Norvasc -] 5 mg PO DAILY 10/09/18 Aspirin 81 mg PO DAILY 10/09/18 Acetaminophen [Tylenol] 650 mg PO Q6H #30 capsule 07/01/19 Donepezil HCl [Aricept -] 5 mg PO DAILY 10/11/19 Lisinopril 5 mg PO DAILY 10/11/19 Rosuvastatin [Crestor -] 10 mg PO DAILY 10/11/19 Albuterol Sulfate [Proair Hfa] 8.5 gm IH PRN PRN #1 inhaler 10/26/19 Amlodipine Besylate 5 mg PO DAILY 10/26/19 Losartan Potassium 50 mg PO DAILY 10/26/19 Pantoprazole Sodium 40 mg PO DAILY 10/26/19 Albuterol Sulfate [Proair Hfa] 1 puff IN ASDIR #1 hfa.aer.ad 11/05/19 Cimetidine [Tagamet Hb] 200 mg PO HS #30 tablet 11/05/19 Review of Systems - Review of Systems Constitutional: denies: Chills, Fever, Weakness Eyes: denies: Recent Change in Vision HENT: denies: Nasal Congestion, Throat Pain Neck: denies: Stiffness, Tenderness Cardiovascular: denies: Chest Pain, Edema, Shortness of Breath Respiratory: reports: Cough, Wheezing. denies: Hemoptysis Gastrointestinal: denies: Abdominal Pain, Nausea, Vomiting Genitourinary: denies: Dysuria, Hematuria Neurological: denies: Dizziness, Headache Endocrine: denies: Unexplained Weight Loss Physical Exam Vital Sings: Vital Signs Temperature 98.0 F 11/07/19 20:56 Pulse Rate 92 H 11/08/19 11:00 Respiratory Rate 20 11/08/19 11:00 Blood Pressure 140/65 11/08/19 11:00 O2 Sat by Pulse Oximetry (%) 95 11/08/19 11:00 Constitutional: Yes: Calm Eyes: Yes: Conjunctiva Clear, EOM Intact HENT: Yes: Atraumatic, Normocephalic Neck: Yes: Supple, Trachea Midline Cardiovascular: Yes: Regular Rate and Rhythm Respiratory: Yes: CTA Bilaterally ...Clubbing: No Gastrointestinal: Yes: Normal Bowel Sounds, Soft. No: Tenderness Edema: No Neurological: Yes: Alert, Oriented Labs: CBC, BMP 11/08/19 05:18 11/08/19 05:18 Imaging - Results Chest X-ray: Report Reviewed, Image Reviewed (no infiltrates) Problem List - Problems (1) Cough Code(s): R05 - COUGH Assessment/Plan Cough HTN Hyperlipidemia Dementia - cough may be from MAGDY-I vs post nasal gtt vs GERD - may be from cough variant asthma but doubtful if no prior presentations of asthma at her age - can trial intranasal steroids, antacids - inhaled bronchodilators - d/c MAGDY-I/ARBs - can defer systemic steroids at this time - outpt PFTs - DVT prophylaxis Thank you for this consult Helder Higgins MD
[2019-11-08] MEDS ORDERED: FAMOTIDINE 20 MG/50 ML IVPB 20 MG/50 ML MG IVPB SCH (14:45)
[2019-11-08 15:07] VITALS: BMI 32.1
[2019-11-08] MEDS ORDERED: PNEUMOC 13-VAL CONJ-DIP CRM/PF 0.5 ML DISP.SYRIN IM ONE (16:00)
[2019-11-08] MEDS ORDERED: FLU VACCINE QUAD 60 MCG/0.5 ML (MDV 19-20) IM ONE (16:00)
[2019-11-08] MEDS ORDERED: ROSUVASTATIN CA 10 MG TABLET (FP) PO SCH (22:00)
[2019-11-08] MEDS ORDERED: MONTELUKAST NA 10 MG TABLET PO SCH (22:00)
[2019-11-08] MEDS ORDERED: PT OWN MED DRAWER 7, Y5N ONE (22:26)
[2019-11-08] MEDS: FLUTICASONE PROP 0.05% 16 GM NASAL SPRAY NS SCH (23:18)
[2019-11-09] MEDS: ALBUTEROL SO4 2.5/IPRATROPIUM 0.5 INH SOL 3 ML VIAL.NEB. NEB SCH ×2 (00:07→07:42)
[2019-11-09] MEDS: HEPARIN NA (PORCINE) 5,000 UNITS/ML 1ML VIAL SQ SCH (06:05)
[2019-11-09] MEDS: hydrALAZINE HCL 25 MG TABLET (FP) PO SCH (06:05)
[2019-11-09] MEDS: ASPIRIN 81 MG CHEWABLE TABLETS PO SCH (09:11)
[2019-11-09] MEDS: DONEPEZIL HCL 5 MG TABLET (FP) PO SCH (09:11)
[2019-11-09] MEDS: HYDROCHLOROTHIAZIDE 12.5 MG CAPSULE (FP) PO SCH (09:11)
[2019-11-09] MEDS: BUDESONIDE/FORMETEROL FUMARATE 80/4.5 mcg INHALER IH SCH (09:12)
[2019-11-09] MEDS: FLUTICASONE PROP 0.05% 16 GM NASAL SPRAY NS SCH (09:12)
--- NOTE | 2019-11-09 09:52 | DS ---
Physical Exam: SUBJECTIVE: Patient seen and examined. ambulating around room, feels well. denies any shorteness of breath or chest pain. wants to go home. OBJECTIVE: 84F PMH dementia, HTN, HLD who presents to ED with a cough that has persisted for the past 2 months. The cough occurs more frequently at night when she is lying down or sleeping. She describes nighttime awakenings with coughing fits. She has newly developed productive cough- she describes coughing up white to clear sputum which started 2 days ago. She has seen her PMD for workup as well multiple visits to the ED. She has recently been started on albuterol inhaler at home and cimetidine. She was told to discontinue her lisinopril in the past, however she has continued it. She requires 2 pillows to sleep at night, but denies any shortness of breath. She denies any fevers, chills, dysphagia, heartburn, chest pain, abdominal pain, nausea, vomiting, and diarrhea. Ambulating around room, stable oxygen on room air. Denies any further coughing, slept well. no chest pain. Vital Signs Period Temp Pulse Resp BP Sys/Pablo Pulse Ox Last 24 Hr 97.0 F-98.4 F 77-115 20-20 133-156/65-90 95-98 PHYSICAL EXAM GENERAL: The patient is awake, alert, in no acute distress. HEAD: Normal with no signs of trauma. EYES: PERRL, extraocular movements intact, sclera anicteric, conjunctiva clear. ENT: Ears normal, nares patent, oropharynx clear without exudates, moist mucous membranes. NECK: Trachea midline, full range of motion, supple. LUNGS: Breath sounds equal, clear to auscultation bilaterally, no wheezes HEART: Regular rate and rhythm, S1, S2 without murmur, rub or gallop. ABDOMEN: Soft, nontender, nondistended, normoactive bowel sounds, no guarding, no rebound, no hepatosplenomegaly, no masses. EXTREMITIES: 2+ pulses, warm, well-perfused, no edema. NEUROLOGICAL: Cranial nerves II through XII grossly intact. Normal speech, gait not observed. PSYCH: Normal mood, normal affect. SKIN: Warm, dry, normal turgor, no rashes or lesions noted. LABS Laboratory Results - last 24 hr 11/07/19 11/08/19 22:45 05:18 WBC 12.7 H RBC 4.11 Hgb 11.8 Hct 35.6 MCV 86.7 MCH 28.7 MCHC 33.1 RDW 14.7 Plt Count 229 MPV 8.1 Absolute Neuts (auto) 12.0 H Neutrophils % 93.9 H D Neutrophils % (Manual) 73.2 92.0 H Band Neutrophils % 0.0 2.0 Lymphocytes % 5.4 L D Lymphocytes % (Manual) 12.4 3.0 L D Monocytes % 0.3 L D Monocytes % (Manual) 9 0 L D Eosinophils % 0.1 D Eosinophils % (Manual) 1.0 1.0 Basophils % 0.3 Basophils % (Manual) 2.0 0.0 Myelocytes % (Man) 0 0 Promyelocytes % (Man) 0 0 Blast Cells % (Manual) 0 0 Nucleated RBC % 0 0 Metamyelocytes 0 0 Hypochromia 0 0 Platelet Estimate Normal Normal Platelet Comment Present Polychromasia 0 0 Poikilocytosis 0 1+ Anisocytosis 0 2+ Microcytosis 0 1+ Macrocytosis 0 0 Target Cells 1+ Ovalocytes 1+ Willy Cells 1+ HOSPITAL COURSE: Date of Admission:11/07/19 Date of Discharge: 11/09/19 Minutes to complete discharge: 45 Discharge Summary Problems reviewed: Yes Reason For Visit: ACUTE BRONCHOSPASM Current Active Problems Acute bronchospasm (Acute) Cough (Acute) Condition: Guarded - Instructions Diet, Activity, Other Instructions: Mrs Hendricks: You were observed at [facility] for a chronic cough and have been evaluated by a burr mill operator. Here are our recommendations: Cough Your cough may be from your Lisinopril or post nasal, can also be a condition call GERD Therefore Stop taking Lisinopril and Losartan, we have replaced it with Norvasc 10mg (Amlodopine) once per day for BP control Continue the Inhaled steriods (Flonase) Continue the Pepcid Please follow up with the burr mill operator by calling their office to make an appointment. Please note that your blood pressure medications have been changed. Hydralazine 12.5mg once per day, Norvasc 10mg once per day. Please follow up with your primary care doctor for blood pressure check as these medications may need to be adjusted going forward. Thank you for allowing us to care for you. Referrals: Lisa Morel NP [Primary Care Provider] - Helder Higgins MD, MD [Staff Physician] - Disposition: HOME - Home Medications Comprehensive Discharge Medication List: Ambulatory Orders Aspirin 81 mg PO DAILY 10/09/18 Donepezil HCl [Aricept -] 5 mg PO DAILY 10/11/19 Rosuvastatin [Crestor -] 10 mg PO DAILY 10/11/19 Albuterol Sulfate [Proair Hfa] 8.5 gm IH PRN PRN #1 inhaler 10/26/19 Amlodipine Besylate [Norvasc -] 10 mg PO DAILY #30 tablet 11/09/19 Budesonide/Formeterol Fumarate [SYMBICORT 80/4.5mcg -] 2 puff IH BID #1 inhaler 11/09/19 Famotidine [Pepcid] 20 mg PO BID #60 tablet 11/09/19 Fluticasone Prop 0.05% Nasal [Flonase -] 2 spray NS BID #1 spray 11/09/19 Hydrochlorothiazide [Hctz -] 12.5 mg PO DAILY #60 cap 11/09/19 Montelukast Na [Singulair -] 10 mg PO HS #60 tablet 11/09/19 This patient is new to me today: Yes Date on this admission: 11/17/19 Emergency Visit: Yes ED Registration Date: 11/07/19 Care time: The patient presented to the Emergency Department on the above date and was hospitalized for further evaluation of their emergent condition. Critical Care patient: No - Discharge Referral Referred to [facility] Med [facility].C.: No
[2019-11-09] MEDS ORDERED: amLODIPine BESYLATE 5 MG TABLET (FP) PO SCH (10:00)
[2019-11-09] MEDS ORDERED: amLODIPine BESYLATE 10 MG TABLET (FP) PO SCH (10:00)
[2019-11-09 10:26] VITALS: BP 140/64; PULSE 100; TEMP 98.1
== END 2019-11-09 11:00 | disposition home or self-care (01) | DRG 392 ==
LOC: JER 20:55 → JERBED 23:29 → J4W 11-08 14:41
PROVIDERS: ADMIT Internal Medicine; ATTEND Nurse Practitioner Family
DX: K21.9 Gastro-esophageal reflux disease without esophagitis (principal); J98.01 Acute bronchospasm; F03.90 Unspecified dementia, unspecified severity, without behavioral disturbance, psychotic disturbance, mood disturbance, and anxiety; I10 Essential (primary) hypertension; E78.5 Hyperlipidemia, unspecified; R60.9 Edema, unspecified; Z96.651 Presence of right artificial knee joint; E66.9 Obesity, unspecified; Z68.32 Body mass index [BMI] 32.0-32.9, adult
CPT/HCPCS: 36415; 71045-TC-FY; 80048; 80053; 84484; 85025; 85027; 90670; 93005; 93010; 93306-TC; 94640; 99285-25; G0008; J1644; Q2036

== ENCOUNTER 2020-04-08 15:57 | Emergency (ER) | payer OTHER ==
--- NOTE | 2020-04-08 16:25 | PDOC ---
Rapid Medical Evaluation Time Seen by Provider: 04/08/20 16:16 Medical Evaluation: Allergies Allergy/AdvReac Type Severity Reaction Status Date / Time Penicillins Allergy Mild Hives Verified 12/21/19 17:03 04/08/20 16:19 Pt presents for evaluation of a cough. States the cough has been persistent for months. Denies known COVID exposure. Pt endorses still taking lisinopril. Exam: lungs CTAB Orders: CXR Pt to proceed to the ER for further evaluation
[2020-04-08 16:27] VITALS: BP 135/57; PULSE 81; TEMP 98.3; BMI 26.6
--- NOTE | 2020-04-08 17:13 | PDOC ---
History of Present Illness - General Chief Complaint: Cold Symptoms Stated Complaint: COUGHING Time Seen by Provider: 04/08/20 16:16 History Source: Patient, Old Records Exam Limitations: No Limitations - History of Present Illness Initial Comments: 04/08/20 17:06 HISTORY OF PRESENT ILLNESS: 84-year-old woman who presents emergency department for evaluation of cough. Patient reports the cough is worse at night when she lays down. Due to patient's dementia she is an unreliable source. Patient does endorse eating salad with vinegar last night and had a coughing fit when she lay down to go to sleep. She reported the cough improved when she sat up in the middle the night. Patient reports she has seen her primary doctor and was given a prescription for cough syrup which she reports intermittently effective. No recent travel or sick contacts. PAST MEDICAL HISTORY: Denies past medical history SURGICAL HISTORY: Denies ALLERGIES: Penicillin REVIEW OF SYSTEMS General/Constitutional: Denies fever or chills. Denies weakness, weight change. HEENT: Denies change in vision. Denies ear pain or discharge. Denies sore throat. Cardiovascular: Denies chest pain or shortness of breath. Respiratory: Denies cough, wheezing, or hemoptysis. Gastrointestinal: Denies nausea, vomiting, diarrhea or constipation. Denies rectal bleeding. Genitourinary: Denies dysuria, frequency, or change in urination. Musculoskeletal: Denies joint or muscle swelling or pain. Denies neck or back pain. Skin and breasts: Denies rash or easy bruising. Neurologic: Denies headache, vertigo, loss of consciousness, or loss of sensation. Psychiatric: Denies depression or anxiety. Endocrine: Denies increased thirst. Denies abnormal weight change. Hematologic/Lymphatic: Denies anemia, easy bleeding, or history of blood clots. Allergic/Immunologic: Denies hives or skin allergy. Denies latex allergy. PHYSICAL EXAM General Appearance: Well-appearing, appropriately dressed. No apparent distress , no intoxication. HEENT: EOMI, PERRLA, normal ENT inspection, normal voice, TMs normal, pharynx normal. No conjunctival pallor. No photophobia, scleral icterus. Respiratory/Chest: Lungs CTAB. No shortness of breath, chest tenderness, respiratory distress, accessory muscle use. No crackles, rales, rhonchi, stridor, wheezing, dullness Cardiovascular: RRR. S1, S2. No JVD, murmur, bradycardia, tachycardia. Integumentary: Appropriate color, dry, warm. No cyanosis, erythema, jaundice or rash Past History - Medical History Allergies/Adverse Reactions: Allergies Allergy/AdvReac Type Severity Reaction Status Date / Time Penicillins Allergy Mild Hives Verified 12/21/19 17:03 Home Medications: Ambulatory Orders Aspirin 81 mg PO DAILY 10/09/18 Donepezil HCl [Aricept -] 5 mg PO DAILY 10/11/19 Rosuvastatin [Crestor -] 10 mg PO DAILY 10/11/19 Albuterol Sulfate [Proair Hfa] 8.5 gm IH PRN PRN #1 inhaler 10/26/19 Amlodipine Besylate [Norvasc -] 10 mg PO DAILY #30 tablet 11/09/19 Budesonide/Formeterol Fumarate [SYMBICORT 80/4.5mcg -] 2 puff IH BID #1 inhaler 11/09/19 Famotidine [Pepcid] 20 mg PO BID #60 tablet 11/09/19 Fluticasone Prop 0.05% Nasal [Flonase -] 2 spray NS BID #1 spray 11/09/19 Hydrochlorothiazide [Hctz -] 12.5 mg PO DAILY #60 cap 11/09/19 Montelukast Na [Singulair -] 10 mg PO HS #60 tablet 11/09/19 Benzonatate [Tessalon Pearls -] 100 mg PO TID #21 capsule 12/21/19 Anemia: No Asthma: No Cancer: No Cardiac Disorders: No CVA: No COPD: No CHF: No Dementia: No Diabetes: No GI Disorders: Yes (TUBULAR ADENOMA) Disorders: No HTN: Yes Hypercholesterolemia: No Liver Disease: No Seizures: No Thyroid Disease: No - Surgical History Abdominal Surgery: Yes Appendectomy: No Cardiac Surgery: No Cholecystectomy: No Lung Surgery: No Neurologic Surgery: No Orthopedic Surgery: Yes (RIGHT KNEE REPLACEMENT) - Immunization History Immunization Up to Date: Yes (flu 2 wks ago) - Psycho-Social/Smoking History Smoking Status: No Smoking History: Never smoked Have you smoked in the past 12 months: No Number of Cigarettes Smoked Daily: 0 - Substance Abuse Hx (Audit-C & DAST Scrn) How often the patient has a drink containing alcohol: Never Score: In Men: 4 or > Positive; In Women: 3 or > Positive: 0 Screen Result (Pos requires Nsg. Audit-10AR): Negative *Physical Exam - Vital Signs Last Vital Signs Temp Pulse Resp BP Pulse Ox 98.3 F 81 20 135/57 L 100 04/08/20 16:16 04/08/20 16:16 04/08/20 16:16 04/08/20 16:16 04/08/20 16:16 Medical Decision Making - Medical Decision Making 04/08/20 17:10 A/P: 84-year-old woman with intermittent cough which worsens with lying down and even worse after eating spicy foods Lungs clear to auscultation bilaterally Patient's PMD has been contacted who states she can follow-up tomorrow if patient has a normal chest x-ray. Chest x-ray is read by me: Ivte perez. Cardiac silhouette is within normal limits. Lung oseguera without consolidations or infiltrates present. Discharge home follow-up with PMD I discussed the physical exam findings, ancillary test results and final diagnoses with the patient. I answered all of the patient's questions. The reilly ent was satisfied with the care received and felt comfortable with the discharge plan and treatment plan. The patient will call their primary care physician within 24 hours to arrange follow-up and will return to the Emergency Department with any new, persistent or worsening symptoms. Portions of this note have been documented using voice recognition software. As a result, errors may occur in the oracle sql developer process. Effort has been made to correct all grammatical and oracle sql developer error, but some may have been missed which may produce sporadic inaccurate oracle sql developer or nonsensical phrases. Discharge - Discharge Information Problems reviewed: Yes Clinical Impression/Diagnosis: Cough Condition: Stable Disposition: HOME - Admission No - Follow up/Referral Referrals: Lisa Morel NP [Primary Care Provider] - - Patient Discharge Instructions Additional Instructions: Your coughing is likely due to some acid reflux. Eat foods that are low in acidity and without a lot of spice. It is important that you call your primary doctor tomorrow for repeat evaluation. Return to the emergency department for any new or worsening symptoms. Thank you very much for choosing us to provide your emergent healthcare needs - Post Discharge Activity
== END 2020-04-08 17:22 | disposition home or self-care (01) ==
LOC: JER 15:57 → JERFT 15:57
DX: R05 Cough (principal)
CPT/HCPCS: 71046-TC-FY; 99283-25

== ENCOUNTER 2020-04-09 15:46 | Emergency (ER) | payer OTHER ==
--- NOTE | 2020-04-09 15:52 | PDOC ---
Rapid Medical Evaluation Time Seen by Provider: 04/09/20 15:49 Medical Evaluation: Allergies Allergy/AdvReac Type Severity Reaction Status Date / Time Penicillins Allergy Mild Hives Verified 12/21/19 17:03 04/09/20 15:49 Pt with PMH of dementia presents to the ER for feeling weak. States that she generally does not feel well. Denies fevers, chills, vomiting, dsyuria, chest pain and difficulty breathing Exam: crying, no respiratory distress, Orders: labs, EKG Pt to proceed to the ER for further evaluation Discharge Disposition - Diagnosis Weakness - Referrals - Patient Instructions - Post Discharge Activity
[2020-04-09] MEDS ORDERED: SODIUM CHLORIDE 1,000 ML IV STA (15:53)
[2020-04-09 16:39] LABS: BASO % 0.3 % (0-2.0); EOS % 3.6 % (0-4.5); HEMATOCRIT 39.4 % (32.4-45.2); LYMPH % 16.6 % (8-40); MCH 28.4 pg (25.7-33.7); MCHC 32.9 g/dl (32.0-36.0); MEAN CELL VOLUME 86.3 fl (80-96); MEAN PLT VOLUME 8.3 fl (7.5-11.1); MONO % 5.7 % (3.8-10.2); NEUT % 73.8 % (42.8-82.8); PLATELET COUNT 244 K/MM3 (134-434); RBC 4.57 M/mm3 (3.60-5.2); RDW 13.9 % (11.6-15.6); WHITE BLOOD COUNT 9.9 K/mm3 (4.0-10.0)
[2020-04-09 16:53] LABS: PROTHROMBIN TIME (PATIENT) 11.8 SEC (9.7-13.0)
[2020-04-09 17:09] LABS: ALK PHOS 83 U/L (45-117); ANION GAP 10 MMOL/L (8-16); BILIRUBIN,TOTAL 0.6 mg/dL (0.2-1); CALCIUM 9.4 mg/dL (8.5-10.1); CHLORIDE 105 mmol/L (98-107); CO2 24 mmol/L (21-32); CREATININE 1.1 mg/dL (0.55-1.3); GLUCOSE,RANDOM 145 mg/dL (74-106); MAGNESIUM 2.3 mg/dL (1.8-2.4); POTASSIUM 3.8 mmol/L (3.5-5.1); SGOT/AST 18 U/L (15-37); SGPT/ALT 25 U/L (13-61); SODIUM 139 mmol/L (136-145); TOT PROT 7.6 g/dl (6.4-8.2)
[2020-04-09] MEDS ORDERED: methylPREDNISolone NA SUCC 125 MG/2 ML VIAL IVPB ONE (17:30)
[2020-04-09] MEDS ORDERED: FAMOTIDINE 20 MG/50 ML IVPB 20 MG/50 ML MG IVPB ONE ×2 (17:31→18:12)
--- NOTE | 2020-04-09 17:37 | PDOC ---
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 Pt is very poor historian due to dementia, so most of history was given by . says that since last night she has had upper lip swelling that has been getting worse. denies that pt has tried any new food, any new drugs, any new lotions, or any new soaps. Pt doctor was also called to see if any new drugs were given and they denied any new drugs were given to pt. Pt is on lisinopril but for years. Pt denies any sob, swelling around neck or throat, pruritis, or any new rashes. PMH: HTN, HLD Meds: Lisinopril, losartan, rosuvastatin, amlodipine, aspirin, donepezil PSH: denies Allergies: penicillin (from chart pt denies) Social: denies smoking drugs and alcohol PCP: Dr. Morel 04/09/20 17:52 Past History - Medical History Allergies/Adverse Reactions: Allergies Allergy/AdvReac Type Severity Reaction Status Date / Time Penicillins Allergy Mild Hives Verified 04/09/20 15:52 Home Medications: Ambulatory Orders Aspirin 81 mg PO DAILY 10/09/18 Donepezil HCl [Aricept -] 5 mg PO HS 10/11/19 Rosuvastatin [Crestor -] 10 mg PO DAILY 10/11/19 Amlodipine Besylate [Norvasc -] 10 mg PO DAILY #30 tablet 11/09/19 Hydrochlorothiazide [Hctz -] 12.5 mg PO DAILY #60 cap 11/09/19 Hydrochlorothiazide [Hctz -] 12.5 mg PO DAILY 04/09/20 Anemia: No Asthma: No Cancer: No Cardiac Disorders: No CVA: No COPD: No CHF: No Dementia: No Diabetes: No GI Disorders: Yes (TUBULAR ADENOMA) Disorders: No HTN: Yes Hypercholesterolemia: No Liver Disease: No Seizures: No Thyroid Disease: No - Surgical History Abdominal Surgery: Yes Appendectomy: No Cardiac Surgery: No Cholecystectomy: No Lung Surgery: No Neurologic Surgery: No Orthopedic Surgery: Yes (RIGHT KNEE REPLACEMENT) - Immunization History Immunization Up to Date: Yes (flu 2 wks ago) - Psycho-Social/Smoking History Smoking Status: No Smoking History: Never smoked Have you smoked in the past 12 months: No Number of Cigarettes Smoked Daily: 0 - Substance Abuse Hx (Audit-C & DAST Scrn) How often the patient has a drink containing alcohol: Never Score: In Men: 4 or > Positive; In Women: 3 or > Positive: 0 Screen Result (Pos requires Nsg. Audit-10AR): Negative Review of Systems - Review of Systems Comments:: 04/09/20 17:59 Pt is very unreliable with ROS because of dementia and did not know why she was here. ROS from her was GENERAL/CONSTITUTIONAL: No fever or chills. No weakness. HEAD, EYES, EARS, NOSE AND THROAT: No change in vision. No ear pain or discharge. No sore throat. CARDIOVASCULAR: No chest pain or shortness of breath RESPIRATORY: No cough, wheezing, or hemoptysis. GASTROINTESTINAL: No nausea, vomiting, diarrhea or constipation. GENITOURINARY: No dysuria, frequency, or change in urination. MUSCULOSKELETAL: No joint or muscle swelling or pain. No neck or back pain. SKIN: No rash NEUROLOGIC: No headache, vertigo, loss of consciousness, or change in strength/sensation. ALLERGIC/IMMUNOLOGIC: Lip swelling. *Physical Exam - Vital Signs Last Vital Signs Temp Pulse Resp BP Pulse Ox 98.9 F 111 H 18 156/64 99 04/09/20 15:50 04/09/20 15:50 04/09/20 15:50 04/09/20 15:50 04/09/20 15:50 - Physical Exam 04/09/20 18:01 GENERAL: Awake, alert, and oriented to person and place but not time, in no acute distress HEAD: No signs of trauma, normocephalic, atraumatic EYES: PERRLA, EOMI, sclera anicteric, conjunctiva clear ENT: Auricles normal inspection, hearing grossly normal, nares patent, oropharynx clear without exudates. Moist mucosa. Malampati score of 1. Uvula midline. upper lip and lower lip swolen. Pt has numbness over upper lip. NECK: Normal ROM, supple, no lymphadenopathy, JVD, or masses. No stridor. LUNGS: No distress, speaks full sentences, clear to auscultation bilaterally . No wheezes, rales, rhochi, or stridor. HEART: Regular rate and rhythm, normal S1 and S2, no murmurs, rubs or gallops, peripheral pulses normal and equal bilaterally. ABDOMEN: Soft, nontender, normoactive bowel sounds. No guarding, no rebound. No masses EXTREMITIES : Normal inspection, Normal range of motion, no edema. No clubbing or cyanosis. NEUROLOGICAL: Cranial nerves II through XII grossly intact. Normal speech, normal gait, no focal sensorimotor deficits SKIN: Warm, Dry, normal turgor, no rashes, hives, urticaria, or lesions noted Heart Score/ECG Review - ECG Impressions Comment:: 04/09/20 18:21 Normal sinus rhythm at 72 bpm Normal LA, QRS, and QT intervals No ST changes or ischemic changes noted ED Treatment Course - LABORATORY CBC & Chemistry Diagram: 04/09/20 16:10 04/09/20 16:10 - ADDITIONAL ORDERS Additional order review: Laboratory Results 04/09/20 04/09/20 16:10 16:10 PT with INR 11.80 INR 1.00 Sodium 139 Potassium 3.8 Chloride 105 Carbon Dioxide 24 Anion Gap 10 BUN 25.0 H Creatinine 1.1 Est GFR (CKD-EPI)AfAm 54.15 Est GFR (CKD-EPI)NonAf 46.72 Random Glucose 145 H Calcium 9.4 Magnesium 2.3 Total Bilirubin 0.6 AST 18 ALT 25 Alkaline Phosphatase 83 Creatine Kinase 257 H Troponin I < 0.02 Total Protein 7.6 Albumin 4.0 04/09/20 16:10 RBC 4.57 MCV 86.3 MCHC 32.9 RDW 13.9 MPV 8.3 Neutrophils % 73.8 D Lymphocytes % 16.6 D Monocytes % 5.7 D Eosinophils % 3.6 D Basophils % 0.3 - Medications Given in the ED: ED Medications Discontinued Medications Generic Name Dose Route Start Last Admin Trade Name Freq PRN Reason Stop Dose Admin Sodium Chloride 1,000 mls @ 1,000 mls/hr 04/09/20 15:53 04/09/20 17:01 Normal Saline - IV 04/09/20 16:52 1,000 mls/hr ASDIR STA Administration Medical Decision Making - Medical Decision Making 04/09/20 17:56 Pt with pmh of HTN, HLD, 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 Pt has dementia so very unreliable history and history was got from and daughter. Pt will be admitted to obs for angioedema and given pepcid, epinephrine, benadryl, and methylprednisolone 04/09/20 18:46 Pt was microblogged and admitted to Dr. August. Pt still needs signout. 04/09/20 19:53 Pt still sitting comfortably but lip still swolen. NO airway compromise. Pt was signed out to admitting team. Discharge - Discharge Information Problems reviewed: Yes Clinical Impression/Diagnosis: Weakness, Angioedema Condition: Guarded - Admission Yes - Follow up/Referral - Patient Discharge Instructions - Post Discharge Activity
[2020-04-09] MEDS ORDERED: EPINEPHrine 1:1,000 0.3 MG/0.3 ML SYR IM ONE (17:42)
[2020-04-09] MEDS ORDERED: EPINEPHrine/PF 1 MG/1 ML (1:1,000) AMPULE ONE (18:11)
[2020-04-09] MEDS ORDERED: methylPREDNISolone NA SUCC 125 MG/2 ML VIAL ONE (18:12)
--- NOTE | 2020-04-09 18:45 | PDOC ---
Documentation entered by Hailey Hernandez SCRIBE, acting as scribe for Angelica Babb DO. Angelica Babb DO: This documentation has been prepared by the Mary reed Xhesika, SCRIBE, under my direction and personally reviewed by me in its entirety. I confirm that the documentation accurately reflects all work, treatment, procedures, and medical decision making performed by me. Attending Attestation - Resident Resident Name: Milton Serrano - ED Attending Attestation I have performed the following: I have examined & evaluated the patient, The case was reviewed & discussed with the resident, I agree w/resident's findings & plan, Exceptions are as noted - HPI HPI: 04/09/20 17:38 The patient is a 84Y/O F with a PMH of HTN, HLD, and dementia who presents to the ED with lip swelling since last night. states pt's lip has been getting worse since the onset of symptoms. denies that pt has tried any new food, any new drugs, any new lotions, or any new soaps. Pt denies any sob, chest pain, swelling around neck or throat, pruritis, or any new rashes. Allergies: penicillin PCP: Dr. Morel - Physicial Exam PE: 04/09/20 18:46 GENERAL: Awake, alert, and oriented to person and place. EYES: PERRLA, EOMI, sclera anicteric, conjunctiva clear ENT: Auricles normal inspection, nares patent, oropharynx clear without exudates. Moist mucosa. No swelling of tongue or oral oropharynx NECK: Normal ROM, supple, no lymphadenopathy, JVD, or masses LUNGS: Breath sounds equal, clear to auscultation bilaterally. no strider or wheezing HEART: Regular rate and rhythm, normal S1 and S2, no murmurs, rubs or gallops ABDOMEN: Soft, nontender, normoactive bowel sounds. No guarding, no rebound. No masses EXTREMITIES: Normal range of motion, no edema in the legs. No clubbing or cyanosis. No cords, erythema, or tenderness SKIN: Warm, Dry, normal turgor, no rashes, hives, lesions noted. - Medical Decision Making 04/09/20 18:42 a/p: 84yo female with lip swelling -on lisinopril -suspect secondary to MAGDY-i -will stop lisinopril -will need obs for lip swelling, no tongue, uvula, stridor or other signs of anaphylaxis -will send labs, pepcid, solumedrol, epi, benadryl -will monitor overnight as pt is demented and unable to describe why she is in the ER -resident discussed the case with her and physician 04/09/20 19:26 cxr clear labs reviewed and stable pending official read on soft tissue neck and cxr 04/09/20 19:26 [facility] Heart Score/ECG Review - ECG Intrepretation Comment:: 04/09/20 18:44 sinus at 72, nl axis, LVH, q wave inferior leads which are age indeterminate Discharge - Discharge Information Problems reviewed: Yes Clinical Impression/Diagnosis: Weakness, Angioedema Condition: Guarded - Admission Yes - Follow up/Referral - Patient Discharge Instructions - Post Discharge Activity
--- NOTE | 2020-04-09 20:10 | HP ---
CHIEF COMPLAINT: lip swelling PCP: Dr. Morel HISTORY OF PRESENT ILLNESS: Pt is an 84 yo F with PMH of HTN, HLD, dementia, and suprasellar meningioma presenting to the ED with lip swelling since last night. Pt and her provided history together due to some memory loss because of her dementia. They report swelling of the lips that was worse upon awakening this morning. This was associated with mild swelling and redness around the eyes, lip numbness, and a chronic dry cough (since October, but worse in the last week). Pt did not try any new foods, lotions, or soaps recently; also did not change her medication regimen recently (as per ED conversation with PCP). Pt has been on lisinopril for years. An episode similar to this has never occurred to her or any family members before. She denies SOB, neck swelling, dysphagia, rashes, pruritus, urticaria, sore throat, nasal congestion, rhinorrhea, eye discharged, increased lacrimation, nausea, vomiting, fevers, chills, diarrhea, constipation, or urinary changes. ER course was notable for: (1) Benadryl, Solumedrol, EpiPen, Pepcid, and IV NS given in ED for the pt. (2) CXR with no acute findings; Soft tissue Neck XR - within unexplained opacity Recent Travel: none; Sick Contacts: none PAST MEDICAL HISTORY: As per HPI. PAST SURGICAL HISTORY: none FAMILY HISTORY: none; no history of facial swelling in other family members Social History: Retired; lives in an apartment with her and 62 yo daughter. Ambulates well and is independent in most ADLs. Smoking: never Alcohol: never Drugs: never Allergies Pt denies any allergies; but documented penicillin allergy in chart: Penicillins Allergy (Mild, Verified 04/09/20 15:52) Hives HOME MEDICATIONS: Home Medications Medication Instructions Recorded Aspirin 81 mg PO DAILY 10/09/18 Donepezil HCl [Aricept -] 5 mg PO HS 10/11/19 Rosuvastatin [Crestor -] 10 mg PO DAILY 10/11/19 Amlodipine Besylate [Norvasc -] 10 mg PO DAILY #30 tablet 11/09/19 Hydrochlorothiazide [Hctz -] 12.5 mg PO DAILY #60 cap 11/09/19 Hydrochlorothiazide [Hctz -] 12.5 mg PO DAILY 04/09/20 REVIEW OF SYSTEMS As per HPI. PHYSICAL EXAMINATION Vital Signs - 24 hr 04/09/20 15:50 Temperature 98.9 F Pulse Rate 111 H Respiratory 18 Rate Blood Pressure 156/64 O2 Sat by Pulse 99 Oximetry (%) GENERAL: AOx3, in no acute distress. Resting comfortably. No stridor. HEAD: NCAT; some residual numbness and swelling of the upper and lower lips but much improved from how it was upon arrival to ED EYES: PERRLA, EOMI, arcus senilis appreciated; sclera white, conjunctiva clear; fundoscopy - red reflex appreciated with nl fundi b/l EARS, NOSE, THROAT: Nares patent, oropharynx clear without exudates. Moist mucous membranes. NECK: No swelling, supple without lymphadenopathy LUNGS: Breath sounds equal, clear to auscultation bilaterally. No wheezes, and no crackles. No accessory muscle use. HEART: Regular rate and rhythm, normal S1 and S2 without murmur, rub or gallop. ABDOMEN: Soft, nontender, not distended, +BS in all 4 quadrants. MUSCULOSKELETAL: Moving all extremities spontaneously and equally. UPPER EXTREMITIES: 2+ pulses, warm, well-perfused. No peripheral edema. LOWER EXTREMITIES: 2+ pulses, warm, well-perfused. No peripheral edema. NEUROLOGICAL: Cranial nerves II-XII intact. Normal speech. PSYCHIATRIC: Cooperative. Good eye contact. . SKIN: Warm, dry, no rashes or lesions noted, no excoriations from itching noted Laboratory Results - last 24 hr 04/09/20 04/09/20 04/09/20 16:10 16:10 16:10 WBC 9.9 RBC 4.57 Hgb 13.0 Hct 39.4 MCV 86.3 MCH 28.4 MCHC 32.9 RDW 13.9 Plt Count 244 MPV 8.3 Absolute Neuts (auto) 7.3 Neutrophils % 73.8 D Lymphocytes % 16.6 D Monocytes % 5.7 D Eosinophils % 3.6 D Basophils % 0.3 Nucleated RBC % 0 PT with INR 11.80 INR 1.00 Sodium 139 Potassium 3.8 Chloride 105 Carbon Dioxide 24 Anion Gap 10 BUN 25.0 H Creatinine 1.1 Est GFR (CKD-EPI)AfAm 54.15 Est GFR (CKD-EPI)NonAf 46.72 Random Glucose 145 H Calcium 9.4 Magnesium 2.3 Total Bilirubin 0.6 AST 18 ALT 25 Alkaline Phosphatase 83 Creatine Kinase 257 H Creatine Kinase Index 0.6 CK-MB (CK-2) 1.6 Troponin I < 0.02 Total Protein 7.6 Albumin 4.0 ASSESSMENT/PLAN: Pt is an 84 yo F with PMH of HTN, HLD, dementia, and suprasellar meningioma presenting with new onset lip swelling. Examination/workup significant for: mild residual swelling of upper and lower lips; unexplained opacity on soft tissue neck xr. Admitted for observation of angioedema of the lips without oropharyngeal involvement. #Angiodema likely 2/2 MAGDY Inhibitor (Lisinopril) - stop pt's home Lisinopril; avoid any ACEI/ARB - close monitoring for worsening symptoms - respiratory distress or development of stridor - Benadryl - 25 IV push prn - Solu-Medrol - 40 q6h - Pepcid - 20 IV bid - Will keep NPO; aspiration precautions - Pt passed bedside swallow, as per pt nurse. Speech and swallow eval tomorrow. - Soft tissue neck XR showing unexplained opacity; f/u CT of neck as per conversation with radiology - showing calcification around thyroid and no mass #Hx of HTN - continue home amlodipine 10, hctz 12.5 - stop lisinopril - will revise regimen to ensure appropriate BP control around the clock #Hx of HLD - continue home crestor 10 qhs #Hx of Dementia - continue home donepezil 5 qhs #DVT PPx - lovenox 40 SQ daily #FEN -F - LR @ 42 cc/hr -E - no electrolyte abnormalities; replete lytes PRN -N - NPO for now; f/u speech and swallow eval #Dispo Admitted for observation (telemetry) Visit type - Medication Review Med list reviewed for High Risk Meds patients 65 and older: Yes - Emergency Visit Emergency Visit: Yes ED Registration Date: 04/09/20 Care time: The patient presented to the Emergency Department on the above date and was hospitalized for further evaluation of their emergent condition. - New Patient This patient is new to me today: Yes Date on this admission: 04/10/20 - Critical Care Critical Care patient: No ATTENDING PHYSICIAN STATEMENT I saw and evaluated the patient. I reviewed the resident's note and discussed the case with the resident. I agree with the resident's findings and plan as documented. SUBJECTIVE: OBJECTIVE: ASSESSMENT AND PLAN:
--- NOTE | 2020-04-09 20:11 | PN ---
Teaching Attending Note Name of Resident: Amauri Hylton ATTENDING PHYSICIAN STATEMENT I saw and evaluated the patient. I reviewed the resident's note and discussed the case with the resident. I agree with the resident's findings and plan as documented. SUBJECTIVE: Patient is an 84 year old woman with a PMH of HTN, HLD, Dementia, Penicilin a llergy and Suprasellar meningioma who presents to ER with lip swelling since last night. Patient unable to provide information due to dementia, so most of history was given by . says that since last night she has had upper lip swelling that has been getting worse. There was associated lip numbness, swelling and redness around the eye and chronic dry cough. denies that patient has tried any new food, any new drugs, any new lotions, or any new soaps. Patient's doctor was also called to see if any new drugs were given and they denied any new drugs were prescribed. Has been on Lisinopril for years. Patient denies neck swelling, sore throat, lip swelling, chest pain, shortness of breath, abdominal pain, headache, palpitations, dizziness, fever, chills, nausea, vomiting, diarrhea, constipation, dysuria, frequency, urgency, melena, hematochezia or hematuria. Denies alcohol, tobacco or illicit drug use. No sick contacts or recent travels. Family history is unremarkable. OBJECTIVE: Alert and no stridor Vital Signs Period Temp Pulse Resp BP Sys/Pablo Pulse Ox Last 24 Hr 98.9 F 111 18 156/64 99 HEENT: No Jaundice, eye redness or discharge, PERRLA, EOMI. Swollen lips; no pharyngeal exudates or edema; no stridor; Normocephalic, atraumatic. External ears are normal and hearing is grossly intact. No nasal discharge. Neck: Supple, nontender. No palpable adenopathy or thyromegaly. No JVD Chest: Good effort. Clear to auscultation and percussion. Heart: Regular. No S3, rub or murmur Abdomen: Not distended, soft, nontender and no HSM. No rebound or guarding. Normal bowel sounds. Ext: Peripheral pulses intact. No leg edema. Skin: Warm and dry. No petechiae, rash or ecchymosis. Neuro: Alert. Oriented x3. CN 2-12 grossly intact. Sensation grossly intact in all four extremities and DTR are symmetric. Psych: Appropriate mood and affect. Good insight. Home Medications Medication Instructions Recorded Aspirin 81 mg PO DAILY 10/09/18 Donepezil HCl [Aricept -] 5 mg PO HS 10/11/19 Rosuvastatin [Crestor -] 10 mg PO DAILY 10/11/19 Amlodipine Besylate [Norvasc -] 10 mg PO DAILY #30 tablet 11/09/19 Hydrochlorothiazide [Hctz -] 12.5 mg PO DAILY #60 cap 11/09/19 Hydrochlorothiazide [Hctz -] 12.5 mg PO DAILY 04/09/20 Abnormal Lab Results 04/09/20 16:10 BUN 25.0 H Random Glucose 145 H Creatine Kinase 257 H Current Medications Generic Name Dose Route Start Last Admin Trade Name Freq PRN Reason Stop Dose Admin Enoxaparin Sodium 40 mg 04/10/20 10:00 Lovenox - SQ DAILY [facility] Lactated Ringer's 1,000 mls @ 42 mls/hr 04/09/20 23:00 04/09/20 23:18 Lactated Ringers Solution IV 42 mls/hr ASDIR AIMEE Administration ASSESSMENT AND PLAN: 1. Angioedema - Likely due to Lisinopril. No acute abnormality on CXR. Soft tissue neck xray shows an "unexplained opacity" in the ?pharynx - discussed finding with radiologist who could not conclusively characterize the opacity - thus will get CT scan of neck soft tissue. ER staff prescribed Benadryl, Solumedrol, EpiPen, Pepcid and IV NS for the patient. EKG shows NSR at 72/minute, LVH, LAE and QTc [address]-T wave changes. Will stop Lisinopril and avoid any ACEI/ARB, monitor closely for respiratory distress/stridor, continue Benadryl, Pepcid and Solumedrol, keep her NPO, do speech and swallow evaluation and implement aspiration precautions. Viral testing for COVID-19 ordered and patient placed on airborne, droplet and contact isolation. Will continue comprehensive care for all of patients comorbid conditions. 2. Hypertension Will restart suitable outpatient antihypertensive drugs when clinically appropriate. Subsequently, will revise regimen to ensure [id number] excellent BP control. Patient counseled on the injurious effects of uncontrolled hypertension. Nonpharmacologic measures to control hypertension like weight loss, salt restriction and exercise stressed. Importance of adherence to treatment regimen and attainment of normotension emphasized. 3. DVT prophylaxis - Lovenox 40 mg SQ q 24 hours. 4. Advance directives - Full code
[2020-04-09 22:09] LABS: EPI CELLS 2 /uL (0-25.1); HYALINE CASTS 1 /uL (0-3.1); URINE APPEARANCE CLEAR; URINE BACTERIA 3 /uL (0-1359); URINE BILIRUBIN NEGATIVE (NEGATIVE); URINE COLOR YELLOW; URINE GLUCOSE (UA) NEGATIVE (NEGATIVE); URINE KETONE NEGATIVE (NEGATIVE); URINE LEUK ESTERASE TRACE (NEGATIVE); URINE NITRITE NEGATIVE (NEGATIVE); URINE PROTEIN NEGATIVE (NEGATIVE); URINE RBC 4 /uL (0-23.9); URINE UROBILINOGEN 0.2 mg/dL (0.2-1.0); URINE WBC 7 /uL (0-25.8)
[2020-04-09] MEDS ORDERED: LACTATED RINGERS SOLUTION 1,000 ML IV SCH ×3 (22:30→23:00)
[2020-04-09 23:45] VITALS: BMI 32.5
[2020-04-10] MEDS: methylPREDNISolone NA SUCC 40 MG/1 ML VIAL IVPUSH SCH ×2 (04:25→11:08)
--- NOTE | 2020-04-10 07:18 | PN ---
Progress Note, Physician History of Present Illness: 84 yo F with PMH of HTN, HLD, dementia, and suprasellar meningioma presenting with new onset lip swelling. Examination/workup significant for: mild residual swelling of upper and lower lips; unexplained opacity on soft tissue neck xr. Admitted for observation of angioedema of the lips without oropharyngeal involvement. - Current Medication List Current Medications: Active Medications Amlodipine Besylate (Norvasc -) 10 mg PO DAILY [facility] Aspirin (Asa -) 81 mg PO DAILY [facility] Diphenhydramine HCl (Benadryl Injection -) 25 mg IVPUSH Q6H PRN PRN Reason: ALLERGIES Donepezil HCl (Aricept -) 5 mg PO HS [facility] Enoxaparin Sodium (Lovenox -) 40 mg SQ DAILY [facility] Hydrochlorothiazide (Hctz -) 12.5 mg PO DAILY [facility] Lactated Ringer's (Lactated Ringers Solution) 1,000 mls @ 42 mls/hr IV ASDIR AIMEE Last Admin: 04/09/20 23:18 Dose: 42 mls/hr Documented by: Famotidine/Sodium Chloride (Pepcid 20 Mg Premixed Ivpb -) 20 mg in 50 mls @ 100 mls/hr IVPB BID AIM[facility] Methylprednisolone Sodium Succinate (Solu-Medrol -) 40 mg IVPUSH Q6H-IV AIMEE Last Admin: 04/10/20 04:25 Dose: 40 mg Documented by: Rosuvastatin Calcium (Crestor -) 10 mg PO HS [facility] - Objective Vital Signs: Vital Signs Temperature 98 F 04/10/20 06:00 Pulse Rate 78 04/10/20 06:00 Respiratory Rate 13 04/10/20 06:00 Blood Pressure 144/70 04/10/20 06:00 O2 Sat by Pulse Oximetry (%) 100 04/10/20 06:00 Labs: INR, PTT INR 1.00 (0.83-1.09) 04/09/20 16:10 Problem List - Problems (1) Angioedema of lips Code(s): T78.3XXA - ANGIONEUROTIC EDEMA, INITIAL ENCOUNTER (2) HLD (hyperlipidemia) Code(s): E78.5 - HYPERLIPIDEMIA, UNSPECIFIED (3) Dementia Code(s): F03.90 - UNSPECIFIED DEMENTIA WITHOUT BEHAVIORAL DISTURBANCE (4) Prophylactic measure Code(s): Z29.9 - ENCOUNTER FOR PROPHYLACTIC MEASURES, UNSPECIFIED
[2020-04-10 07:27] LABS: BASO % 0.3 % (0-2.0); HEMATOCRIT 38.5 % (32.4-45.2); HEMOGLOBIN 12.6 GM/dL (10.7-15.3); LYMPH % 9.6 % (8-40); MCH 27.8 pg (25.7-33.7); MCHC 32.6 g/dl (32.0-36.0); MEAN CELL VOLUME 85.2 fl (80-96); MEAN PLT VOLUME 8.1 fl (7.5-11.1); MONO % 0.7 % (3.8-10.2); NEUT % 89.4 % (42.8-82.8); PLATELET COUNT 276 K/MM3 (134-434); RBC 4.53 M/mm3 (3.60-5.2); RDW 13.8 % (11.6-15.6); WHITE BLOOD COUNT 12.8 K/mm3 (4.0-10.0)
[2020-04-10 07:40] LABS: ALBUMIN 3.7 g/dl (3.4-5.0); BILIRUBIN,TOTAL 0.5 mg/dL (0.2-1); BLOOD UREA NITROGEN 21.9 mg/dL (7-18); CALCIUM 9.1 mg/dL (8.5-10.1); MAGNESIUM 2.3 mg/dL (1.8-2.4); POTASSIUM 4.2 mmol/L (3.5-5.1); TOT PROT 7.7 g/dl (6.4-8.2)
[2020-04-10] MEDS ORDERED: FAMOTIDINE 20 MG/50 ML IVPB 20 MG/50 ML MG IVPB SCH (10:00)
[2020-04-10] MEDS ORDERED: ASPIRIN 81 MG CHEWABLE TABLETS PO SCH (10:00)
[2020-04-10] MEDS ORDERED: HYDROCHLOROTHIAZIDE 12.5 MG CAPSULE (FP) PO SCH (10:00)
[2020-04-10] MEDS ORDERED: ENOXAPARIN NA (PORCINE) 40 MG/0.4 ML DISP.SYRIN SQ SCH (10:00)
[2020-04-10] MEDS ORDERED: amLODIPine BESYLATE 10 MG TABLET (FP) PO SCH (10:00)
[2020-04-10] MEDS ORDERED: FAMOTIDINE 20 MG TABLET PO SCH (11:00)
[2020-04-10] MEDS ORDERED: predniSONE 20 MG TABLET (UD) PO SCH (11:00)
--- NOTE | 2020-04-10 11:29 | EKG ---
Test Reason : Blood Pressure : / mmHG Vent. Rate : 072 BPM Atrial Rate : 072 BPM P-R Int : 160 ms QRS Dur : 080 ms QT Int : 390 ms P-R-T Axes : 060 004 046 degrees QTc Int : 427 ms NORMAL SINUS RHYTHM POSSIBLE LEFT ATRIAL ENLARGEMENT LEFT VENTRICULAR HYPERTROPHY INFERIOR INFARCT , AGE UNDETERMINED ABNORMAL ECG NO PREVIOUS ECGS AVAILABLE Confirmed by ELIZABETH MCKNIGHT MD ([id number]) on 04/10/2020 11:29:11 AM Referred By: Confirmed By:ELIZABETH MCKNIGHT MD
--- NOTE | 2020-04-10 11:43 | DS ---
Physical Exam: SUBJECTIVE: Patient seen and examined OBJECTIVE: Vital Signs Period Temp Pulse Resp BP Sys/Pablo Pulse Ox Last 24 Hr 97.8 F-99.9 F 75-111 13-24 132-156/55-73 94-100 PHYSICAL EXAM GENERAL: The patient is awake, alert, and fully oriented, in no acute distress. HEAD: Normal with no signs of trauma. EYES: PERRL, extraocular movements intact, sclera anicteric, conjunctiva clear. ENT: Ears normal, nares patent, oropharynx clear without exudates, moist mucous membranes. NECK: Trachea midline, full range of motion, supple. LUNGS: Breath sounds equal, clear to auscultation bilaterally, no wheezes, no crackles, no accessory muscle use. HEART: Regular rate and rhythm, S1, S2 without murmur, rub or gallop. ABDOMEN: Soft, nontender, nondistended, normoactive bowel sounds, no guarding, no rebound, no hepatosplenomegaly, no masses. EXTREMITIES: 2+ pulses, warm, well-perfused, no edema. NEUROLOGICAL: Cranial nerves II through XII grossly intact. Normal speech, gait not observed. PSYCH: Normal mood, normal affect. SKIN: Warm, dry, normal turgor, no rashes or lesions noted. LABS Laboratory Results - last 24 hr 04/09/20 04/09/20 04/09/20 16:10 16:10 16:10 WBC 9.9 RBC 4.57 Hgb 13.0 Hct 39.4 MCV 86.3 MCH 28.4 MCHC 32.9 RDW 13.9 Plt Count 244 MPV 8.3 Absolute Neuts (auto) 7.3 Neutrophils % 73.8 D Lymphocytes % 16.6 D Monocytes % 5.7 D Eosinophils % 3.6 D Basophils % 0.3 Nucleated RBC % 0 PT with INR 11.80 INR 1.00 Sodium 139 Potassium 3.8 Chloride 105 Carbon Dioxide 24 Anion Gap 10 BUN 25.0 H Creatinine 1.1 Est GFR (CKD-EPI)AfAm 54.15 Est GFR (CKD-EPI)NonAf 46.72 Random Glucose 145 H Calcium 9.4 Phosphorus Magnesium 2.3 Total Bilirubin 0.6 AST 18 ALT 25 Alkaline Phosphatase 83 Creatine Kinase 257 H Creatine Kinase Index 0.6 CK-MB (CK-2) 1.6 Troponin I < 0.02 Total Protein 7.6 Albumin 4.0 Urine Color Urine Appearance Urine pH Ur Specific [place] Urine Protein Urine Glucose (UA) Urine Ketones Urine Blood Urine Nitrite Urine Bilirubin Urine Urobilinogen Ur Leukocyte Esterase Urine WBC (Auto) Urine RBC (Auto) Urine Casts (Auto) U Epithel Cells (Auto) Urine Bacteria (Auto) 04/09/20 04/10/20 04/10/20 21:30 05:40 05:40 WBC 12.8 H RBC 4.53 Hgb 12.6 Hct 38.5 MCV 85.2 MCH 27.8 MCHC 32.6 RDW 13.8 Plt Count 276 MPV 8.1 Absolute Neuts (auto) 11.5 H Neutrophils % 89.4 H D Lymphocytes % 9.6 D Monocytes % 0.7 L D Eosinophils % 0.0 D Basophils % 0.3 Nucleated RBC % 1 H PT with INR INR Sodium 138 Potassium 4.2 Chloride 105 Carbon Dioxide 25 Anion Gap 8 BUN 21.9 H Creatinine 1.0 Est GFR (CKD-EPI)AfAm 60.76 Est GFR (CKD-EPI)NonAf 52.42 Random Glucose 145 H Calcium 9.1 Phosphorus 4.0 Magnesium 2.3 Total Bilirubin 0.5 AST 18 ALT 24 Alkaline Phosphatase 84 Creatine Kinase Creatine Kinase Index CK-MB (CK-2) Troponin I Total Protein 7.7 Albumin 3.7 Urine Color Yellow Urine Appearance Clear Urine pH 5.0 Ur Specific [place] 1.015 Urine Protein Negative Urine Glucose (UA) Negative Urine Ketones Negative Urine Blood Negative Urine Nitrite Negative Urine Bilirubin Negative Urine Urobilinogen 0.2 Ur Leukocyte Esterase Trace Urine WBC (Auto) 7 Urine RBC (Auto) 4 Urine Casts (Auto) 1 U Epithel Cells (Auto) 2 Urine Bacteria (Auto) 3 HOSPITAL COURSE: Date of Admission:04/09/20 Date of Discharge: 04/10/20 84 yo F with PMH of HTN, HLD, dementia, and suprasellar meningioma presenting with new onset lip swelling. Examination/workup significant for: mild residual swelling of upper and lower lips; unexplained opacity on soft tissue neck xr. Admitted for observation of angioedema of the lips without oropharyngeal involvement. Angiodema likely 2/2 MAGDY Inhibitor (Lisinopril) -lisinopril was topped on last admission r/t cough - stop pt's home Lisinopril; avoid any ACEI/ARB-placed allergy in computer -no stridor/sob overnight -rec'd - Benadryl - 25 IV push prn - Solu-Medrol - 40 q6h - Pepcid - 20 IV bid -additional dose of predisone this morning and prescription for epi-pen ghiven - Soft tissue neck XR showing unexplained opacity; f/u CT of neck as per conversation with radiology - showing calcification around thyroid and no mass #Hx of HTN - continue home amlodipine 10, hctz 12.5 - stop lisinopril #Hx of HLD - continue home crestor 10 qhs #Hx of Dementia - continue home donepezil 5 qhs #Dispo Stable overniight with no further angioedema. Dc's with epipen Minutes to complete discharge: 45 Discharge Summary Problems reviewed: Yes Reason For Visit: ANGIOEDEMA Current Active Problems Angioedema (Acute) Angioedema of lips (Acute) Dementia (Acute) HLD (hyperlipidemia) (Acute) Prophylactic measure (Acute) Weakness (Acute) Condition: Improved - Instructions Diet, Activity, Other Instructions: DISCHARGE YOUR VISIT You came to the hospital because you developed lip swelling. It was most likely related to the LISINIPRIL. DO NOT continue this medication. Follow with Dr Morel to monitor your blood pressure off the lisinipril. An epi pen was diven to you. If you have any severe allergic reaction use the epi pen MEDICATIONS Please continue to take your home medications as prescribed. There was some changes DO NOT TAKE LISINIPRI/PRINIVIL DIET Continue your home diet ADDITIONAL CARE Please make an appointment to see your primary care provider, Dr Morel 1 week from today. ADDITIONAL INFORMATION Please call 911 or come directly to the emergency department if you experience unusual headache, vision change, shortness of breath, chest pain, numbness, tingling, loss of alertness/awareness, loss of function, unusual bleeding or any alarming symptoms. Thank you for allowing me to care for you. Rashi Dunham, TEJ, [facility] [phone] Referrals: Lisa Morel, JESSICA [Primary Care Provider] - Disposition: HOME - Home Medications Comprehensive Discharge Medication List: Ambulatory Orders Aspirin 81 mg PO DAILY 10/09/18 Donepezil HCl [Aricept -] 5 mg PO HS 10/11/19 Rosuvastatin [Crestor -] 10 mg PO HS 10/11/19 Amlodipine Besylate [Norvasc -] 10 mg PO DAILY #30 tablet 11/09/19 Hydrochlorothiazide [Hctz -] 12.5 mg PO DAILY 04/09/20 EPINEPHrine (EPI-PEN 0.3MG) [Epipen 0.3MG -] 0.3 mg IM ASDIR #2 pens 04/10/20 predniSONE [Deltasone -] 40 mg PO DAILY #3 tablet 04/10/20 Prescription Drug Monitoring Program (I-STOP) results: I-STOP not reviewed Problem List - Problems (1) Angioedema of lips Code(s): T78.3XXA - ANGIONEUROTIC EDEMA, INITIAL ENCOUNTER (2) HLD (hyperlipidemia) Code(s): E78.5 - HYPERLIPIDEMIA, UNSPECIFIED (3) Dementia Code(s): F03.90 - UNSPECIFIED DEMENTIA WITHOUT BEHAVIORAL DISTURBANCE (4) Prophylactic measure Code(s): Z29.9 - ENCOUNTER FOR PROPHYLACTIC MEASURES, UNSPECIFIED This patient is new to me today: Yes Date on this admission: 04/10/20 Emergency Visit: Yes ED Registration Date: 04/09/20 Care time: The patient presented to the Emergency Department on the above date and was hospitalized for further evaluation of their emergent condition. Critical Care patient: No - Discharge Referral Referred to [facility] Med P.C[facility] No
[2020-04-10 14:07] VITALS: BP 136/68; PULSE 86; TEMP 98.3
[2020-04-10] MEDS ORDERED: ROSUVASTATIN CA 10 MG TABLET (FP) PO SCH (22:00)
[2020-04-10] MEDS ORDERED: DONEPEZIL HCL 5 MG TABLET (FP) PO SCH (22:00)
== END 2020-04-10 15:48 | disposition home or self-care (01) ==
LOC: JER 15:46 → JERBED 18:16 → JICU 22:53
PROVIDERS: ADMIT Internal Medicine; ATTEND Nurse Practitioner Acute Care
PROC: 3E023GC Introduction of Other Therapeutic Substance into Muscle, Percutaneous Approach (ICD-10-PCS; principal; 2020-04-09)
PROC: 3E0337Z Introduction of Electrolytic and Water Balance Substance into Peripheral Vein, Percutaneous Approach (ICD-10-PCS; 2020-04-09)
PROC: 3E033GC Introduction of Other Therapeutic Substance into Peripheral Vein, Percutaneous Approach (ICD-10-PCS; 2020-04-09)
DX: T78.3XXA Angioneurotic edema, initial encounter (principal); I10 Essential (primary) hypertension; Z88.8 Allergy status to other drugs, medicaments and biological substances; F03.90 Unspecified dementia, unspecified severity, without behavioral disturbance, psychotic disturbance, mood disturbance, and anxiety; E78.5 Hyperlipidemia, unspecified; D32.9 Benign neoplasm of meninges, unspecified; Z29.9 Encounter for prophylactic measures, unspecified; Z88.0 Allergy status to penicillin
CPT/HCPCS: 36415; 70360-TC-FY; 70490-TC; 71045-TC-FY; 80053; 81003; 82550; 82553; 83735; 84100; 84484; 85025; 85610; 93005; 93010; 96361; 96365; 96372; 96375; 99285-25; G0378; U0003

== ENCOUNTER 2020-05-18 14:58 | Emergency (ER) | payer OTHER ==
[2020-05-18 15:04] VITALS: BMI 26.6
--- NOTE | 2020-05-18 16:42 | PDOC ---
History of Present Illness - General History Source: Patient Exam Limitations: No Limitations - History of Present Illness Initial Comments: 05/18/20 16:41 Patient is an 84-year-old female with history of HTN, HLD, dementia, suprasellar meningioma, KADEN here with complaints of cough since last night. Patient states that her cough has been persistent all night was unable to get any sleep and has persisted throughout the day. Here in the ER patient has no coughing. States she has been seen in the ER on 3 other occasions. On chart review noted patient had cough produced by lisinopril and was subsequently admitted for angioedema. Lisinopril was discontinued on last admission 2 months ago. Patient denies shortness of breath, fever, chills, exposure to irritants, exposure to COVID. Denies leg swelling. PMD: Dr. Morel PMHX: as above PSOCHX: neg cig, neg etoh, neg drug ALL: PCN, Lisinopril Review of Systems: GENERAL/CONSTITUTIONAL: No fever or chills. No weakness. No weight change. HEAD, EYES, EARS, NOSE AND THROAT: No change in vision. No ear pain or discharge. No sore throat. CARDIOVASCULAR: No chest pain or shortness of breath. RESPIRATORY: (+) cough, (-) wheezing, or hemoptysis. GASTROINTESTINAL: No nausea, vomiting, diarrhea or constipation. No rectal bleeding. GENITOURINARY: No dysuria, frequency, or change in urination. MUSCULOSKELETAL: No joint or muscle swelling or pain. No neck or back pain. SKIN AND BREASTS: No rash or easy bruising. NEUROLOGIC: No headache, vertigo, loss of consciousness, or loss of sensation. PSYCHIATRIC: No depression or anxiety. ENDOCRINE: No increased thirst. No abnormal weight change. HEMATOLOGIC/LYMPHATIC: No anemia, easy bleeding, or history of blood clots. ALLERGIC/IMMUNOLOGIC: No hives or skin allergy. No latex allergy. GENERAL: [The patient is awake, alert, and fully oriented, in no acute distress.] HEAD: [Normal with no signs of trauma.] EYES: [Pupils equal, round and reactive to light, extraocular movements intact, sclera anicteric, conjunctiva clear.] ENT: [Ears normal, nares patent, oropharynx clear without exudates. Moist mucous membranes.] NECK: [Normal range of motion, supple without lymphadenopathy, JVD, or masses.] LUNGS: [Breath sounds equal, clear to auscultation bilaterally. No wheezes, and no crackles.] HEART: [Regular rate and rhythm, normal S1 and S2 without murmur, rub.] ABDOMEN: [Soft, nontender, normoactive bowel sounds. No guarding, no rebound. No masses.] EXTREMITIES: [Normal range of motion, no edema. No clubbing or cyanosis. No cords, erythema, or tenderness.] NEUROLOGICAL: [Cranial nerves II through XII grossly intact. Normal speech, normal gait.] PSYCH: [Normal mood, normal affect.] SKIN: [Warm, Dry, normal turgor, no rashes or lesions noted.] <Oj Paul - Last Filed: 05/18/20 23:59> <Alexus Sorto - Last Filed: 05/19/20 12:20> - General Chief Complaint: Cold Symptoms Stated Complaint: COUGHING Time Seen by Provider: 05/18/20 15:30 Past History - Medical History Anemia: No Asthma: No Cancer: No Cardiac Disorders: No CVA: No COPD: No CHF: No Dementia: Yes Diabetes: No GI Disorders: Yes (TUBULAR ADENOMA) Disorders: No HTN: Yes Hypercholesterolemia: No Liver Disease: No Seizures: No Thyroid Disease: No - Surgical History Abdominal Surgery: Yes Appendectomy: No Cardiac Surgery: No Cholecystectomy: No Lung Surgery: No Neurologic Surgery: No Orthopedic Surgery: Yes (RIGHT KNEE REPLACEMENT) - Reproductive History Is Patient Now?: No - Immunization History Immunization Up to Date: Yes (flu 2 wks ago) - Psycho-Social/Smoking History Smoking Status: No Smoking History: Never smoked Have you smoked in the past 12 months: No Number of Cigarettes Smoked Daily: 0 Information on smoking cessation initiated: No - Substance Abuse Hx (Audit-C & DAST Scrn) How often the patient has a drink containing alcohol: Never Score: In Men: 4 or > Positive; In Women: 3 or > Positive: 0 Screen Result (Pos requires Nsg. Audit-10AR): Negative In the last yr the pt used illegal drug/Rx for NonMed reason: No Score: Yes response is considered Positive: 0 Screen Result (Positive result requires Nsg. DAST-10): Negative <Oj Paul - Last Filed: 05/18/20 23:59> <Alexus Sorto - Last Filed: 05/19/20 12:20> - Medical History Allergies/Adverse Reactions: Allergies Allergy/AdvReac Type Severity Reaction Status Date / Time lisinopril Allergy Severe Swelling Verified 05/18/20 15:04 Penicillins Allergy Mild Hives Verified 05/18/20 15:04 Home Medications: Ambulatory Orders Aspirin 81 mg PO DAILY 10/09/18 Donepezil HCl [Aricept -] 5 mg PO HS 10/11/19 Rosuvastatin [Crestor -] 10 mg PO HS 10/11/19 Amlodipine Besylate [Norvasc -] 10 mg PO DAILY #30 tablet 11/09/19 Hydrochlorothiazide [Hctz -] 12.5 mg PO DAILY 04/09/20 EPINEPHrine (EPI-PEN 0.3MG) [Epipen 0.3MG -] 0.3 mg IM ASDIR #2 pens 04/10/20 Azithromycin [Zithromax -] 250 mg PO DAILY #4 tablet 05/18/20 *Physical Exam - Vital Signs Last Vital Signs Temp Pulse Resp BP Pulse Ox 98.0 F 82 18 142/58 L 100 05/18/20 15:00 05/18/20 15:00 05/18/20 15:00 05/18/20 15:00 05/18/20 15:00 <Oj Paul - Last Filed: 05/18/20 23:59> - Vital Signs Last Vital Signs Temp Pulse Resp BP Pulse Ox 98.3 F 80 20 140/70 100 05/18/20 20:00 05/18/20 20:00 05/18/20 20:00 05/18/20 20:00 05/18/20 20:00 <Alexus Sorto - Last Filed: 05/19/20 12:20> ED Treatment Course - LABORATORY CBC & Chemistry Diagram: 05/18/20 17:00 05/18/20 17:00 - RADIOLOGY Radiology Studies Ordered: Category Date Time Status CXR [CHEST PA & LAT] [RAD] Stat Radiology 05/18/20 16:17 Taken <Oj Paul - Last Filed: 05/18/20 23:59> - LABORATORY CBC & Chemistry Diagram: 05/18/20 17:00 05/18/20 17:00 - ADDITIONAL ORDERS Additional order review: 05/18/20 17:00 RBC 4.40 MCV 85.4 MCHC 33.3 RDW 14.2 MPV 8.0 Neutrophils % 70.0 D Lymphocytes % 15.0 D Monocytes % 9.8 D Eosinophils % 3.9 D Basophils % 1.3 D - Medications Given in the ED: ED Medications Discontinued Medications Generic Name Dose Route Start Last Admin Trade Name Kalen PRN Reason Stop Dose Admin Azithromycin 500 mg 05/18/20 20:11 05/18/20 20:20 Zithromax PO 05/18/20 20:12 500 mg ONCE ONE Administration <Alexus Sorto - Last Filed: 05/19/20 12:20> Medical Decision Making - Medical Decision Making 05/18/20 16:41 Patient is an 84-year-old female with history of HTN, HLD, dementia, suprasellar meningioma, KADEN here with complaints of cough since last night. Patient states that her cough has been persistent all night was unable to get any sleep and has persisted throughout the day. Here in the ER patient has no coughing. States she has been seen in the ER on 3 other occasions. On chart review noted patient had cough produced by lisinopril and was subsequently admitted for angioedema. Lisinopril was discontinued on last admission 2 months ago. Patient denies shortness of breath, fever, chills, exposure to irritants, exposure to COVID. Denies leg swelling. Patient, cause unknown Chest x-ray Labs Reassess D-dimer was positive send patient for CT angiogram chest 05/18/20 19:50 Patient Full Name: HUGO BARROSO Patient Accession No: [id number] Patient : [id number] Reason for Exam: cough Referring Physician: Patient Name: [facility] THIS IS A PRELIMINARY REPORT FROM [facility] EXAM: CT Angiogram (CTA) Chest w IMAGES: [id number] EXAM DATE AND TIME: 2020-05-18 18:45:39 HISTORY: 84 year old woman: Cough. COMPARISON: None. TECHNIQUE: CT Angiogram (CTA) Chest: Thin cut axial images were obtained during the administration of non-ionic iodinated IV contrast. 70 cc Omnipaque. Coronal and sagittal thin and thick slice MIP reformatted images were also generated. FINDINGS: The soft tissues of the lower neck appear unremarkable. The thyroid glands are normal in size and contour. The tracheobronchial airways are patent. There is no evidence of axillary or mediastinal adenopathy. This CT scan was taken during poor inspiration. There is elevation of the right hemidiaphragm up to the level of the right hilum. There is mild atelectasis in both lung bases. Hazy groundglass patchy infiltrates are suggested in both lower lobes. There are no pleural effusions or pulmonary nodules. There is a mild cardiomegaly. There are no coronary artery calcifications. small scatteredatherosclerotic mural calcifications in the left main coronary artery. Evaluation of the pulmonary arteries is limited by image acquisition during a poor inspiratory effort with crowding of the lower lobe vasculature. The pulmonary arteries are patent to their fifth and sixth generation segmental and subsegmental branches, without evidence of filling defect or pulmonary e mbolus. The thoracic aorta ascending, arch and descending segments, great vessels arising from the aortic arch, and upper abdominal aorta are normal in diameter and wall thickness, without evidence of aneurysm or dissection. Osseous structures exhibit grossly normal mineralization without evidence of lytic or sclerotic lesions. The thoracic vertebral body heights and alignments are well maintained. Upper abdominal organs appear normal. IMPRESSION: This CT scan was taken during poor inspiration. Elevation of the right hemidiaphragm up to the level of the right hilum. Mild atelectasis in both lung bases. Hazy groundglass patchy infiltrates are suggested in both lower lobes, possibly representing early pneumonia or pulmonary edema. The study is otherwise unremarkable: No evidence of pulmonary embolus, pleural effusion or pulmonary nodule. . One or more of the following dose reduction techniques were used: automated exposure control, adjustment of the mA and/or kV according to patient size, use of iterative reconstructive technique. THIS DOCUMENT HAS BEEN ELECTRONICALLY SIGNED Nawaf Ash MD. 05/18/2020 19:43 JAYLON Thomas. Please call [employer] Sales Representative [phone] ([phone]) with questions. INTERPRETING RADIOLOGIST: Nawaf Ash MD Electronically Signed: May 18, 2020 07:43PM EDT Will swab patient and instructed quarantine. Zithromax 500 mg p.o. given in the ED, Prescription for Zithromax sent to [facility] Selected Entries 05/18/20 20:00 Temperature 98.3 F Pulse Rate [ 80 Left Radial] Respiratory 20 Rate Blood Pressure 140/70 [Left Arm] O2 Sat by Pulse 100 Oximetry (%) At discharge patient has normal vitals and satting at 100% on room air and in no acute distress. I discussed the physical exam findings, ancillary test results and final diagnoses with the patient. I answered all of the patient's questions. The patient was satisfied with the care received and felt comfortable with the discharge plan and treatment plan. The Patient agrees to follow up with the primary care physician within 24-72 hours. <Oj Paul - Last Filed: 05/18/20 23:59> - Medical Decision Making I reviewed the case with the mid-level practitioner and agree with the mid-level practitioner's assessment, diagnosis and disposition. <Alexus Sorto - Last Filed: 05/19/20 12:20> Discharge - Discharge Information Problems reviewed: Yes <Oj Paul - Last Filed: 05/18/20 23:59> <Alexus Sorto - Last Filed: 05/19/20 12:20> - Discharge Information Clinical Impression/Diagnosis: Cough, Counseled about COVID-19 virus infection Condition: Stable Disposition: HOME - Additional Discharge Information Prescriptions: Azithromycin [Zithromax -] 250 mg PO DAILY #4 tablet - Follow up/Referral Referrals: Lisa Morel NP [Primary Care Provider] - - Patient Discharge Instructions Patient Printed Discharge Instructions: DI for Viral Upper Respiratory Infection -- Adult, [facility]-Coronavirus Instructions Additional Instructions: Your Discharge Instructions: You must call primary care physician within 24 hours to arrange follow-up. Return to the Emergency Department with any new, persistent or worsening symptoms, for fever, chills, SOB, dizziness or any other concerning changes that may occur. Recommend that you quarantine until your symptoms have resolved. - Post Discharge Activity
[2020-05-18 17:15] LABS: BASO % 1.3 % (0-2.0); EOS % 3.9 % (0-4.5); HEMATOCRIT 37.6 % (32.4-45.2); HEMOGLOBIN 12.5 GM/dL (10.7-15.3); MCH 28.4 pg (25.7-33.7); MCHC 33.3 g/dl (32.0-36.0); MEAN CELL VOLUME 85.4 fl (80-96); MONO % 9.8 % (3.8-10.2); PLATELET COUNT 280 K/MM3 (134-434); RDW 14.2 % (11.6-15.6); WHITE BLOOD COUNT 12.4 K/mm3 (4.0-10.0)
[2020-05-18 17:39] LABS: BILIRUBIN,TOTAL 0.5 mg/dL (0.2-1); BLOOD UREA NITROGEN 17.3 mg/dL (7-18); CALCIUM 9.4 mg/dL (8.5-10.1); CREATININE 0.9 mg/dL (0.55-1.3); N-TERMINAL BNP 23.6 pg/ml (5-450); POTASSIUM 4.5 mmol/L (3.5-5.1); TOT PROT 7.6 g/dl (6.4-8.2)
[2020-05-18 17:54] LABS: ANISOCYTOSIS 0; MACROCYTOSIS 0; PLATELET ESTIMATE NORMAL
[2020-05-18] MEDS ORDERED: AZITHROMYCIN 500 MG TABLET PO ONE (20:11)
[2020-05-18 20:19] VITALS: BP 140/70; PULSE 80; TEMP 98.3
[2020-05-18] MEDS ORDERED: AZITHROMYCIN 250 MG TABLET ONE (20:22)
== END 2020-05-18 20:30 | disposition home or self-care (01) ==
LOC: JER 14:58
DX: R05 Cough (principal)
CPT/HCPCS: 36415; 71046-TC-FY; 71275-TC; 80053; 83880; 85025; 85379; 99285-25; Q9967; U0003

== ENCOUNTER 2020-09-16 03:24 | Inpatient (IN) | payer OTHER ==
[2020-09-16] MEDS ORDERED: ACETAMINOPHEN 1000 MG/100 ML BAG IVPB ONE (03:50)
[2020-09-16] MEDS ORDERED: SODIUM CHLORIDE 0.9% 500 ML INFUS.BAG IV ONE (03:50)
[2020-09-16] MEDS ORDERED: ACETAMINOPHEN INJECTION 100 ML IVPB ONE (03:51)
[2020-09-16 04:42] LABS: BASO % 0.2 % (0-2.0); HEMATOCRIT 36.1 % (32.4-45.2); HEMOGLOBIN 12.2 GM/dL (10.7-15.3); LYMPH % 8.8 % (8-40); MCHC 33.7 g/dl (32.0-36.0); MEAN CELL VOLUME 82.9 fl (80-96); MONO % 11.2 % (3.8-10.2); NEUT % 79.8 % (42.8-82.8); PLATELET COUNT 174 K/MM3 (134-434); RBC 4.35 M/mm3 (3.60-5.2); RDW 13.8 % (11.6-15.6); WHITE BLOOD COUNT 9.7 K/mm3 (4.0-10.0)
[2020-09-16 04:54] LABS: CALCIUM 8.3 mg/dL (8.5-10.1)
[2020-09-16 04:55] LABS: ALBUMIN 3.6 g/dl (3.4-5.0); BLOOD UREA NITROGEN 16.2 mg/dL (7-18); INR 1.25 (0.83-1.09); PROTHROMBIN TIME (PATIENT) 15.3 SEC (9.7-13.0)
[2020-09-16 04:57] LABS: BILIRUBIN,DIRECT 0.2 mg/dL (0.0-0.2)
[2020-09-16 04:58] LABS: ACTIVATED PTT 31.7 SECONDS (25.2-36.5); CREATININE 1.2 mg/dL (0.55-1.3)
[2020-09-16 04:59] LABS: BILIRUBIN,TOTAL 0.6 mg/dL (0.2-1); TOT PROT 7.3 g/dl (6.4-8.2)
[2020-09-16 05:32] LABS: EPI CELLS 36 /uL (0-25.1); HYALINE CASTS 17 /uL (0-3.1); PH,URINE 5.5 (5.0-8.0); URINE APPEARANCE CLEAR; URINE BACTERIA 1610 /uL (0-1359); URINE BILIRUBIN NEGATIVE (NEGATIVE); URINE COLOR YELLOW; URINE GLUCOSE (UA) NEGATIVE (NEGATIVE); URINE KETONE TRACE (NEGATIVE); URINE LEUK ESTERASE NEGATIVE (NEGATIVE); URINE NITRITE NEGATIVE (NEGATIVE); URINE PROTEIN 1+ (NEGATIVE); URINE RBC 5 /uL (0-23.9); URINE WBC 18 /uL (0-25.8)
[2020-09-16] MEDS ORDERED: CEFEPIME HCL/D5W 2 GM/50 ML BAG IVPB ONE (06:27)
[2020-09-16] MEDS ORDERED: VANCOMYCIN 1 GM in D5W (PRE-DOCKED) 1,000 MG/250 ML IVPB ONE (06:28)
[2020-09-16] MEDS ORDERED: VANCOMYCIN 1 GRAM (PRE-DOCKED) 1,000 MG/250 ML BAG IVPB ONE (06:48)
[2020-09-16] MEDS ORDERED: CEFEPIME 2 GM/100 ML BAG IVPB ONE (06:49)
[2020-09-16] MEDS ORDERED: SODIUM CHLORIDE 1,000 ML IV SCH (08:45)
[2020-09-16] MEDS ORDERED: ALBUTEROL SO4 HFA INHALER IH PRN (11:36)
[2020-09-16] MEDS ORDERED: ENOXAPARIN NA (PORCINE) 40 MG/0.4 ML DISP.SYRIN SQ ONE (11:37)
[2020-09-16] MEDS ORDERED: SODIUM CHLORIDE 250 ML IV STA (11:38)
[2020-09-16] MEDS ORDERED: CHOLECALCIFEROL (VIT D3) 400 UNIT (10 MCG) TABLET PO SCH (11:45)
[2020-09-16] MEDS ORDERED: DEXAMETHASONE SOD PHOSPHATE 4 MG/1 ML VIAL IVPUSH SCH (11:45)
[2020-09-16] MEDS: ENOXAPARIN NA (PORCINE) 40 MG/0.4 ML DISP.SYRIN SQ SCH (11:54)
[2020-09-16] MEDS ORDERED: ASCORBIC ACID 500 MG TABLET (FP) ONE (12:20)
[2020-09-16] MEDS ORDERED: DEXAMETHASONE SOD PHOSPHATE 4 MG/1 ML VIAL ONE (12:21)
[2020-09-16] MEDS ORDERED: ZINC SULFATE 220 MG CAPSULE (FP) ONE (12:21)
[2020-09-16] MEDS ORDERED: CHOLECALCIFEROL (VIT D3) 1,000 UNIT (25 MCG) TABLET ONE (12:21)
[2020-09-16] MEDS: ASCORBIC ACID 500 MG TABLET (FP) PO SCH ×2 (12:47→22:44)
[2020-09-16] MEDS: ZINC SULFATE 220 MG CAPSULE (FP) PO SCH (12:47)
[2020-09-16] MEDS: ASPIRIN 81 MG CHEWABLE TABLETS PO SCH (17:09)
[2020-09-16] MEDS ORDERED: ROSUVASTATIN CA 10 MG TABLET PO SCH (22:00)
[2020-09-16] MEDS: MONTELUKAST NA 10 MG TABLET PO SCH (22:44)
[2020-09-16] MEDS: DONEPEZIL HCL 5 MG TABLET (FP) PO SCH (22:44)
[2020-09-17 00:33] VITALS: BMI 31.6
[2020-09-17] MEDS ORDERED: CHOLECALCIFEROL (VIT D3) 400 UNIT (10 MCG) TABLET PO SCH (10:00)
[2020-09-17 11:38] LABS: BASO % 0.1 % (0-2.0); EOS % 0.1 % (0-4.5); HEMATOCRIT 35.7 % (32.4-45.2); HEMOGLOBIN 11.8 GM/dL (10.7-15.3); LYMPH % 5.2 % (8-40); MCH 27.4 pg (25.7-33.7); MEAN PLT VOLUME 9.1 fl (7.5-11.1); MONO % 11.4 % (3.8-10.2); NEUT % 83.2 % (42.8-82.8); RBC 4.29 M/mm3 (3.60-5.2); RDW 14.1 % (11.6-15.6); WHITE BLOOD COUNT 14.3 K/mm3 (4.0-10.0)
[2020-09-17] MEDS: ENOXAPARIN NA (PORCINE) 40 MG/0.4 ML DISP.SYRIN SQ SCH (11:42)
[2020-09-17] MEDS: ASPIRIN 81 MG CHEWABLE TABLETS PO SCH (11:42)
[2020-09-17] MEDS: ASCORBIC ACID 500 MG TABLET (FP) PO SCH ×2 (11:43→21:54)
[2020-09-17] MEDS: amLODIPine BESYLATE 10 MG TABLET (FP) PO SCH (11:43)
[2020-09-17] MEDS: ZINC SULFATE 220 MG CAPSULE (FP) PO SCH (11:43)
[2020-09-17 12:03] LABS: CALCIUM 8.4 mg/dL (8.5-10.1)
[2020-09-17 12:04] LABS: BLOOD UREA NITROGEN 14.9 mg/dL (7-18)
[2020-09-17] MEDS ORDERED: BAMLANIVIMAB 700 MG in SODIUM CHLORIDE 180 ML IVPB ONE ×2 (12:18→14:00)
[2020-09-17 13:46] LABS: PLATELET ESTIMATE NORMAL
[2020-09-17 13:54] LABS: PLATELET COUNT 216 K/MM3 (134-434)
[2020-09-17] MEDS: DONEPEZIL HCL 5 MG TABLET (FP) PO SCH (21:54)
[2020-09-17] MEDS: MONTELUKAST NA 10 MG TABLET PO SCH (21:54)
[2020-09-18] MEDS: amLODIPine BESYLATE 10 MG TABLET (FP) PO SCH (09:19)
[2020-09-18] MEDS: ASCORBIC ACID 500 MG TABLET (FP) PO SCH ×2 (09:19→22:41)
[2020-09-18] MEDS: ZINC SULFATE 220 MG CAPSULE (FP) PO SCH (09:19)
[2020-09-18] MEDS: ASPIRIN 81 MG CHEWABLE TABLETS PO SCH (09:19)
[2020-09-18] MEDS: CHOLECALCIFEROL (VIT D3) 1,000 UNIT (25 MCG) TABLET PO SCH (09:19)
[2020-09-18] MEDS ORDERED: ASPIRIN COATED 81 MG TABLET.EC PO SCH (10:00)
[2020-09-18] MEDS ORDERED: SODIUM CHLORIDE 1,000 ML IV SCH (15:30)
[2020-09-18] MEDS: DONEPEZIL HCL 5 MG TABLET (FP) PO SCH (22:41)
[2020-09-18] MEDS: MONTELUKAST NA 10 MG TABLET PO SCH (22:41)
[2020-09-19 09:56] LABS: HEMATOCRIT 31.9 % (32.4-45.2); HEMOGLOBIN 10.8 GM/dL (10.7-15.3); MCH 27.5 pg (25.7-33.7); MCHC 33.9 g/dl (32.0-36.0); MEAN CELL VOLUME 81.1 fl (80-96); MEAN PLT VOLUME 8.9 fl (7.5-11.1); PLATELET COUNT 186 K/MM3 (134-434); RBC 3.94 M/mm3 (3.60-5.2); RDW 13.9 % (11.6-15.6); WHITE BLOOD COUNT 8.4 K/mm3 (4.0-10.0)
[2020-09-19 10:14] LABS: BLOOD UREA NITROGEN 12.6 mg/dL (7-18)
[2020-09-19] MEDS: amLODIPine BESYLATE 10 MG TABLET (FP) PO SCH (10:17)
[2020-09-19] MEDS: CHOLECALCIFEROL (VIT D3) 1,000 UNIT (25 MCG) TABLET PO SCH (10:17)
[2020-09-19] MEDS: ASCORBIC ACID 500 MG TABLET (FP) PO SCH ×2 (10:17→21:51)
[2020-09-19] MEDS: ZINC SULFATE 220 MG CAPSULE (FP) PO SCH (10:17)
[2020-09-19] MEDS: ASPIRIN 81 MG CHEWABLE TABLETS PO SCH (10:17)
[2020-09-19 10:19] LABS: CALCIUM 8.1 mg/dL (8.5-10.1)
[2020-09-19 10:21] LABS: CREATININE 0.8 mg/dL (0.55-1.3)
[2020-09-19] MEDS ORDERED: POTASSIUM CHLORIDE TABS 20 MEQ TABLET.ER (FP) PO ONE (13:00)
[2020-09-19] MEDS ORDERED: REMDESIVIR 200 MG in SODIUM CHLORIDE 210 ML IVPB ONE (16:00)
[2020-09-19] MEDS: ENOXAPARIN NA (PORCINE) 80 MG/0.8 ML DISP.SYRIN SQ SCH (18:01)
[2020-09-19] MEDS: MONTELUKAST NA 10 MG TABLET PO SCH (21:51)
[2020-09-19] MEDS: DONEPEZIL HCL 5 MG TABLET (FP) PO SCH (21:51)
[2020-09-20] MEDS: ENOXAPARIN NA (PORCINE) 80 MG/0.8 ML DISP.SYRIN SQ SCH ×2 (05:00→17:53)
[2020-09-20 09:28] LABS: HEMATOCRIT 31.3 % (32.4-45.2); HEMOGLOBIN 10.6 GM/dL (10.7-15.3); MCH 27.5 pg (25.7-33.7); MCHC 33.9 g/dl (32.0-36.0); MEAN PLT VOLUME 8.9 fl (7.5-11.1); PLATELET COUNT 208 K/MM3 (134-434); RBC 3.87 M/mm3 (3.60-5.2); RDW 14.3 % (11.6-15.6); WHITE BLOOD COUNT 7.2 K/mm3 (4.0-10.0)
[2020-09-20 09:37] LABS: ALBUMIN 2.6 g/dl (3.4-5.0); BLOOD UREA NITROGEN 13.2 mg/dL (7-18); CALCIUM 7.9 mg/dL (8.5-10.1)
[2020-09-20 09:39] LABS: BILIRUBIN,TOTAL 0.3 mg/dL (0.2-1); TOT PROT 5.5 g/dl (6.4-8.2)
[2020-09-20 09:40] LABS: CREATININE 0.7 mg/dL (0.55-1.3)
[2020-09-20] MEDS: ZINC SULFATE 220 MG CAPSULE (FP) PO SCH (11:00)
[2020-09-20] MEDS: ASCORBIC ACID 500 MG TABLET (FP) PO SCH ×2 (11:00→21:24)
[2020-09-20] MEDS: amLODIPine BESYLATE 10 MG TABLET (FP) PO SCH (11:00)
[2020-09-20] MEDS: DEXAMETHASONE SOD PHOSPHATE 10 MG/1 ML VIAL IVPUSH SCH (11:00)
[2020-09-20] MEDS: CHOLECALCIFEROL (VIT D3) 1,000 UNIT (25 MCG) TABLET PO SCH (11:00)
[2020-09-20] MEDS: REMDESIVIR 100 MG in SODIUM CHLORIDE 230 ML IVPB SCH (17:53)
[2020-09-20] MEDS: DONEPEZIL HCL 5 MG TABLET (FP) PO SCH (21:24)
[2020-09-20] MEDS: MONTELUKAST NA 10 MG TABLET PO SCH (21:24)
[2020-09-21] MEDS: ENOXAPARIN NA (PORCINE) 80 MG/0.8 ML DISP.SYRIN SQ SCH ×2 (05:07→16:10)
[2020-09-21 08:41] LABS: HEMATOCRIT 32.5 % (32.4-45.2); HEMOGLOBIN 10.8 GM/dL (10.7-15.3); MCHC 33.1 g/dl (32.0-36.0); MEAN CELL VOLUME 81.4 fl (80-96); MEAN PLT VOLUME 9.2 fl (7.5-11.1); PLATELET COUNT 240 K/MM3 (134-434); RDW 14.5 % (11.6-15.6); WHITE BLOOD COUNT 7.1 K/mm3 (4.0-10.0)
[2020-09-21 09:03] LABS: ALBUMIN 2.5 g/dl (3.4-5.0); CALCIUM 8.2 mg/dL (8.5-10.1)
[2020-09-21 09:04] LABS: BLOOD UREA NITROGEN 15.5 mg/dL (7-18); MAGNESIUM 2.1 mg/dL (1.8-2.4)
[2020-09-21 09:07] LABS: CREATININE 0.6 mg/dL (0.55-1.3)
[2020-09-21 09:08] LABS: BILIRUBIN,TOTAL 0.7 mg/dL (0.2-1); TOT PROT 5.7 g/dl (6.4-8.2)
[2020-09-21] MEDS: DEXAMETHASONE SOD PHOSPHATE 10 MG/1 ML VIAL IVPUSH SCH (10:43)
[2020-09-21] MEDS: ZINC SULFATE 220 MG CAPSULE (FP) PO SCH (10:43)
[2020-09-21] MEDS: CHOLECALCIFEROL (VIT D3) 1,000 UNIT (25 MCG) TABLET PO SCH (10:43)
[2020-09-21] MEDS: ASCORBIC ACID 500 MG TABLET (FP) PO SCH ×2 (10:43→21:37)
[2020-09-21] MEDS: amLODIPine BESYLATE 10 MG TABLET (FP) PO SCH (10:43)
[2020-09-21] MEDS: ACETAMINOPHEN 325 MG TABLET (FP) PO PRN (10:44)
[2020-09-21] MEDS: REMDESIVIR 100 MG in SODIUM CHLORIDE 230 ML IVPB SCH (16:10)
[2020-09-21] MEDS: MONTELUKAST NA 10 MG TABLET PO SCH (21:36)
[2020-09-21] MEDS: DONEPEZIL HCL 5 MG TABLET (FP) PO SCH (21:37)
[2020-09-22] MEDS: ENOXAPARIN NA (PORCINE) 80 MG/0.8 ML DISP.SYRIN SQ SCH ×2 (05:05→18:43)
[2020-09-22] MEDS: DEXAMETHASONE SOD PHOSPHATE 10 MG/1 ML VIAL IVPUSH SCH (10:56)
[2020-09-22] MEDS: amLODIPine BESYLATE 10 MG TABLET (FP) PO SCH (10:58)
[2020-09-22] MEDS: ZINC SULFATE 220 MG CAPSULE (FP) PO SCH (10:58)
[2020-09-22] MEDS: ASCORBIC ACID 500 MG TABLET (FP) PO SCH ×2 (10:59→22:42)
[2020-09-22] MEDS: CHOLECALCIFEROL (VIT D3) 1,000 UNIT (25 MCG) TABLET PO SCH (10:59)
[2020-09-22] MEDS: REMDESIVIR 100 MG in SODIUM CHLORIDE 230 ML IVPB SCH (15:38)
[2020-09-22] MEDS: ACETAMINOPHEN 325 MG TABLET (FP) PO PRN (18:44)
[2020-09-22] MEDS: FAMOTIDINE 20 MG/50 ML IVPB 20 MG/50 ML MG IVPB SCH (22:42)
[2020-09-22] MEDS: DONEPEZIL HCL 5 MG TABLET (FP) PO SCH (22:42)
[2020-09-22] MEDS: MONTELUKAST NA 10 MG TABLET PO SCH (22:42)
[2020-09-23] MEDS: ENOXAPARIN NA (PORCINE) 80 MG/0.8 ML DISP.SYRIN SQ SCH (05:57)
[2020-09-23] MEDS: ASCORBIC ACID 500 MG TABLET (FP) PO SCH (09:25)
[2020-09-23] MEDS: ZINC SULFATE 220 MG CAPSULE (FP) PO SCH (09:25)
[2020-09-23] MEDS: CHOLECALCIFEROL (VIT D3) 1,000 UNIT (25 MCG) TABLET PO SCH (09:25)
[2020-09-23] MEDS: amLODIPine BESYLATE 10 MG TABLET (FP) PO SCH (09:25)
[2020-09-23] MEDS: DEXAMETHASONE SOD PHOSPHATE 10 MG/1 ML VIAL IVPUSH SCH (09:25)
[2020-09-23] MEDS: FAMOTIDINE 20 MG/50 ML IVPB 20 MG/50 ML MG IVPB SCH (09:25)
[2020-09-23 10:07] LABS: HEMATOCRIT 39.6 % (32.4-45.2); MCH 27.1 pg (25.7-33.7); MCHC 32.8 g/dl (32.0-36.0); MEAN CELL VOLUME 82.5 fl (80-96); MEAN PLT VOLUME 8.6 fl (7.5-11.1); PLATELET COUNT 407 K/MM3 (134-434); RBC 4.79 M/mm3 (3.60-5.2); RDW 14.9 % (11.6-15.6); WHITE BLOOD COUNT 14.9 K/mm3 (4.0-10.0)
[2020-09-23 10:37] LABS: BLOOD UREA NITROGEN 19.4 mg/dL (7-18); CALCIUM 8.7 mg/dL (8.5-10.1)
[2020-09-23 10:38] LABS: ALBUMIN 3.1 g/dl (3.4-5.0); MAGNESIUM 2.3 mg/dL (1.8-2.4)
[2020-09-23 10:41] LABS: CREATININE 0.9 mg/dL (0.55-1.3); PHOSPHOROUS 2.8 mg/dL (2.5-4.9)
[2020-09-23 10:42] LABS: BILIRUBIN,TOTAL 0.4 mg/dL (0.2-1); TOT PROT 6.9 g/dl (6.4-8.2)
[2020-09-23 10:49] LABS: ERYTHROCYTE SEDIMENTATION RATE 36 mm/hr (0-30)
[2020-09-23] MEDS ORDERED: REMDESIVIR 100 MG in SODIUM CHLORIDE 230 ML IVPB SCH (13:00)
[2020-09-23 14:32] VITALS: BP 128/69; PULSE 72; TEMP 97.3
[2020-09-24] MEDS ORDERED: ENOXAPARIN NA (PORCINE) 40 MG/0.4 ML DISP.SYRIN SQ SCH (10:00)
== END 2020-09-23 16:50 | disposition home health service (06) | DRG 177 ==
LOC: JER 03:24 → JERBED 06:37 → J8W 20:36 → J6S 09-18 16:10
PROVIDERS: ATTEND Internal Medicine
PROC: XW033E5 Introduction of Remdesivir Anti-infective into Peripheral Vein, Percutaneous Approach, New Technology Group 5 (ICD-10-PCS; principal; 2020-09-20)
PROC: XW033F6 Introduction of Bamlanivimab Monoclonal Antibody into Peripheral Vein, Percutaneous Approach, New Technology Group 6 (ICD-10-PCS; 2020-09-20)
DX: U07.1 COVID-19 (principal); G93.41 Metabolic encephalopathy; J12.82 Pneumonia due to coronavirus disease 2019; I10 Essential (primary) hypertension; E78.5 Hyperlipidemia, unspecified; F03.90 Unspecified dementia, unspecified severity, without behavioral disturbance, psychotic disturbance, mood disturbance, and anxiety; I95.1 Orthostatic hypotension; N28.1 Cyst of kidney, acquired; R59.1 Generalized enlarged lymph nodes; R74.01 Elevation of levels of liver transaminase levels; R82.81 Pyuria; R42 Dizziness and giddiness; K21.9 Gastro-esophageal reflux disease without esophagitis
CPT/HCPCS: 36415; 70450-TC; 71045-TC-FY; 71250-TC; 74176-TC; 80048; 80053; 81003; 82248; 82550; 82553; 82728; 83605; 83615; 83690; 83735; 84100; 84484; 85025; 85027; 85379; 85610; 85651; 85730; 86140; 86850; 86900; 86901; 87040; 87086; 87804; 87899; 93005; 93010; 94761; 97116-GP; 97161-GP; 99285-25; C9399; C9803; J0131; J1100; M0239; Q0239; U0003

== ENCOUNTER 2021-04-20 16:51 | Observation (INO) | payer OTHER ==
[2021-04-20 19:59] LABS: EPI CELLS 25 /uL (0-25.1); HYALINE CASTS 21 /uL (0-3.1); URINE APPEARANCE CLEAR; URINE BACTERIA 78 /uL (0-1359); URINE BILIRUBIN NEGATIVE (NEGATIVE); URINE COLOR YELLOW; URINE GLUCOSE (UA) NEGATIVE (NEGATIVE); URINE KETONE TRACE (NEGATIVE); URINE LEUK ESTERASE 1+ (NEGATIVE); URINE NITRITE NEGATIVE (NEGATIVE); URINE PROTEIN TRACE (NEGATIVE); URINE RBC 19 /uL (0-23.9); URINE WBC 126 /uL (0-25.8)
[2021-04-20 20:50] LABS: BASO % 1.3 % (0-2.0); EOS % 2.9 % (0-4.5); HEMATOCRIT 35.4 % (32.4-45.2); HEMOGLOBIN 12.1 GM/dL (10.7-15.3); LYMPH % 22.2 % (8-40); MCH 29.1 pg (25.7-33.7); MCHC 34.2 g/dl (32.0-36.0); MEAN CELL VOLUME 85.1 fl (80-96); MEAN PLT VOLUME 7.6 fl (7.5-11.1); MONO % 9.2 % (3.8-10.2); NEUT % 64.4 % (42.8-82.8); PLATELET COUNT 287 10^3/uL (134-434); RBC 4.16 M/mm3 (3.60-5.2); RDW 15.8 % (11.6-15.6)
[2021-04-20 21:03] LABS: CHLORIDE 106 mmol/L (98-107); SODIUM 139 mmol/L (136-145)
[2021-04-20 21:06] LABS: ALBUMIN 3.9 g/dl (3.4-5.0); ANION GAP 7 MMOL/L (8-16); BLOOD UREA NITROGEN 17.8 mg/dL (7-18); CO2 26 mmol/L (21-32); GLUCOSE,RANDOM 90 mg/dL (74-106); MAGNESIUM 2.2 mg/dL (1.8-2.4)
[2021-04-20 21:10] LABS: CREATININE 0.9 mg/dL (0.55-1.3); PHOSPHOROUS 3.6 mg/dL (2.5-4.9); SGOT/AST 17 U/L (15-37); SGPT/ALT 25 U/L (13-61)
[2021-04-20 21:12] LABS: ALK PHOS 89 U/L (45-117); BILIRUBIN,TOTAL 0.4 mg/dL (0.2-1); TOT PROT 7.1 g/dl (6.4-8.2)
[2021-04-21] MEDS ORDERED: ACETAMINOPHEN 325 MG TABLET (FP) PO PRN ×2 (01:36→07:47)
[2021-04-21] MEDS ORDERED: SODIUM CHLORIDE 1,000 ML IV SCH (01:45)
[2021-04-21 06:44] LABS: BASO % 0.9 % (0-2.0); EOS % 3.5 % (0-4.5); HEMATOCRIT 35.7 % (32.4-45.2); HEMOGLOBIN 11.9 GM/dL (10.7-15.3); LYMPH % 21.8 % (8-40); MCH 28.4 pg (25.7-33.7); MCHC 33.3 g/dl (32.0-36.0); MEAN CELL VOLUME 85.3 fl (80-96); MEAN PLT VOLUME 8.1 fl (7.5-11.1); MONO % 8.9 % (3.8-10.2); NEUT % 64.9 % (42.8-82.8); PLATELET COUNT 268 10^3/uL (134-434); RBC 4.19 M/mm3 (3.60-5.2); RDW 15.4 % (11.6-15.6); WHITE BLOOD COUNT 9.4 K/mm3 (4.0-10.0)
[2021-04-21 07:14] LABS: BLOOD UREA NITROGEN 15.2 mg/dL (7-18); CALCIUM 8.8 mg/dL (8.5-10.1); CREATININE 0.8 mg/dL (0.55-1.3); MAGNESIUM 2.1 mg/dL (1.8-2.4); PHOSPHOROUS 3.8 mg/dL (2.5-4.9)
[2021-04-21] MEDS ORDERED: ALBUTEROL SO4 2.5/IPRATROPIUM 0.5 INH SOL 3 ML VIAL.NEB. NEB PRN (07:47)
[2021-04-21] MEDS ORDERED: ENOXAPARIN NA (PORCINE) 40 MG/0.4 ML DISP.SYRIN SQ SCH (10:00)
[2021-04-21] MEDS ORDERED: amLODIPine BESYLATE 5 MG TABLET (FP) PO SCH (10:00)
[2021-04-21 11:22] VITALS: BMI 29.0
[2021-04-21 15:10] VITALS: BP 130/67; PULSE 89; TEMP 98.1
[2021-04-21] MEDS ORDERED: MONTELUKAST NA 10 MG TABLET PO SCH (22:00)
[2021-04-21] MEDS ORDERED: DONEPEZIL HCL 5 MG TABLET (FP) PO SCH (22:00)
== END 2021-04-21 14:55 | disposition home or self-care (01) ==
LOC: JER 16:51 → INTOOBSV 23:21 → UNDOADMOB 23:21 → JERBED 23:21 → J5S 04-21 09:13 → JERBED 04-21 09:13 → J5S 04-21 10:38
PROVIDERS: ADMIT Internal Medicine; ATTEND Nurse Practitioner Acute Care
PROC: 3E023GC Introduction of Other Therapeutic Substance into Muscle, Percutaneous Approach (ICD-10-PCS; principal; 2021-04-21)
PROC: 3E03329 Introduction of Other Anti-infective into Peripheral Vein, Percutaneous Approach (ICD-10-PCS; 2021-04-21)
PROC: 3E0337Z Introduction of Electrolytic and Water Balance Substance into Peripheral Vein, Percutaneous Approach (ICD-10-PCS; 2021-04-21)
DX: G30.1 Alzheimer's disease with late onset (principal); F02.80 Dementia in other diseases classified elsewhere, unspecified severity, without behavioral disturbance, psychotic disturbance, mood disturbance, and anxiety; R22.0 Localized swelling, mass and lump, head; N30.00 Acute cystitis without hematuria; R51.9 Headache, unspecified; G92 Toxic encephalopathy; D49.6 Neoplasm of unspecified behavior of brain; I10 Essential (primary) hypertension; E78.5 Hyperlipidemia, unspecified; Z88.0 Allergy status to penicillin; Z86.16 Personal history of COVID-19; Z88.8 Allergy status to other drugs, medicaments and biological substances
CPT/HCPCS: 36415; 70450-TC; 72125-TC; 80048; 80053; 81003; 83735; 84100; 84484; 85025; 87086; 93005; 93010; 96361; 96365; 96372; 99285-25; C9803; G0378; U0003; U0005

== ENCOUNTER 2021-08-13 16:14 | Observation (INO) | payer OTHER ==
[2021-08-13 16:41] VITALS: BMI 24.2
[2021-08-13 20:52] LABS: BASO % 3.2 % (0-2.0); EOS % 7.5 % (0-4.5); HEMATOCRIT 38.7 % (32.4-45.2); HEMOGLOBIN 12.7 GM/dL (10.7-15.3); LYMPH % 13.7 % (8-40); MCH 29.1 pg (25.7-33.7); MCHC 32.9 g/dl (32.0-36.0); MEAN CELL VOLUME 88.5 fl (80-96); MEAN PLT VOLUME 8.6 fl (7.5-11.1); MONO % 6.4 % (3.8-10.2); NEUT % 69.2 % (42.8-82.8); PLATELET COUNT 291 10^3/uL (134-434); RBC 4.38 M/mm3 (3.60-5.2); RDW 14.3 % (11.6-15.6); WHITE BLOOD COUNT 9.7 K/mm3 (4.0-10.0)
[2021-08-13 21:07] LABS: CHLORIDE 111 mmol/L (98-107); SODIUM 144 mmol/L (136-145)
[2021-08-13 21:09] LABS: CALCIUM 9.3 mg/dL (8.5-10.1)
[2021-08-13 21:10] LABS: ALBUMIN 3.6 g/dl (3.4-5.0); ANION GAP 8 MMOL/L (8-16); BLOOD UREA NITROGEN 19.3 mg/dL (7-18); CO2 25 mmol/L (21-32); GLUCOSE,RANDOM 89 mg/dL (74-106); MAGNESIUM 2.4 mg/dL (1.8-2.4)
[2021-08-13 21:13] LABS: CREATININE 0.8 mg/dL (0.55-1.3); SGOT/AST 24 U/L (15-37); SGPT/ALT 18 U/L (13-61)
[2021-08-13 21:15] LABS: BILIRUBIN,TOTAL 0.5 mg/dL (0.2-1); TOT PROT 7.4 g/dl (6.4-8.2)
[2021-08-13 21:16] LABS: ALK PHOS 96 U/L (45-117)
[2021-08-13] MEDS ORDERED: SODIUM CHLORIDE 0.9% 500 ML INFUS.BAG IV ONE (21:48)
[2021-08-13 23:48] LABS: URINE APPEARANCE Clear; URINE BILIRUBIN Negative (NEGATIVE); URINE COLOR Yellow; URINE GLUCOSE (UA) Negative (NEGATIVE); URINE KETONE Negative (NEGATIVE); URINE LEUK ESTERASE 1+ (NEGATIVE); URINE NITRITE Negative (NEGATIVE); URINE PROTEIN Negative (NEGATIVE); URINE UROBILINOGEN 0.2 mg/dL (0.2-1.0)
[2021-08-14 00:11] LABS: EPI CELLS 15 /uL (0-25.1); HYALINE CASTS 4 /uL (0-3.1); URINE BACTERIA 45 /uL (0-1359); URINE RBC 11 /uL (0-23.9); URINE WBC 269 /uL (0-25.8)
[2021-08-14] MEDS ORDERED: NITROFURANTOIN MACROCRYSTAL 50 MG CAPSULE (FP) PO ONE (00:30)
[2021-08-14] MEDS ORDERED: NITROFURANTOIN MACROCRYSTAL 50 MG CAPSULE (FP) ONE (00:38)
[2021-08-14] MEDS ORDERED: amLODIPine BESYLATE 5 MG TABLET (FP) PO ONE (02:27)
[2021-08-14] MEDS ORDERED: amLODIPine BESYLATE 5 MG TABLET (FP) ONE (03:46)
[2021-08-14 08:16] LABS: BASO % 1.1 % (0-2.0); EOS % 3.7 % (0-4.5); HEMATOCRIT 33.6 % (32.4-45.2); HEMOGLOBIN 11.3 GM/dL (10.7-15.3); LYMPH % 23.5 % (8-40); MCH 29.2 pg (25.7-33.7); MCHC 33.6 g/dl (32.0-36.0); MEAN CELL VOLUME 86.9 fl (80-96); MEAN PLT VOLUME 7.9 fl (7.5-11.1); NEUT % 61.7 % (42.8-82.8); PLATELET COUNT 224 10^3/uL (134-434); RBC 3.87 M/mm3 (3.60-5.2); WHITE BLOOD COUNT 9.5 K/mm3 (4.0-10.0)
[2021-08-14 08:34] LABS: CALCIUM 8.7 mg/dL (8.5-10.1)
[2021-08-14 08:35] LABS: ALBUMIN 3.4 g/dl (3.4-5.0); BLOOD UREA NITROGEN 16.8 mg/dL (7-18); MAGNESIUM 2.3 mg/dL (1.8-2.4)
[2021-08-14 08:37] LABS: CREATININE 0.7 mg/dL (0.55-1.3); PHOSPHOROUS 3.6 mg/dL (2.5-4.9)
[2021-08-14 08:39] LABS: BILIRUBIN,TOTAL 0.4 mg/dL (0.2-1); TOT PROT 6.4 g/dl (6.4-8.2)
[2021-08-14] MEDS ORDERED: ENOXAPARIN NA (PORCINE) 40 MG/0.4 ML DISP.SYRIN SQ SCH (10:00)
[2021-08-14] MEDS ORDERED: CEFTRIAXONE 1 GM/50 ML BAG ONE (10:00)
[2021-08-14] MEDS ORDERED: NITROFURANTOIN MACROCRYSTAL 50 MG CAPSULE (FP) PO SCH ×2 (10:00→22:00)
[2021-08-14] MEDS ORDERED: ENOXAPARIN NA (PORCINE) 40 MG/0.4 ML DISP.SYRIN SQ ONE (10:00)
[2021-08-14] MEDS ORDERED: CEFTRIAXONE 1 GM in DEXTROSE 5%-WATER - 50 ML IVPB SCH (10:00)
[2021-08-14] MEDS ORDERED: HYDROCHLOROTHIAZIDE 12.5 MG CAPSULE (FP) PO SCH (14:30)
[2021-08-14 19:50] VITALS: BP 165/73; PULSE 74; TEMP 98.3
[2021-08-14] MEDS ORDERED: DONEPEZIL HCL 5 MG TABLET (FP) PO SCH (22:00)
[2021-08-15] MEDS ORDERED: amLODIPine BESYLATE 10 MG TABLET (FP) PO SCH (10:00)
== END 2021-08-14 18:31 | disposition home or self-care (01) ==
LOC: JER 16:14 → JERBED 08-14 00:27 → UNDOADMOB 08-14 00:27 → OBSVTOIN 08-14 02:29 → INTOOBSV 08-14 02:29 → JERBED 08-14 02:29 → J5S 08-14 11:11
PROVIDERS: ADMIT Internal Medicine
PROC: 3E03329 Introduction of Other Anti-infective into Peripheral Vein, Percutaneous Approach (ICD-10-PCS; principal; 2021-08-14)
PROC: 3E023GC Introduction of Other Therapeutic Substance into Muscle, Percutaneous Approach (ICD-10-PCS; 2021-08-14)
PROC: 3E0337Z Introduction of Electrolytic and Water Balance Substance into Peripheral Vein, Percutaneous Approach (ICD-10-PCS; 2021-08-14)
DX: N39.0 Urinary tract infection, site not specified (principal); G30.9 Alzheimer's disease, unspecified; F02.80 Dementia in other diseases classified elsewhere, unspecified severity, without behavioral disturbance, psychotic disturbance, mood disturbance, and anxiety; Z86.16 Personal history of COVID-19; K21.9 Gastro-esophageal reflux disease without esophagitis; I10 Essential (primary) hypertension; Z96.653 Presence of artificial knee joint, bilateral; E78.5 Hyperlipidemia, unspecified; G93.0 Cerebral cysts; Z88.0 Allergy status to penicillin; Z88.8 Allergy status to other drugs, medicaments and biological substances
CPT/HCPCS: 36415; 70450-TC; 80053; 81003; 83735; 84100; 84484; 85025; 87086; 93005; 93010; 96365; 96372; 97116-GP; 97161-GP; 99285-25; C9803; G0378; U0003; U0005

== ENCOUNTER 2021-10-16 19:43 | Observation (INO) | payer OTHER ==
[2021-10-17 08:24] VITALS: BMI 25.7
[2021-10-17 09:42] LABS: HEMATOCRIT 32.2 % (32.4-45.2); HEMOGLOBIN 10.5 GM/dL (10.7-15.3); MCH 28.8 pg (25.7-33.7); MCHC 32.7 g/dl (32.0-36.0); MEAN CELL VOLUME 88.3 fl (80-96); MEAN PLT VOLUME 8.2 fl (7.5-11.1); PLATELET COUNT 223 10^3/uL (134-434); RBC 3.65 M/mm3 (3.60-5.2); RDW 14.3 % (11.6-15.6); WHITE BLOOD COUNT 8.3 K/mm3 (4.0-10.0)
[2021-10-17 09:50] LABS: INR 1.05 (0.83-1.09); PROTHROMBIN TIME (PATIENT) 12.1 SEC (9.7-13.0)
[2021-10-17 09:51] LABS: ACTIVATED PTT 20.1 SECONDS (25.2-36.5)
[2021-10-17 10:05] LABS: ALBUMIN 3.4 g/dl (3.4-5.0); BLOOD UREA NITROGEN 18.4 mg/dL (7-18); MAGNESIUM 2.1 mg/dL (1.8-2.4)
[2021-10-17 10:08] LABS: CREATININE 0.7 mg/dL (0.55-1.3); PHOSPHOROUS 3.4 mg/dL (2.5-4.9)
[2021-10-17 10:09] LABS: BILIRUBIN,TOTAL 1.1 mg/dL (0.2-1); TOT PROT 6.2 g/dl (6.4-8.2)
[2021-10-17] MEDS ORDERED: ACETAMINOPHEN 325 MG TABLET (FP) PO PRN (14:38)
[2021-10-17 16:29] LABS: EPI CELLS 2 /uL (0-25.1); HYALINE CASTS 0 /uL (0-3.1); PH,URINE 5.5 (5.0-8.0); URINE APPEARANCE CLEAR; URINE BACTERIA 13 /uL (0-1359); URINE BILIRUBIN NEGATIVE (NEGATIVE); URINE COLOR YELLOW; URINE GLUCOSE (UA) NEGATIVE (NEGATIVE); URINE KETONE NEGATIVE (NEGATIVE); URINE LEUK ESTERASE TRACE (NEGATIVE); URINE NITRITE NEGATIVE (NEGATIVE); URINE PROTEIN NEGATIVE (NEGATIVE); URINE RBC 11 /uL (0-23.9); URINE UROBILINOGEN 0.2 mg/dL (0.2-1.0); URINE WBC 5 /uL (0-25.8)
[2021-10-17] MEDS: HEPARIN NA (PORCINE) 5,000 UNITS/ML 1ML VIAL SQ SCH (21:16)
[2021-10-17] MEDS: MELATONIN 5 MG TABLETS PO PRN (21:16)
[2021-10-17] MEDS: DONEPEZIL HCL 5 MG TABLET (FP) PO SCH (21:17)
[2021-10-18] MEDS: HEPARIN NA (PORCINE) 5,000 UNITS/ML 1ML VIAL SQ SCH ×3 (05:43→21:17)
[2021-10-18 09:49] LABS: BASO % 0.8 % (0-2.0); EOS % 4.4 % (0-4.5); HEMOGLOBIN 11.9 GM/dL (10.7-15.3); LYMPH % 27.6 % (8-40); MCH 28.4 pg (25.7-33.7); MCHC 32.3 g/dl (32.0-36.0); MEAN PLT VOLUME 8.4 fl (7.5-11.1); MONO % 7.4 % (3.8-10.2); NEUT % 59.8 % (42.8-82.8); PLATELET COUNT 247 10^3/uL (134-434); RDW 14.5 % (11.6-15.6); WHITE BLOOD COUNT 6.8 K/mm3 (4.0-10.0)
[2021-10-18 10:04] LABS: CALCIUM 9.8 mg/dL (8.5-10.1)
[2021-10-18 10:05] LABS: BLOOD UREA NITROGEN 17.1 mg/dL (7-18)
[2021-10-18 10:08] LABS: CREATININE 0.9 mg/dL (0.55-1.3)
[2021-10-18] MEDS: MELATONIN 5 MG TABLETS PO PRN (21:17)
[2021-10-18] MEDS: DONEPEZIL HCL 5 MG TABLET (FP) PO SCH (21:17)
[2021-10-19] MEDS ORDERED: LORazepam 0.5 MG TABLET PO ONE (01:05)
[2021-10-19] MEDS ORDERED: MELATONIN 5 MG TABLETS PO ONE (01:05)
[2021-10-19] MEDS: HEPARIN NA (PORCINE) 5,000 UNITS/ML 1ML VIAL SQ SCH ×2 (05:49→16:46)
[2021-10-19 11:50] VITALS: BP 134/85; PULSE 88; TEMP 97.9
== END 2021-10-19 16:52 | disposition home or self-care (01) ==
LOC: JER 19:43 → UNDOADMOB 10-17 01:23 → JERBED 10-17 01:23 → INTOOBSV 10-17 01:23 → JERBED 10-17 02:31 → J6S 10-17 06:23
PROVIDERS: ADMIT Hospitalist
DX: G30.9 Alzheimer's disease, unspecified (principal); W18.39XA Other fall on same level, initial encounter; Y93.89 Activity, other specified; Y92.89 Other specified places as the place of occurrence of the external cause; I10 Essential (primary) hypertension; Z29.9 Encounter for prophylactic measures, unspecified; E78.5 Hyperlipidemia, unspecified; R22.9 Localized swelling, mass and lump, unspecified; Z86.16 Personal history of COVID-19; D32.9 Benign neoplasm of meninges, unspecified; Z88.8 Allergy status to other drugs, medicaments and biological substances; Z88.0 Allergy status to penicillin
CPT/HCPCS: 36415; 70450-TC; 71046-TC-FY; 72125-TC; 73110-TC-RT-FY; 73130-TC-RT-FY; 80048; 80053; 81003; 82550; 82553; 82607; 82746; 83735; 84100; 85025; 85027; 85610; 85730; 87086; 97116-GP; 97162-GP; 99285-25; C9803; G0378; J1644; U0003; U0005

== ENCOUNTER 2022-05-20 20:47 | Observation (INO) | payer OTHER ==
[2022-05-20 21:12] VITALS: TEMP 98.1; BMI 32.3
[2022-05-20] MEDS ORDERED: LIDOCAINE 5% TOPICAL PATCH TP ONE (21:31)
[2022-05-20] MEDS ORDERED: ACETAMINOPHEN 325 MG TABLET (FP) PO ONE (21:31)
[2022-05-20] MEDS ORDERED: LIDOCAINE PATCH REMOVAL MC ONE (22:00)
[2022-05-20 23:27] LABS: EPI CELLS 6 /uL (0-25.1); HYALINE CASTS 0 /uL (0-3.1); URINE APPEARANCE CLEAR; URINE BACTERIA 11 /uL (0-1359); URINE BILIRUBIN NEGATIVE (NEGATIVE); URINE COLOR YELLOW; URINE GLUCOSE (UA) NEGATIVE (NEGATIVE); URINE KETONE NEGATIVE (NEGATIVE); URINE LEUK ESTERASE 1+ (NEGATIVE); URINE NITRITE NEGATIVE (NEGATIVE); URINE PROTEIN NEGATIVE (NEGATIVE); URINE RBC 49 /uL (0-23.9); URINE WBC 16 /uL (0-25.8)
[2022-05-21 00:38] LABS: BASO % 0.7 % (0-2.0); EOS % 4.2 % (0-4.5); HEMATOCRIT 34.9 % (32.4-45.2); HEMOGLOBIN 11.9 GM/dL (10.7-15.3); LYMPH % 22.3 % (8-40); MCH 29.4 pg (25.7-33.7); MCHC 34.2 g/dl (32.0-36.0); MEAN CELL VOLUME 86.1 fl (80-96); MEAN PLT VOLUME 7.2 fl (7.5-11.1); MONO % 9.6 % (3.8-10.2); NEUT % 63.2 % (42.8-82.8); PLATELET COUNT 240 10^3/uL (134-434); RBC 4.05 M/mm3 (3.60-5.2); RDW 13.9 % (11.6-15.6); WHITE BLOOD COUNT 9.6 K/mm3 (4.0-10.0)
[2022-05-21 01:00] LABS: CALCIUM 9.4 mg/dL (8.5-10.1)
[2022-05-21 01:01] LABS: ALBUMIN 3.8 g/dl (3.4-5.0); BLOOD UREA NITROGEN 17.5 mg/dL (7-18)
[2022-05-21 01:04] LABS: CREATININE 0.9 mg/dL (0.55-1.3)
[2022-05-21 01:05] LABS: BILIRUBIN,TOTAL 0.5 mg/dL (0.2-1); TOT PROT 7.1 g/dl (6.4-8.2)
[2022-05-21] MEDS ORDERED: ACETAMINOPHEN 325 MG TABLET (FP) ONE (01:27)
[2022-05-21] MEDS ORDERED: LIDOCAINE 5% TOPICAL PATCH ONE (01:27)
[2022-05-21] MEDS ORDERED: HYDROCHLOROTHIAZIDE 12.5 MG CAPSULE (FP) PO SCH (07:00)
[2022-05-21] MEDS ORDERED: HYDROCHLOROTHIAZIDE 25 MG TABLET (FP) ONE (07:14)
[2022-05-21] MEDS ORDERED: hydrALAZINE HCL 50 MG TABLET (FP) ONE (08:31)
[2022-05-21] MEDS ORDERED: ENOXAPARIN NA (PORCINE) 40 MG/0.4 ML DISP.SYRIN SQ ONE (08:31)
[2022-05-21 08:32] VITALS: RESP 16
[2022-05-21] MEDS ORDERED: ACETAMINOPHEN 325 MG TABLET (FP) PO PRN (09:18)
[2022-05-21] MEDS ORDERED: ENOXAPARIN NA (PORCINE) 40 MG/0.4 ML DISP.SYRIN SQ SCH (10:00)
[2022-05-21] MEDS ORDERED: hydrALAZINE HCL 50 MG TABLET (FP) PO SCH (10:00)
[2022-05-21] MEDS ORDERED: LIDOCAINE 5% TOPICAL PATCH TP SCH (10:00)
[2022-05-21 11:22] LABS: EOS % 3.7 % (0-4.5); HEMATOCRIT 37.6 % (32.4-45.2); HEMOGLOBIN 12.7 GM/dL (10.7-15.3); LYMPH % 20.2 % (8-40); MCH 29.3 pg (25.7-33.7); MCHC 33.8 g/dl (32.0-36.0); MEAN CELL VOLUME 86.8 fl (80-96); MONO % 9.7 % (3.8-10.2); NEUT % 65.4 % (42.8-82.8); PLATELET COUNT 233 10^3/uL (134-434); RBC 4.33 M/mm3 (3.60-5.2); RDW 13.8 % (11.6-15.6); WHITE BLOOD COUNT 9.3 K/mm3 (4.0-10.0)
[2022-05-21 11:48] LABS: BLOOD UREA NITROGEN 12.6 mg/dL (7-18); CALCIUM 9.3 mg/dL (8.5-10.1); MAGNESIUM 2.2 mg/dL (1.8-2.4)
[2022-05-21 11:49] LABS: ALBUMIN 3.6 g/dl (3.4-5.0)
[2022-05-21 11:51] LABS: PHOSPHOROUS 3.4 mg/dL (2.5-4.9)
[2022-05-21 11:52] LABS: CREATININE 0.7 mg/dL (0.55-1.3)
[2022-05-21 11:53] LABS: BILIRUBIN,TOTAL 0.7 mg/dL (0.2-1)
[2022-05-21 14:00] VITALS: BP 147/54; PULSE 76
[2022-05-21] MEDS ORDERED: LIDOCAINE PATCH REMOVAL MC SCH (22:00)
== END 2022-05-21 16:25 | disposition home or self-care (01) ==
LOC: JER 20:47 → JERBED 21:36
PROVIDERS: ADMIT Internal Medicine; ATTEND Internal Medicine
PROC: 3E013GC Introduction of Other Therapeutic Substance into Subcutaneous Tissue, Percutaneous Approach (ICD-10-PCS; principal; 2022-05-20)
DX: R26.2 Difficulty in walking, not elsewhere classified (principal); M54.9 Dorsalgia, unspecified; N39.0 Urinary tract infection, site not specified; I10 Essential (primary) hypertension; G30.9 Alzheimer's disease, unspecified; F02.80 Dementia in other diseases classified elsewhere, unspecified severity, without behavioral disturbance, psychotic disturbance, mood disturbance, and anxiety; E78.5 Hyperlipidemia, unspecified; I45.10 Unspecified right bundle-branch block; R60.0 Localized edema; Z20.7 Contact with and (suspected) exposure to pediculosis, acariasis and other infestations; Z88.0 Allergy status to penicillin; Z88.8 Allergy status to other drugs, medicaments and biological substances; Z96.653 Presence of artificial knee joint, bilateral; Z86.16 Personal history of COVID-19
CPT/HCPCS: 36415; 70450-TC; 71045-TC-FY; 72125-TC; 72131-TC; 72170-TC-FY; 76937; 80053; 81003; 83735; 84100; 85025; 87086; 93005; 93010; 97116-GP; 97162-GP; 99285-25; C9803-CS; G0378; U0003; U0005

== ENCOUNTER 2022-08-04 08:54 | Emergency (ER) | payer OTHER ==
[2022-08-04] MEDS ORDERED: ACETAMINOPHEN 325 MG TABLET (FP) PO ONE (09:30)
[2022-08-04 09:34] VITALS: RESP 18; TEMP 98; BMI 29.7
[2022-08-04] MEDS ORDERED: ACETAMINOPHEN 325 MG TABLET (FP) ONE (10:13)
[2022-08-04 10:51] LABS: PH,URINE 6.5 (5.0-8.0); URINE APPEARANCE CLEAR; URINE BILIRUBIN NEGATIVE (NEGATIVE); URINE COLOR YELLOW; URINE GLUCOSE (UA) NEGATIVE (NEGATIVE); URINE KETONE NEGATIVE (NEGATIVE); URINE LEUK ESTERASE NEGATIVE (NEGATIVE); URINE NITRITE NEGATIVE (NEGATIVE); URINE PROTEIN NEGATIVE (NEGATIVE); URINE UROBILINOGEN 0.2 mg/dL (0.2-1.0)
[2022-08-04 10:56] LABS: HEMOGLOBIN 12.3 GM/dL (10.7-15.3); MCH 28.3 pg (25.7-33.7); MCHC 32.4 g/dl (32.0-36.0); MEAN CELL VOLUME 87.5 fl (80-96); PLATELET COUNT 250 10^3/uL (134-434); RBC 4.35 M/mm3 (3.60-5.2); RDW 14.8 % (11.6-15.6)
[2022-08-04 11:24] LABS: ALBUMIN 3.6 g/dl (3.4-5.0); CALCIUM 9.3 mg/dL (8.5-10.1)
[2022-08-04 11:25] LABS: BLOOD UREA NITROGEN 14.8 mg/dL (7-18)
[2022-08-04 11:28] LABS: CREATININE 0.9 mg/dL (0.55-1.3)
[2022-08-04 11:29] LABS: BILIRUBIN,TOTAL 1.1 mg/dL (0.2-1)
[2022-08-04 17:42] VITALS: BP 165/66; PULSE 67
== END 2022-08-04 17:00 | disposition home or self-care (01) ==
LOC: JER 08:54
DX: M54.50 Low back pain, unspecified (principal); W01.0XXA Fall on same level from slipping, tripping and stumbling without subsequent striking against object, initial encounter
CPT/HCPCS: 36415; 70450-TC; 71045-TC-FY; 72125-TC; 72131-TC; 72170-TC-FY; 80053; 81003; 82550; 82553; 82962; 84484; 85027; 87086; 93005; 93010; 99285-25

== ENCOUNTER 2022-08-06 14:48 | Observation (INO) | payer OTHER ==
[2022-08-06] MEDS ORDERED: SODIUM CHLORIDE 500 ML IV STA ×2 (17:45→20:50)
[2022-08-06] MEDS ORDERED: ACETAMINOPHEN 1000 MG/100 ML BAG IVPB ONE (17:45)
[2022-08-06] MEDS ORDERED: ACETAMINOPHEN INJECTION 100 ML IVPB ONE (18:20)
[2022-08-06 18:38] LABS: BASO % 0.5 % (0-2.0); EOS % 0.6 % (0-4.5); HEMOGLOBIN 12.5 GM/dL (10.7-15.3); LYMPH % 8.4 % (8-40); MCH 28.3 pg (25.7-33.7); MEAN CELL VOLUME 85.9 fl (80-96); MEAN PLT VOLUME 9.6 fl (7.5-11.1); MONO % 10.3 % (3.8-10.2); NEUT % 80.2 % (42.8-82.8); PLATELET COUNT 346 10^3/uL (134-434); RBC 4.42 M/mm3 (3.60-5.2); RDW 15.1 % (11.6-15.6)
[2022-08-06 18:46] LABS: INR 1.17 (0.83-1.09); PROTHROMBIN TIME (PATIENT) 13.5 SEC (9.7-13.0)
[2022-08-06 18:49] LABS: ACTIVATED PTT 25.5 SECONDS (25.2-36.5)
[2022-08-06 18:52] LABS: CHLORIDE 105 mmol/L (98-107); SODIUM 138 mmol/L (136-145)
[2022-08-06 18:54] LABS: CALCIUM 9.1 mg/dL (8.5-10.1)
[2022-08-06 18:55] LABS: BLOOD UREA NITROGEN 14.4 mg/dL (7-18); CO2 25 mmol/L (21-32); GLUCOSE,RANDOM 107 mg/dL (74-106)
[2022-08-06 18:58] LABS: CREATININE 0.8 mg/dL (0.55-1.3); SGOT/AST 88 U/L (15-37); SGPT/ALT 22 U/L (13-61)
[2022-08-06 18:59] LABS: BILIRUBIN,TOTAL 1.1 mg/dL (0.2-1)
[2022-08-06 19:01] LABS: ALK PHOS 68 U/L (45-117)
[2022-08-06 19:17] LABS: ANION GAP 8 MMOL/L (8-16)
[2022-08-06 19:50] LABS: EPI CELLS 33 /uL (0-25.1); HYALINE CASTS 5 /uL (0-3.1); PH,URINE 6.5 (5.0-8.0); URINE APPEARANCE CLEAR; URINE BACTERIA 2409 /uL (0-1359); URINE BILIRUBIN NEGATIVE (NEGATIVE); URINE COLOR YELLOW; URINE GLUCOSE (UA) NEGATIVE (NEGATIVE); URINE KETONE 1+ (NEGATIVE); URINE LEUK ESTERASE TRACE (NEGATIVE); URINE NITRITE NEGATIVE (NEGATIVE); URINE PROTEIN NEGATIVE (NEGATIVE); URINE WBC 69 /uL (0-25.8)
[2022-08-06] MEDS ORDERED: CEFTRIAXONE 1 GM in DEXTROSE 5%-WATER - 100 ML IVPB ONE (20:50)
[2022-08-06 21:53] LABS: CHLORIDE 106 mmol/L (98-107); SODIUM 139 mmol/L (136-145)
[2022-08-06 21:54] LABS: CALCIUM 8.5 mg/dL (8.5-10.1)
[2022-08-06 21:55] LABS: BLOOD UREA NITROGEN 12.8 mg/dL (7-18); CO2 25 mmol/L (21-32); GLUCOSE,RANDOM 104 mg/dL (74-106)
[2022-08-06 21:58] LABS: CREATININE 0.8 mg/dL (0.55-1.3)
[2022-08-06 22:06] LABS: ANION GAP 8 MMOL/L (8-16)
[2022-08-06] MEDS ORDERED: CEFTRIAXONE 1 GM/50 ML BAG ONE (22:35)
[2022-08-06] MEDS ORDERED: SODIUM CHLORIDE 1,000 ML IV SCH (22:45)
[2022-08-06 22:56] LABS: URINE RBC 19 /uL (0-23.9)
[2022-08-06] MEDS ORDERED: SODIUM CHLORIDE 1,000 ML IV STA (23:03)
[2022-08-07 03:44] VITALS: BMI 37.8
[2022-08-07] MEDS ORDERED: SODIUM CHLORIDE 1,000 ML IV SCH (06:15)
[2022-08-07] MEDS: amLODIPine BESYLATE 10 MG TABLET (FP) PO SCH (11:07)
[2022-08-07] MEDS: FAMOTIDINE 20 MG TABLET PO SCH ×2 (11:08→21:39)
[2022-08-07] MEDS: CEFTRIAXONE 1 GM in DEXTROSE 5%-WATER - 50 ML IVPB SCH (11:08)
[2022-08-07] MEDS: ENOXAPARIN NA (PORCINE) 40 MG/0.4 ML DISP.SYRIN SQ SCH (11:10)
[2022-08-07 12:11] LABS: HEMOGLOBIN 11.4 GM/dL (10.7-15.3); MCH 28.3 pg (25.7-33.7); MCHC 32.5 g/dl (32.0-36.0); MEAN CELL VOLUME 87.1 fl (80-96); MEAN PLT VOLUME 8.2 fl (7.5-11.1); PLATELET COUNT 238 10^3/uL (134-434); RBC 4.01 M/mm3 (3.60-5.2); RDW 14.2 % (11.6-15.6)
[2022-08-07 12:37] LABS: ALBUMIN 2.6 g/dl (3.4-5.0); BLOOD UREA NITROGEN 14.2 mg/dL (7-18); CALCIUM 8.6 mg/dL (8.5-10.1); MAGNESIUM 2.1 mg/dL (1.8-2.4)
[2022-08-07 12:40] LABS: CREATININE 0.8 mg/dL (0.55-1.3); PHOSPHOROUS 1.9 mg/dL (2.5-4.9)
[2022-08-07 12:42] LABS: BILIRUBIN,TOTAL 0.8 mg/dL (0.2-1); TOT PROT 5.9 g/dl (6.4-8.2)
[2022-08-07] MEDS: DONEPEZIL HCL 5 MG TABLET (FP) PO SCH (21:39)
[2022-08-07] MEDS: ROSUVASTATIN CA 10 MG TABLET PO SCH (21:39)
[2022-08-07] MEDS ORDERED: ACETAMINOPHEN 325 MG TABLET (FP) PO ONE (21:40)
[2022-08-08] MEDS: FAMOTIDINE 20 MG TABLET PO SCH ×2 (12:06→22:44)
[2022-08-08] MEDS: CEFTRIAXONE 1 GM in DEXTROSE 5%-WATER - 50 ML IVPB SCH (12:06)
[2022-08-08] MEDS: amLODIPine BESYLATE 10 MG TABLET (FP) PO SCH (12:06)
[2022-08-08] MEDS: ENOXAPARIN NA (PORCINE) 40 MG/0.4 ML DISP.SYRIN SQ SCH (12:06)
[2022-08-08] MEDS: ROSUVASTATIN CA 10 MG TABLET PO SCH (22:44)
[2022-08-08] MEDS: DONEPEZIL HCL 5 MG TABLET (FP) PO SCH (22:44)
[2022-08-09 13:27] LABS: BASO % 1.1 % (0-2.0); EOS % 1.8 % (0-4.5); HEMATOCRIT 34.1 % (32.4-45.2); HEMOGLOBIN 11.2 GM/dL (10.7-15.3); LYMPH % 9.3 % (8-40); MCH 28.4 pg (25.7-33.7); MEAN CELL VOLUME 86.1 fl (80-96); MEAN PLT VOLUME 8.3 fl (7.5-11.1); NEUT % 72.8 % (42.8-82.8); PLATELET COUNT 279 10^3/uL (134-434); RBC 3.95 M/mm3 (3.60-5.2); RDW 14.5 % (11.6-15.6); WHITE BLOOD COUNT 13.8 K/mm3 (4.0-10.0)
[2022-08-09 13:49] LABS: CALCIUM 8.7 mg/dL (8.5-10.1)
[2022-08-09 13:50] LABS: BLOOD UREA NITROGEN 19.6 mg/dL (7-18)
[2022-08-09 13:53] LABS: CREATININE 0.7 mg/dL (0.55-1.3)
[2022-08-09] MEDS: ENOXAPARIN NA (PORCINE) 40 MG/0.4 ML DISP.SYRIN SQ SCH (14:43)
[2022-08-09] MEDS: CEFTRIAXONE 1 GM in DEXTROSE 5%-WATER - 50 ML IVPB SCH (14:44)
[2022-08-09] MEDS: FAMOTIDINE 20 MG TABLET PO SCH ×2 (14:44→21:44)
[2022-08-09] MEDS: amLODIPine BESYLATE 10 MG TABLET (FP) PO SCH (14:44)
[2022-08-09] MEDS: DONEPEZIL HCL 5 MG TABLET (FP) PO SCH (21:44)
[2022-08-09] MEDS: ROSUVASTATIN CA 10 MG TABLET PO SCH (21:44)
[2022-08-10] MEDS: amLODIPine BESYLATE 10 MG TABLET (FP) PO SCH (09:13)
[2022-08-10] MEDS: ENOXAPARIN NA (PORCINE) 40 MG/0.4 ML DISP.SYRIN SQ SCH (09:13)
[2022-08-10] MEDS: FAMOTIDINE 20 MG TABLET PO SCH ×2 (09:13→21:45)
[2022-08-10] MEDS: CEFTRIAXONE 1 GM in DEXTROSE 5%-WATER - 50 ML IVPB SCH (09:14)
[2022-08-10 09:28] LABS: BASO % 0.9 % (0-2.0); EOS % 2.1 % (0-4.5); HEMATOCRIT 34.1 % (32.4-45.2); HEMOGLOBIN 11.1 GM/dL (10.7-15.3); LYMPH % 10.1 % (8-40); MCHC 32.4 g/dl (32.0-36.0); MEAN CELL VOLUME 86.3 fl (80-96); MEAN PLT VOLUME 8.5 fl (7.5-11.1); MONO % 13.3 % (3.8-10.2); NEUT % 73.6 % (42.8-82.8); PLATELET COUNT 290 10^3/uL (134-434); RBC 3.95 M/mm3 (3.60-5.2); RDW 14.2 % (11.6-15.6); WHITE BLOOD COUNT 11.7 K/mm3 (4.0-10.0)
[2022-08-10 09:38] LABS: CALCIUM 8.4 mg/dL (8.5-10.1)
[2022-08-10 09:39] LABS: MAGNESIUM 2.3 mg/dL (1.8-2.4)
[2022-08-10 09:42] LABS: CREATININE 0.7 mg/dL (0.55-1.3); PHOSPHOROUS 3.2 mg/dL (2.5-4.9)
[2022-08-10] MEDS: ROSUVASTATIN CA 10 MG TABLET PO SCH (21:45)
[2022-08-10] MEDS: DOXYCYCLINE HYCLATE 100 MG CAPSULE PO SCH (21:45)
[2022-08-10] MEDS: DONEPEZIL HCL 5 MG TABLET (FP) PO SCH (21:45)
[2022-08-11] MEDS: FAMOTIDINE 20 MG TABLET PO SCH ×2 (09:32→21:53)
[2022-08-11] MEDS: amLODIPine BESYLATE 10 MG TABLET (FP) PO SCH (09:32)
[2022-08-11] MEDS: DOXYCYCLINE HYCLATE 100 MG CAPSULE PO SCH ×2 (09:32→17:26)
[2022-08-11] MEDS: ENOXAPARIN NA (PORCINE) 40 MG/0.4 ML DISP.SYRIN SQ SCH (09:33)
[2022-08-11 10:18] LABS: BASO % 0.8 % (0-2.0); EOS % 2.1 % (0-4.5); HEMOGLOBIN 11.2 GM/dL (10.7-15.3); LYMPH % 8.1 % (8-40); MCH 28.3 pg (25.7-33.7); MEAN CELL VOLUME 85.8 fl (80-96); MEAN PLT VOLUME 8.4 fl (7.5-11.1); MONO % 11.2 % (3.8-10.2); NEUT % 77.8 % (42.8-82.8); PLATELET COUNT 323 10^3/uL (134-434); RBC 3.96 M/mm3 (3.60-5.2); RDW 14.2 % (11.6-15.6); WHITE BLOOD COUNT 13.2 K/mm3 (4.0-10.0)
[2022-08-11 10:26] LABS: CALCIUM 8.7 mg/dL (8.5-10.1)
[2022-08-11 10:27] LABS: BLOOD UREA NITROGEN 15.8 mg/dL (7-18)
[2022-08-11 10:30] LABS: CREATININE 0.6 mg/dL (0.55-1.3)
[2022-08-11] MEDS: ROSUVASTATIN CA 10 MG TABLET PO SCH (21:52)
[2022-08-11] MEDS: DONEPEZIL HCL 5 MG TABLET (FP) PO SCH (21:53)
[2022-08-12 09:42] LABS: BASO % 0.6 % (0-2.0); EOS % 3.2 % (0-4.5); HEMATOCRIT 32.9 % (32.4-45.2); HEMOGLOBIN 11.2 GM/dL (10.7-15.3); LYMPH % 12.4 % (8-40); MCH 29.3 pg (25.7-33.7); MCHC 34.1 g/dl (32.0-36.0); MEAN CELL VOLUME 85.9 fl (80-96); MEAN PLT VOLUME 7.7 fl (7.5-11.1); NEUT % 71.8 % (42.8-82.8); PLATELET COUNT 323 10^3/uL (134-434); RBC 3.83 M/mm3 (3.60-5.2); RDW 14.2 % (11.6-15.6); WHITE BLOOD COUNT 10.6 K/mm3 (4.0-10.0)
[2022-08-12 09:55] LABS: CALCIUM 8.7 mg/dL (8.5-10.1)
[2022-08-12 09:56] LABS: BLOOD UREA NITROGEN 16.7 mg/dL (7-18)
[2022-08-12 09:59] LABS: CREATININE 0.6 mg/dL (0.55-1.3)
[2022-08-12] MEDS: FAMOTIDINE 20 MG TABLET PO SCH ×2 (11:12→21:05)
[2022-08-12] MEDS: DOXYCYCLINE HYCLATE 100 MG CAPSULE PO SCH ×2 (11:12→18:15)
[2022-08-12] MEDS: amLODIPine BESYLATE 10 MG TABLET (FP) PO SCH (11:12)
[2022-08-12] MEDS: ENOXAPARIN NA (PORCINE) 40 MG/0.4 ML DISP.SYRIN SQ SCH (11:12)
[2022-08-12] MEDS: ROSUVASTATIN CA 10 MG TABLET PO SCH (21:04)
[2022-08-12] MEDS: DONEPEZIL HCL 5 MG TABLET (FP) PO SCH (21:04)
[2022-08-13] MEDS: ACETAMINOPHEN 325 MG TABLET (FP) PO PRN (06:39)
[2022-08-13 09:38] LABS: BASO % 0.6 % (0-2.0); EOS % 1.9 % (0-4.5); HEMATOCRIT 32.5 % (32.4-45.2); HEMOGLOBIN 11.1 GM/dL (10.7-15.3); LYMPH % 8.5 % (8-40); MCH 29.1 pg (25.7-33.7); MEAN CELL VOLUME 85.4 fl (80-96); MEAN PLT VOLUME 7.8 fl (7.5-11.1); MONO % 11.3 % (3.8-10.2); NEUT % 77.7 % (42.8-82.8); PLATELET COUNT 342 10^3/uL (134-434); WHITE BLOOD COUNT 12.9 K/mm3 (4.0-10.0)
[2022-08-13 10:46] LABS: BLOOD UREA NITROGEN 13.4 mg/dL (7-18)
[2022-08-13 10:48] LABS: CALCIUM 8.8 mg/dL (8.5-10.1)
[2022-08-13 10:49] LABS: CREATININE 0.5 mg/dL (0.55-1.3)
[2022-08-13] MEDS: amLODIPine BESYLATE 10 MG TABLET (FP) PO SCH (12:16)
[2022-08-13] MEDS: DOXYCYCLINE HYCLATE 100 MG CAPSULE PO SCH ×2 (12:16→18:43)
[2022-08-13] MEDS: FAMOTIDINE 20 MG TABLET PO SCH ×2 (12:16→21:53)
[2022-08-13] MEDS: ENOXAPARIN NA (PORCINE) 40 MG/0.4 ML DISP.SYRIN SQ SCH (12:16)
[2022-08-13] MEDS: MULTIVITAMINS (DAILY MVI) TABLET (FP) PO SCH (12:16)
[2022-08-13] MEDS ORDERED: QUEtiapine FUMARATE 25 MG TABLET PO ONE (21:23)
[2022-08-13] MEDS: ROSUVASTATIN CA 10 MG TABLET PO SCH (21:53)
[2022-08-13] MEDS: DONEPEZIL HCL 5 MG TABLET (FP) PO SCH (21:53)
[2022-08-14] MEDS: ENOXAPARIN NA (PORCINE) 40 MG/0.4 ML DISP.SYRIN SQ SCH (09:19)
[2022-08-14] MEDS: MULTIVITAMINS (DAILY MVI) TABLET (FP) PO SCH (09:19)
[2022-08-14] MEDS: amLODIPine BESYLATE 10 MG TABLET (FP) PO SCH (09:19)
[2022-08-14] MEDS: FAMOTIDINE 20 MG TABLET PO SCH ×2 (09:19→23:12)
[2022-08-14] MEDS: DOXYCYCLINE HYCLATE 100 MG CAPSULE PO SCH ×2 (09:19→18:09)
[2022-08-14 09:43] LABS: BASO % 0.5 % (0-2.0); EOS % 2.8 % (0-4.5); LYMPH % 13.2 % (8-40); MCH 28.6 pg (25.7-33.7); MCHC 33.3 g/dl (32.0-36.0); MEAN CELL VOLUME 85.8 fl (80-96); MEAN PLT VOLUME 7.8 fl (7.5-11.1); MONO % 10.8 % (3.8-10.2); NEUT % 72.7 % (42.8-82.8); PLATELET COUNT 394 10^3/uL (134-434); RBC 3.85 M/mm3 (3.60-5.2); RDW 14.3 % (11.6-15.6); WHITE BLOOD COUNT 11.2 K/mm3 (4.0-10.0)
[2022-08-14 09:54] LABS: CALCIUM 8.9 mg/dL (8.5-10.1)
[2022-08-14 09:55] LABS: BLOOD UREA NITROGEN 16.6 mg/dL (7-18)
[2022-08-14 09:58] LABS: CREATININE 0.6 mg/dL (0.55-1.3)
[2022-08-14] MEDS: DONEPEZIL HCL 5 MG TABLET (FP) PO SCH (23:11)
[2022-08-14] MEDS: ROSUVASTATIN CA 10 MG TABLET PO SCH (23:11)
[2022-08-14] MEDS: ACETAMINOPHEN 325 MG TABLET (FP) PO PRN (23:49)
[2022-08-15] MEDS: ENOXAPARIN NA (PORCINE) 40 MG/0.4 ML DISP.SYRIN SQ SCH (09:04)
[2022-08-15] MEDS: DOXYCYCLINE HYCLATE 100 MG CAPSULE PO SCH ×2 (09:04→17:45)
[2022-08-15] MEDS: amLODIPine BESYLATE 10 MG TABLET (FP) PO SCH (09:04)
[2022-08-15] MEDS: MULTIVITAMINS (DAILY MVI) TABLET (FP) PO SCH (09:04)
[2022-08-15] MEDS: FAMOTIDINE 20 MG TABLET PO SCH (09:04)
[2022-08-15 10:31] LABS: BASO % 0.4 % (0-2.0); EOS % 2.2 % (0-4.5); HEMATOCRIT 35.3 % (32.4-45.2); HEMOGLOBIN 11.4 GM/dL (10.7-15.3); LYMPH % 13.3 % (8-40); MCHC 32.3 g/dl (32.0-36.0); MEAN CELL VOLUME 86.9 fl (80-96); MEAN PLT VOLUME 7.9 fl (7.5-11.1); MONO % 8.4 % (3.8-10.2); NEUT % 75.7 % (42.8-82.8); PLATELET COUNT 409 10^3/uL (134-434); RBC 4.06 M/mm3 (3.60-5.2); RDW 14.5 % (11.6-15.6); WHITE BLOOD COUNT 9.4 K/mm3 (4.0-10.0)
[2022-08-15 11:08] LABS: CALCIUM 8.7 mg/dL (8.5-10.1)
[2022-08-15 11:09] LABS: BLOOD UREA NITROGEN 18.5 mg/dL (7-18)
[2022-08-15 11:12] LABS: CREATININE 0.6 mg/dL (0.55-1.3)
[2022-08-16] MEDS: DONEPEZIL HCL 5 MG TABLET (FP) PO SCH ×2 (01:23→23:32)
[2022-08-16] MEDS: FAMOTIDINE 20 MG TABLET PO SCH ×3 (01:23→23:32)
[2022-08-16] MEDS: ROSUVASTATIN CA 10 MG TABLET PO SCH ×2 (01:23→23:32)
[2022-08-16] MEDS: DOXYCYCLINE HYCLATE 100 MG CAPSULE PO SCH ×2 (09:50→17:46)
[2022-08-16] MEDS: MULTIVITAMINS (DAILY MVI) TABLET (FP) PO SCH (09:50)
[2022-08-16] MEDS: amLODIPine BESYLATE 10 MG TABLET (FP) PO SCH (09:50)
[2022-08-16] MEDS: ENOXAPARIN NA (PORCINE) 40 MG/0.4 ML DISP.SYRIN SQ SCH (09:50)
[2022-08-16 12:53] LABS: BASO % 0.5 % (0-2.0); EOS % 2.8 % (0-4.5); HEMATOCRIT 35.3 % (32.4-45.2); HEMOGLOBIN 11.4 GM/dL (10.7-15.3); LYMPH % 10.9 % (8-40); MCH 28.1 pg (25.7-33.7); MCHC 32.3 g/dl (32.0-36.0); MEAN CELL VOLUME 86.9 fl (80-96); MEAN PLT VOLUME 7.7 fl (7.5-11.1); MONO % 11.9 % (3.8-10.2); NEUT % 73.9 % (42.8-82.8); PLATELET COUNT 433 10^3/uL (134-434); RBC 4.06 M/mm3 (3.60-5.2); RDW 14.4 % (11.6-15.6); WHITE BLOOD COUNT 9.3 K/mm3 (4.0-10.0)
[2022-08-16 13:06] LABS: BLOOD UREA NITROGEN 15.1 mg/dL (7-18); CALCIUM 8.7 mg/dL (8.5-10.1)
[2022-08-16 13:09] LABS: CREATININE 0.6 mg/dL (0.55-1.3)
[2022-08-17] MEDS: ENOXAPARIN NA (PORCINE) 40 MG/0.4 ML DISP.SYRIN SQ SCH ×2 (11:52→12:00)
[2022-08-17] MEDS: FAMOTIDINE 20 MG TABLET PO SCH (11:52)
[2022-08-17] MEDS: amLODIPine BESYLATE 10 MG TABLET (FP) PO SCH (11:52)
[2022-08-17] MEDS: DOXYCYCLINE HYCLATE 100 MG CAPSULE PO SCH ×3 (11:52→12:52)
[2022-08-17] MEDS: MULTIVITAMINS (DAILY MVI) TABLET (FP) PO SCH (11:53)
[2022-08-17] MEDS: ACETAMINOPHEN 325 MG TABLET (FP) PO PRN (12:51)
[2022-08-17 15:03] VITALS: BP 113/46; PULSE 83; RESP 18; TEMP 97.9
== END 2022-08-17 15:37 ==
LOC: JER 14:48 → INTOOBSV 20:51 → JERBED 20:51 → UNDOADMOB 20:51 → JERBED 21:43 → J7W 08-07 01:02 → JERBED 08-07 01:02 → J7W 08-15 10:57
PROVIDERS: ADMIT Internal Medicine; ATTEND Internal Medicine
PROC: 3E033NZ Introduction of Analgesics, Hypnotics, Sedatives into Peripheral Vein, Percutaneous Approach (ICD-10-PCS; principal; 2022-08-06)
PROC: 3E03329 Introduction of Other Anti-infective into Peripheral Vein, Percutaneous Approach (ICD-10-PCS; 2022-08-06)
PROC: 3E0337Z Introduction of Electrolytic and Water Balance Substance into Peripheral Vein, Percutaneous Approach (ICD-10-PCS; 2022-08-06)
DX: G30.1 Alzheimer's disease with late onset (principal); F02.80 Dementia in other diseases classified elsewhere, unspecified severity, without behavioral disturbance, psychotic disturbance, mood disturbance, and anxiety; N30.00 Acute cystitis without hematuria; R29.6 Repeated falls; Z88.8 Allergy status to other drugs, medicaments and biological substances; I10 Essential (primary) hypertension; E78.5 Hyperlipidemia, unspecified; M62.81 Muscle weakness (generalized); R41.0 Disorientation, unspecified; Z88.0 Allergy status to penicillin
CPT/HCPCS: 0241U-QW; 36415; 70450-TC; 71046-TC-FY; 72125-TC; 72131-TC; 72170-TC-FY; 73030-TC-LT-FY; 73090-TC-LT-FY; 73110-TC-LT-FY; 73130-TC-LT-FY; 73502-TC-RT-FY; 80048; 80053; 81003; 82550; 82553; 83735; 84100; 84132; 84436; 84443; 84484; 85025; 85027; 85610; 85730; 87086; 87186; 93005; 93010; 96361; 96365; 96375; 97116-GP; 97162-GP; 99285-25; C9803-CS; G0378; U0003; U0005

== ENCOUNTER 2022-09-07 23:46 | Emergency (ER) | payer OTHER ==
[2022-09-08 00:25] VITALS: BP 123/72; PULSE 94; RESP 17; TEMP 97.9; BMI 22.0
== END 2022-09-08 05:09 ==
LOC: JER 23:46
DX: M79.89 Other specified soft tissue disorders (principal); W19.XXXA Unspecified fall, initial encounter
CPT/HCPCS: 70450-TC; 72125-TC; 72170-TC-FY; 73090-TC-RT-FY; 73110-TC-RT-FY; 73502-TC-RT-FY; 99285-25

== ENCOUNTER 2023-01-03 09:34 | Inpatient (IN) | payer OTHER ==
[2023-01-03] MEDS ORDERED: ACETAMINOPHEN 1000 MG/100 ML BAG IVPB ONE (11:49)
[2023-01-03] MEDS ORDERED: SODIUM CHLORIDE 500 ML IV STA (11:49)
[2023-01-03 12:21] LABS: EPI CELLS 13 /uL (0-25.1); HYALINE CASTS 0 /uL (0-3.1); URINE APPEARANCE CLEAR; URINE BACTERIA 9 /uL (0-1359); URINE BILIRUBIN NEGATIVE (NEGATIVE); URINE COLOR YELLOW; URINE GLUCOSE (UA) NEGATIVE (NEGATIVE); URINE KETONE TRACE (NEGATIVE); URINE LEUK ESTERASE NEGATIVE (NEGATIVE); URINE NITRITE NEGATIVE (NEGATIVE); URINE PROTEIN 1+ (NEGATIVE); URINE RBC 12 /uL (0-23.9); URINE WBC 4 /uL (0-25.8)
[2023-01-03] MEDS ORDERED: ACETAMINOPHEN INJECTION 100 ML IVPB ONE (13:15)
[2023-01-03 13:35] LABS: BASO % 0.9 % (0-2.0); EOS % 1.2 % (0-4.5); HEMATOCRIT 37.3 % (32.4-45.2); HEMOGLOBIN 12.4 GM/dL (10.7-15.3); MCH 29.7 pg (25.7-33.7); MCHC 33.3 g/dl (32.0-36.0); MEAN CELL VOLUME 89.1 fl (80-96); MEAN PLT VOLUME 8.2 fl (7.5-11.1); MONO % 13.1 % (3.8-10.2); NEUT % 71.8 % (42.8-82.8); PLATELET COUNT 304 10^3/uL (134-434); RBC 4.18 M/mm3 (3.60-5.2); RDW 15.4 % (11.6-15.6); VENOUS BASE EXCESS 4.1 mmol/L (-2-2); VENOUS O2 SATURATION 21.1 % (70-80); VENOUS PCO2 51.6 mmHg (38-52); VENOUS PH 7.385 (7.310-7.410); WHITE BLOOD COUNT 12.9 K/mm3 (4.0-10.0)
[2023-01-03 13:42] LABS: INR 1.12 (0.83-1.09)
[2023-01-03 14:08] LABS: LACTIC ACID 3.4 mmol/L (0.4-2.0)
[2023-01-03] MEDS ORDERED: SODIUM CHLORIDE 0.9% 500 ML INFUS.BAG IV ONE ×2 (14:57→18:00)
[2023-01-03 15:01] LABS: POTASSIUM 4.4 mmol/L (3.5-5.1)
[2023-01-03 15:03] LABS: CALCIUM 9.6 mg/dL (8.5-10.1)
[2023-01-03 15:04] LABS: ALBUMIN 2.7 g/dl (3.4-5.0); BLOOD UREA NITROGEN 13.2 mg/dL (7-18)
[2023-01-03 15:07] LABS: CREATININE 0.6 mg/dL (0.55-1.3)
[2023-01-03 15:08] LABS: BILIRUBIN,TOTAL 0.2 mg/dL (0.2-1); TOT PROT 6.8 g/dl (6.4-8.2)
[2023-01-03 16:11] LABS: LACTIC ACID 2.2 mmol/L (0.4-2.0)
[2023-01-04] MEDS ORDERED: VANCOMYCIN/WATER FOR INJ (PEG) 1,000 MG/200 ML BAG IVPB ONE ×2 (00:30→08:00)
[2023-01-04 08:05] LABS: EOS % 0.3 % (0-4.5); HEMATOCRIT 33.7 % (32.4-45.2); HEMOGLOBIN 11.4 GM/dL (10.7-15.3); LYMPH % 10.7 % (8-40); MCH 29.8 pg (25.7-33.7); MCHC 33.7 g/dl (32.0-36.0); MEAN CELL VOLUME 88.3 fl (80-96); MEAN PLT VOLUME 8.4 fl (7.5-11.1); MONO % 13.7 % (3.8-10.2); NEUT % 74.3 % (42.8-82.8); PLATELET COUNT 274 10^3/uL (134-434); RBC 3.81 M/mm3 (3.60-5.2); RDW 15.3 % (11.6-15.6); WHITE BLOOD COUNT 12.6 K/mm3 (4.0-10.0)
[2023-01-04 08:18] LABS: POTASSIUM 4.2 mmol/L (3.5-5.1)
[2023-01-04 08:23] LABS: CALCIUM 8.8 mg/dL (8.5-10.1)
[2023-01-04 08:24] LABS: ALBUMIN 2.4 g/dl (3.4-5.0); BLOOD UREA NITROGEN 12.6 mg/dL (7-18)
[2023-01-04 08:27] LABS: CREATININE 0.5 mg/dL (0.55-1.3)
[2023-01-04 08:28] LABS: TOT PROT 6.2 g/dl (6.4-8.2)
[2023-01-04 08:29] LABS: BILIRUBIN,TOTAL 0.4 mg/dL (0.2-1)
[2023-01-04] MEDS: ACETAMINOPHEN 325 MG TABLET (FP) PO PRN (09:53)
[2023-01-04] MEDS: LIDOCAINE 5% TOPICAL PATCH TP SCH (09:53)
[2023-01-04] MEDS: amLODIPine BESYLATE 10 MG TABLET (FP) PO SCH (09:54)
[2023-01-04] MEDS: CALCIUM 500MG/VIT-D 200 UNITS COMBO TABLET (FP) PO SCH (09:54)
[2023-01-04] MEDS: ZINC SULFATE 220 MG CAPSULE (FP) PO SCH (09:54)
[2023-01-04] MEDS: FAMOTIDINE 20 MG TABLET PO SCH ×2 (09:54→22:23)
[2023-01-04] MEDS: DIVALPROEX SODIUM 500 MG TABLET E.C. PO SCH ×2 (09:59→22:23)
[2023-01-04] MEDS ORDERED: ONDANSETRON 4 MG/2 ML VIAL IVPUSH PRN (12:45)
[2023-01-04] MEDS: CEFTRIAXONE 1 GM in DEXTROSE 5%-WATER - 50 ML IVPB SCH (12:52)
[2023-01-04] MEDS: ENOXAPARIN NA (PORCINE) 60 MG/0.6 ML DISP.SYRIN SQ SCH (16:38)
[2023-01-04] MEDS ORDERED: MINERAL OIL ENEMA 133 ML ENEMA RC ONE (17:45)
[2023-01-04] MEDS: LIDOCAINE PATCH REMOVAL MC SCH (22:23)
[2023-01-04] MEDS: POLYETHYLENE GLYCOL (HEALTHYLAX) 3350 17 GM PACKET PO SCH (22:23)
[2023-01-05] MEDS: ENOXAPARIN NA (PORCINE) 60 MG/0.6 ML DISP.SYRIN SQ SCH ×2 (03:22→15:11)
[2023-01-05] MEDS: POLYETHYLENE GLYCOL (HEALTHYLAX) 3350 17 GM PACKET PO SCH ×3 (06:16→22:45)
[2023-01-05] MEDS: amLODIPine BESYLATE 10 MG TABLET (FP) PO SCH (10:47)
[2023-01-05] MEDS: ZINC SULFATE 220 MG CAPSULE (FP) PO SCH (10:47)
[2023-01-05] MEDS: FAMOTIDINE 20 MG TABLET PO SCH ×2 (10:47→22:45)
[2023-01-05] MEDS: LIDOCAINE 5% TOPICAL PATCH TP SCH (10:47)
[2023-01-05] MEDS: CALCIUM 500MG/VIT-D 200 UNITS COMBO TABLET (FP) PO SCH (10:47)
[2023-01-05] MEDS: CEFTRIAXONE 1 GM in DEXTROSE 5%-WATER - 50 ML IVPB SCH (10:48)
[2023-01-05] MEDS: DIVALPROEX SODIUM 500 MG TABLET E.C. PO SCH ×2 (10:48→22:45)
[2023-01-05] MEDS: COLLAGENASE CLOSTRIDIUM HIST. 30 GRAMS TUBE TP SCH (12:13)
[2023-01-05] MEDS ORDERED: SODIUM CHLORIDE 500 ML IV STA (18:13)
[2023-01-05] MEDS: LIDOCAINE PATCH REMOVAL MC SCH (22:46)
[2023-01-05] MEDS: ACETAMINOPHEN 325 MG TABLET (FP) PO PRN (22:48)
[2023-01-06] MEDS: ENOXAPARIN NA (PORCINE) 60 MG/0.6 ML DISP.SYRIN SQ SCH ×2 (03:14→14:45)
[2023-01-06] MEDS: POLYETHYLENE GLYCOL (HEALTHYLAX) 3350 17 GM PACKET PO SCH ×3 (06:02→22:27)
[2023-01-06] MEDS: FAMOTIDINE 20 MG TABLET PO SCH ×2 (10:01→22:26)
[2023-01-06] MEDS: CALCIUM 500MG/VIT-D 200 UNITS COMBO TABLET (FP) PO SCH (10:01)
[2023-01-06] MEDS: amLODIPine BESYLATE 10 MG TABLET (FP) PO SCH (10:01)
[2023-01-06] MEDS: ZINC SULFATE 220 MG CAPSULE (FP) PO SCH (10:01)
[2023-01-06] MEDS: DIVALPROEX SODIUM 500 MG TABLET E.C. PO SCH ×2 (10:02→23:04)
[2023-01-06] MEDS: LIDOCAINE 5% TOPICAL PATCH TP SCH (10:02)
[2023-01-06] MEDS: CEFTRIAXONE 1 GM in DEXTROSE 5%-WATER - 50 ML IVPB SCH (10:02)
[2023-01-06] MEDS: COLLAGENASE CLOSTRIDIUM HIST. 30 GRAMS TUBE TP SCH (10:03)
[2023-01-06] MEDS: LIDOCAINE PATCH REMOVAL MC SCH (22:26)
[2023-01-07] MEDS: ENOXAPARIN NA (PORCINE) 60 MG/0.6 ML DISP.SYRIN SQ SCH ×2 (03:30→15:01)
[2023-01-07] MEDS: POLYETHYLENE GLYCOL (HEALTHYLAX) 3350 17 GM PACKET PO SCH ×3 (06:22→21:39)
[2023-01-07] MEDS: FAMOTIDINE 20 MG TABLET PO SCH ×2 (09:44→21:38)
[2023-01-07] MEDS: amLODIPine BESYLATE 10 MG TABLET (FP) PO SCH (09:44)
[2023-01-07] MEDS: ZINC SULFATE 220 MG CAPSULE (FP) PO SCH (09:44)
[2023-01-07] MEDS: CALCIUM 500MG/VIT-D 200 UNITS COMBO TABLET (FP) PO SCH (09:44)
[2023-01-07] MEDS: LIDOCAINE 5% TOPICAL PATCH TP SCH (09:44)
[2023-01-07] MEDS: DIVALPROEX SODIUM 500 MG TABLET E.C. PO SCH ×2 (09:45→21:38)
[2023-01-07] MEDS: CEFTRIAXONE 1 GM in DEXTROSE 5%-WATER - 50 ML IVPB SCH (09:45)
[2023-01-07] MEDS: COLLAGENASE CLOSTRIDIUM HIST. 30 GRAMS TUBE TP SCH (09:46)
[2023-01-07] MEDS ORDERED: SODIUM CHLORIDE 0.9% 500 ML INFUS.BAG IV ONE (11:12)
[2023-01-07] MEDS: ASCORBIC ACID 500 MG TABLET (FP) PO SCH ×2 (12:42→22:00)
[2023-01-07] MEDS: MULTIVIT-MINERALS ORAL LIQUID PO SCH (12:43)
[2023-01-07 13:34] LABS: HEMATOCRIT 27.1 % (32.4-45.2); HEMOGLOBIN 8.7 GM/dL (10.7-15.3); MCH 28.7 pg (25.7-33.7); MCHC 32.1 g/dl (32.0-36.0); MEAN CELL VOLUME 89.6 fl (80-96); MEAN PLT VOLUME 8.1 fl (7.5-11.1); PLATELET COUNT 299 10^3/uL (134-434); RBC 3.03 M/mm3 (3.60-5.2); RDW 16.1 % (11.6-15.6); WHITE BLOOD COUNT 28.8 K/mm3 (4.0-10.0)
[2023-01-07 13:46] LABS: POTASSIUM 4.5 mmol/L (3.5-5.1)
[2023-01-07 13:49] LABS: CALCIUM 8.1 mg/dL (8.5-10.1)
[2023-01-07 13:50] LABS: BLOOD UREA NITROGEN 22.2 mg/dL (7-18)
[2023-01-07 13:52] LABS: CREATININE 1.1 mg/dL (0.55-1.3)
[2023-01-07 13:54] LABS: BILIRUBIN,TOTAL 0.3 mg/dL (0.2-1); TOT PROT 5.1 g/dl (6.4-8.2)
[2023-01-07 14:09] LABS: ALBUMIN 1.7 g/dl (3.4-5.0)
[2023-01-07 14:11] LABS: LACTIC ACID 7.2 mmol/L (0.4-2.0)
[2023-01-07 14:24] LABS: ANISOCYTOSIS 0; HELMET CELLS 0; HOWELL-JOLLY BODIES 0; MACROCYTOSIS 0; OVALOCYTE 0; ROULEAU 0; SICKELED CELLS 0; TARGET CELLS 0; TEAR DROP CELLS 0; TOXIC GRANULATION 0
[2023-01-07] MEDS: LIDOCAINE PATCH REMOVAL MC SCH (21:39)
[2023-01-07 22:32] LABS: LACTIC ACID 4.6 mmol/L (0.4-2.0)
[2023-01-08] MEDS: ENOXAPARIN NA (PORCINE) 60 MG/0.6 ML DISP.SYRIN SQ SCH ×2 (03:45→13:30)
[2023-01-08] MEDS: POLYETHYLENE GLYCOL (HEALTHYLAX) 3350 17 GM PACKET PO SCH (06:25)
[2023-01-08 07:27] LABS: MCH 30.1 pg (25.7-33.7); MCHC 33.4 g/dl (32.0-36.0); MEAN CELL VOLUME 90.1 fl (80-96); MEAN PLT VOLUME 8.9 fl (7.5-11.1); PLATELET COUNT 309 10^3/uL (134-434); RBC 2.99 M/mm3 (3.60-5.2); RDW 16.4 % (11.6-15.6); WHITE BLOOD COUNT 27.8 K/mm3 (4.0-10.0)
[2023-01-08 08:40] LABS: ANISOCYTOSIS 0; HELMET CELLS 0; HOWELL-JOLLY BODIES 0; MACROCYTOSIS 0; OVALOCYTE 0; ROULEAU 0; SICKELED CELLS 0; TARGET CELLS 0; TEAR DROP CELLS 0; TOXIC GRANULATION 0
[2023-01-08] MEDS: CALCIUM 500MG/VIT-D 200 UNITS COMBO TABLET (FP) PO SCH (09:04)
[2023-01-08] MEDS: ZINC SULFATE 220 MG CAPSULE (FP) PO SCH (09:04)
[2023-01-08] MEDS: DIVALPROEX SODIUM 500 MG TABLET E.C. PO SCH ×2 (09:11→11:19)
[2023-01-08] MEDS: CEFTRIAXONE 1 GM in DEXTROSE 5%-WATER - 50 ML IVPB SCH (09:11)
[2023-01-08] MEDS: ASCORBIC ACID 500 MG TABLET (FP) PO SCH (09:11)
[2023-01-08] MEDS: MULTIVIT-MINERALS ORAL LIQUID PO SCH ×2 (09:12→11:23)
[2023-01-08] MEDS: PANTOPRAZOLE SODIUM 40 MG VIAL IVPUSH SCH (11:00)
[2023-01-08] MEDS: FAMOTIDINE 20 MG TABLET PO SCH (11:22)
[2023-01-08] MEDS: COLLAGENASE CLOSTRIDIUM HIST. 30 GRAMS TUBE TP SCH (11:26)
[2023-01-08] MEDS: LIDOCAINE 5% TOPICAL PATCH TP SCH (11:47)
[2023-01-08] MEDS: AMINO ACIDS 4.25%/D5W 1,000 ML IV SCH ×2 (14:45→23:00)
[2023-01-08] MEDS ORDERED: SODIUM CHLORIDE 1,000 ML IV STA (17:29)
[2023-01-08] MEDS ORDERED: NOREPINEPHRINE BITARTRATE 4 MG/4 ML ML IV ONE ×2 (18:18→22:32)
[2023-01-08] MEDS: NOREPINEPHRINE 0.9 % NACL 8 MG/250 ML BAG IVPB SCH (18:45)
[2023-01-08 18:54] LABS: BASO % 0.5 % (0-2.0); HEMATOCRIT 20.4 % (32.4-45.2); LYMPH % 7.4 % (8-40); MCH 29.7 pg (25.7-33.7); MCHC 30.7 g/dl (32.0-36.0); MEAN CELL VOLUME 96.8 fl (80-96); MEAN PLT VOLUME 8.5 fl (7.5-11.1); MONO % 10.3 % (3.8-10.2); NEUT % 81.8 % (42.8-82.8); PLATELET COUNT 226 10^3/uL (134-434); WHITE BLOOD COUNT 27.6 K/mm3 (4.0-10.0)
[2023-01-08 18:59] LABS: HEMOGLOBIN 6.2 GM/dL (10.7-15.3)
[2023-01-08 19:14] LABS: POTASSIUM 5.6 mmol/L (3.5-5.1)
[2023-01-08 19:16] LABS: MAGNESIUM 2.6 mg/dL (1.8-2.4)
[2023-01-08 19:20] LABS: CREATININE 2.1 mg/dL (0.55-1.3)
[2023-01-08 19:21] LABS: BILIRUBIN,TOTAL 0.5 mg/dL (0.2-1); TOT PROT 3.6 g/dl (6.4-8.2)
[2023-01-08 19:25] LABS: ANISOCYTOSIS 1+; MACROCYTOSIS 1+; TEAR DROP CELLS 1+
[2023-01-08] MEDS ORDERED: EPINEPHrine 1:10,000 (P-F SYR) 1 MG/10 ML DISP.SYRIN ONE (19:43)
[2023-01-08 19:46] LABS: ALBUMIN 1.1 g/dl (3.4-5.0); PHOSPHOROUS 8.3 mg/dL (2.5-4.9)
[2023-01-08] MEDS: VASOPRESSIN 40 UNITS/100 ML BAG IV SCH (21:22)
[2023-01-08] MEDS: LIDOCAINE PATCH REMOVAL MC SCH (21:22)
[2023-01-08 21:29] LABS: LACTIC ACID 17.8 mmol/L (0.4-2.0)
[2023-01-08 21:52] LABS: EPI CELLS 25 /uL (0-25.1); HYALINE CASTS 4 /uL (0-3.1); PH,URINE 5.5 (5.0-8.0); URINE APPEARANCE CLEAR; URINE BACTERIA 6 /uL (0-1359); URINE BILIRUBIN 1+ (NEGATIVE); URINE COLOR DK YELLOW; URINE GLUCOSE (UA) NEGATIVE (NEGATIVE); URINE KETONE TRACE (NEGATIVE); URINE LEUK ESTERASE TRACE (NEGATIVE); URINE NITRITE NEGATIVE (NEGATIVE); URINE PROTEIN 1+ (NEGATIVE); URINE RBC 18 /uL (0-23.9); URINE WBC 46 /uL (0-25.8)
[2023-01-08] MEDS: VALPROATE SODIUM INJECTION 500 MG in SODIUM CHLORIDE 100 ML IVPB SCH (21:53)
[2023-01-08] MEDS: MEROPENEM 500 MG in DEXTROSE 5%-WATER 100 ML IVPB SCH (21:57)
[2023-01-08 22:00] LABS: ALBUMIN 1.2 g/dl (3.4-5.0)
[2023-01-08] MEDS ORDERED: VALPROATE SODIUM 500 MG/5 ML VIAL IVPB SCH (22:00)
[2023-01-08 22:05] LABS: BILIRUBIN,TOTAL 0.8 mg/dL (0.2-1); TOT PROT 3.9 g/dl (6.4-8.2)
[2023-01-08 22:08] LABS: BILIRUBIN,DIRECT 0.4 mg/dL (0.0-0.2)
[2023-01-09] MEDS: ENOXAPARIN NA (PORCINE) 60 MG/0.6 ML DISP.SYRIN SQ SCH (06:59)
[2023-01-09 07:33] LABS: POTASSIUM 4.6 mmol/L (3.5-5.1)
[2023-01-09 07:35] LABS: BASO % 0.2 % (0-2.0); EOS % 0.7 % (0-4.5); LYMPH % 3.6 % (8-40); MCH 30.7 pg (25.7-33.7); MCHC 34.2 g/dl (32.0-36.0); MEAN CELL VOLUME 89.8 fl (80-96); MEAN PLT VOLUME 9.1 fl (7.5-11.1); NEUT % 89.5 % (42.8-82.8); PLATELET COUNT 191 10^3/uL (134-434); RBC 4.01 M/mm3 (3.60-5.2); RDW 14.5 % (11.6-15.6); WHITE BLOOD COUNT 22.3 K/mm3 (4.0-10.0)
[2023-01-09 07:36] LABS: CALCIUM 7.4 mg/dL (8.5-10.1)
[2023-01-09 07:37] LABS: ALBUMIN 1.4 g/dl (3.4-5.0); BLOOD UREA NITROGEN 41.1 mg/dL (7-18); MAGNESIUM 1.9 mg/dL (1.8-2.4)
[2023-01-09 07:38] LABS: HEMOGLOBIN 12.3 GM/dL (10.7-15.3)
[2023-01-09 07:39] LABS: CREATININE 1.8 mg/dL (0.55-1.3)
[2023-01-09 07:40] LABS: PHOSPHOROUS 4.8 mg/dL (2.5-4.9)
[2023-01-09 07:41] LABS: BILIRUBIN,TOTAL 0.8 mg/dL (0.2-1); TOT PROT 4.2 g/dl (6.4-8.2)
[2023-01-09 07:55] LABS: LACTIC ACID 8.9 mmol/L (0.4-2.0)
[2023-01-09] MEDS: MEROPENEM 500 MG in DEXTROSE 5%-WATER 100 ML IVPB SCH ×2 (09:53→17:02)
[2023-01-09] MEDS: LIDOCAINE 5% TOPICAL PATCH TP SCH (09:55)
[2023-01-09] MEDS: VALPROATE SODIUM INJECTION 500 MG in SODIUM CHLORIDE 100 ML IVPB SCH ×2 (09:55→22:48)
[2023-01-09] MEDS: PANTOPRAZOLE SODIUM 40 MG VIAL IVPUSH SCH (09:55)
[2023-01-09] MEDS: COLLAGENASE CLOSTRIDIUM HIST. 30 GRAMS TUBE TP SCH (09:55)
[2023-01-09 10:00] LABS: ANISOCYTOSIS 0; HELMET CELLS 0; HOWELL-JOLLY BODIES 0; MACROCYTOSIS 0; OVALOCYTE 0; ROULEAU 0; SICKELED CELLS 0; TARGET CELLS 0; TEAR DROP CELLS 0; TOXIC GRANULATION 0
[2023-01-09] MEDS ORDERED: LACTATED RINGERS SOLUTION 1,000 ML/1,000 ML INFUS.BAG IV STA (13:54)
[2023-01-09] MEDS ORDERED: LEVOTHYROXINE SODIUM 100 MCG 5 ML VIAL IVPUSH STA (13:57)
[2023-01-09] MEDS: AMINO ACIDS 4.25%/D5W 1,000 ML IV SCH (14:05)
[2023-01-09 14:46] LABS: HEMATOCRIT 35.9 % (32.4-45.2); HEMOGLOBIN 12.1 GM/dL (10.7-15.3); MCH 30.1 pg (25.7-33.7); MCHC 33.8 g/dl (32.0-36.0); MEAN CELL VOLUME 89.2 fl (80-96); MEAN PLT VOLUME 8.6 fl (7.5-11.1); PLATELET COUNT 167 10^3/uL (134-434); RBC 4.02 M/mm3 (3.60-5.2); WHITE BLOOD COUNT 23.5 K/mm3 (4.0-10.0)
[2023-01-09 14:51] VITALS: BMI 24.3
[2023-01-09 15:06] LABS: POTASSIUM 4.3 mmol/L (3.5-5.1)
[2023-01-09 15:08] LABS: BLOOD UREA NITROGEN 46.9 mg/dL (7-18); CALCIUM 7.2 mg/dL (8.5-10.1); MAGNESIUM 1.9 mg/dL (1.8-2.4)
[2023-01-09 15:11] LABS: CREATININE 1.6 mg/dL (0.55-1.3); PHOSPHOROUS 4.7 mg/dL (2.5-4.9)
[2023-01-09] MEDS: LACTATED RINGERS SOLUTION 1,000 ML/1,000 ML INFUS.BAG IV SCH (15:15)
[2023-01-09 15:39] LABS: LACTIC ACID 5.7 mmol/L (0.4-2.0)
[2023-01-09 16:16] LABS: VENOUS BASE EXCESS -7.5 mmol/L (-2-2); VENOUS O2 SATURATION 62.6 % (70-80); VENOUS PCO2 28.2 mmHg (38-52); VENOUS PH 7.379 (7.310-7.410)
[2023-01-09] MEDS: NOREPINEPHRINE 0.9 % NACL 8 MG/250 ML BAG IVPB SCH (19:29)
[2023-01-09] MEDS: VASOPRESSIN 40 UNITS/100 ML BAG IV SCH (21:52)
[2023-01-09] MEDS ORDERED: MEROPENEM 500 MG in DEXTROSE 5%-WATER 100 ML IVPB SCH (22:00)
[2023-01-09] MEDS: LIDOCAINE PATCH REMOVAL MC SCH (22:48)
[2023-01-10] MEDS: AMINO ACIDS 4.25%/D5W 1,000 ML IV SCH ×3 (00:40→21:53)
[2023-01-10] MEDS: MEROPENEM 500 MG in DEXTROSE 5%-WATER 100 ML IVPB SCH ×3 (01:05→17:24)
[2023-01-10] MEDS: LACTATED RINGERS SOLUTION 1,000 ML/1,000 ML INFUS.BAG IV SCH ×2 (06:28→21:49)
[2023-01-10 06:50] LABS: ARTERIAL BLD GAS O2 SATURATION 97.1 % (95-98); ARTERIAL BLOOD GAS BASE EXCESS -5.7 mmol/L (-2-2); ARTERIAL BLOOD GAS PO2 84.5 mmHg (80-100); ARTERIAL BLOOD GAS pH 7.464 (7.350-7.450)
[2023-01-10 07:09] LABS: ALLENS TEST POSITIVE
[2023-01-10 07:10] LABS: PT'S TEMP 99.4
[2023-01-10 07:29] LABS: HEMATOCRIT 32.7 % (32.4-45.2); MCH 30.2 pg (25.7-33.7); MCHC 33.7 g/dl (32.0-36.0); MEAN CELL VOLUME 89.8 fl (80-96); MEAN PLT VOLUME 8.9 fl (7.5-11.1); PLATELET COUNT 151 10^3/uL (134-434); RBC 3.64 M/mm3 (3.60-5.2); RDW 15.3 % (11.6-15.6)
[2023-01-10 07:53] LABS: POTASSIUM 3.6 mmol/L (3.5-5.1)
[2023-01-10 07:55] LABS: CALCIUM 7.2 mg/dL (8.5-10.1)
[2023-01-10 07:56] LABS: ALBUMIN 1.1 g/dl (3.4-5.0); BLOOD UREA NITROGEN 52.1 mg/dL (7-18); MAGNESIUM 1.8 mg/dL (1.8-2.4)
[2023-01-10 07:59] LABS: CREATININE 1.4 mg/dL (0.55-1.3); PHOSPHOROUS 2.9 mg/dL (2.5-4.9)
[2023-01-10 08:01] LABS: BILIRUBIN,TOTAL 0.7 mg/dL (0.2-1); TOT PROT 3.6 g/dl (6.4-8.2)
[2023-01-10] MEDS ORDERED: PHENYLEPHRINE HCL 10 MG/1 ML SINGLE DOSE VIAL ONE (08:37)
[2023-01-10] MEDS: PHENYLEPHRINE NS PREMIX 50,000 MCG/500 ML BAG CVP SCH ×2 (08:40→17:24)
[2023-01-10] MEDS ORDERED: ONDANSETRON 4 MG/2 ML VIAL ONE (09:45)
[2023-01-10] MEDS ORDERED: RAPID SEQUENCE INTUBATION KIT NR ONE (09:50)
[2023-01-10] MEDS ORDERED: LEVOTHYROXINE SODIUM 100 MCG 5 ML VIAL IVPUSH SCH (10:00)
[2023-01-10] MEDS: COLLAGENASE CLOSTRIDIUM HIST. 30 GRAMS TUBE TP SCH (10:35)
[2023-01-10] MEDS: PANTOPRAZOLE SODIUM 40 MG VIAL IVPUSH SCH (10:35)
[2023-01-10] MEDS: VALPROATE SODIUM INJECTION 500 MG in SODIUM CHLORIDE 100 ML IVPB SCH ×2 (10:35→21:45)
[2023-01-10] MEDS: LIDOCAINE 5% TOPICAL PATCH TP SCH (10:36)
[2023-01-10 10:46] LABS: ANISOCYTOSIS 2+; MACROCYTOSIS 2+
[2023-01-10 10:50] LABS: WHITE BLOOD COUNT 29.9 K/mm3 (4.0-10.0)
[2023-01-10] MEDS: VASOPRESSIN 40 UNITS/100 ML BAG IV SCH ×2 (12:05→21:48)
[2023-01-10] MEDS: LIDOCAINE PATCH REMOVAL MC SCH (21:46)
[2023-01-10] MEDS: NOREPINEPHRINE 0.9 % NACL 8 MG/250 ML BAG IVPB SCH (21:47)
[2023-01-11] MEDS: MEROPENEM 500 MG in DEXTROSE 5%-WATER 100 ML IVPB SCH ×3 (01:41→17:08)
[2023-01-11] MEDS: PHENYLEPHRINE NS PREMIX 50,000 MCG/500 ML BAG CVP SCH ×2 (08:00→16:33)
[2023-01-11 08:12] LABS: CHLORIDE 113 mmol/L (98-107); SODIUM 144 mmol/L (136-145)
[2023-01-11 08:14] LABS: BLOOD UREA NITROGEN 47.8 mg/dL (7-18); CO2 23 mmol/L (21-32); GLUCOSE,RANDOM 86 mg/dL (74-106); MAGNESIUM 1.7 mg/dL (1.8-2.4)
[2023-01-11 08:17] LABS: CREATININE 0.8 mg/dL (0.55-1.3); PHOSPHOROUS 1.8 mg/dL (2.5-4.9); SGOT/AST 645 U/L (15-37); SGPT/ALT 632 U/L (13-61)
[2023-01-11 08:19] LABS: BILIRUBIN,TOTAL 0.7 mg/dL (0.2-1); TOT PROT 3.5 g/dl (6.4-8.2)
[2023-01-11 08:21] LABS: ALK PHOS 115 U/L (45-117)
[2023-01-11 08:43] LABS: HEMATOCRIT 30.6 % (32.4-45.2); HEMOGLOBIN 10.2 GM/dL (10.7-15.3); MCH 29.9 pg (25.7-33.7); MCHC 33.3 g/dl (32.0-36.0); MEAN CELL VOLUME 89.9 fl (80-96); MEAN PLT VOLUME 8.4 fl (7.5-11.1); PLATELET COUNT 96 10^3/uL (134-434); RDW 15.4 % (11.6-15.6); WHITE BLOOD COUNT 29.8 K/mm3 (4.0-10.0)
[2023-01-11 09:01] LABS: ANION GAP 8 MMOL/L (8-16); CALCIUM 7.2 mg/dL (8.5-10.1); POTASSIUM 2.5 mmol/L (3.5-5.1)
[2023-01-11] MEDS ORDERED: MAGNESIUM SULF 50% (8.12 MEQ/2 ML-1 GM VIAL) IVPB ONE (09:08)
[2023-01-11] MEDS: LIDOCAINE 5% TOPICAL PATCH TP SCH (09:39)
[2023-01-11] MEDS: PANTOPRAZOLE SODIUM 40 MG VIAL IVPUSH SCH (09:40)
[2023-01-11] MEDS: KCL 10 MEQ IVPB 10 MEQ/100 ML INFUS.BAG IVPB SCH ×6 (09:41→18:45)
[2023-01-11] MEDS: COLLAGENASE CLOSTRIDIUM HIST. 30 GRAMS TUBE TP SCH (09:41)
[2023-01-11] MEDS: LEVOTHYROXINE SODIUM 100 MCG 5 ML VIAL IVPUSH SCH (09:42)
[2023-01-11] MEDS ORDERED: POTASSIUM PHOSPHATE 30 MM in SODIUM CHLORIDE 250 ML IVPB ONE (10:00)
[2023-01-11] MEDS: VALPROATE SODIUM INJECTION 500 MG in SODIUM CHLORIDE 100 ML IVPB SCH ×2 (10:11→22:28)
[2023-01-11] MEDS: VASOPRESSIN 40 UNITS/100 ML BAG IV SCH ×2 (11:14→22:29)
[2023-01-11] MEDS: AMINO ACIDS 4.25%/D5W 1,000 ML IV SCH (13:15)
[2023-01-11 15:53] LABS: POTASSIUM 3.3 mmol/L (3.5-5.1)
[2023-01-11 15:55] LABS: MAGNESIUM 1.5 mg/dL (1.8-2.4)
[2023-01-11] MEDS: LACTATED RINGERS SOLUTION 1,000 ML/1,000 ML INFUS.BAG IV SCH (16:33)
[2023-01-11] MEDS: NOREPINEPHRINE 0.9 % NACL 8 MG/250 ML BAG IVPB SCH (22:28)
[2023-01-11] MEDS: LIDOCAINE PATCH REMOVAL MC SCH (22:29)
[2023-01-12] MEDS: MEROPENEM 500 MG in DEXTROSE 5%-WATER 100 ML IVPB SCH ×3 (02:55→18:16)
[2023-01-12] MEDS: AMINO ACIDS 4.25%/D5W 1,000 ML IV SCH ×2 (05:58→21:33)
[2023-01-12 07:25] LABS: HEMATOCRIT 30.5 % (32.4-45.2); HEMOGLOBIN 10.3 GM/dL (10.7-15.3); MCH 30.6 pg (25.7-33.7); MCHC 33.6 g/dl (32.0-36.0); MEAN PLT VOLUME 9.4 fl (7.5-11.1); PLATELET COUNT 48 10^3/uL (134-434); RBC 3.35 M/mm3 (3.60-5.2); RDW 15.7 % (11.6-15.6)
[2023-01-12 07:27] LABS: WHITE BLOOD COUNT 34.1 K/mm3 (4.0-10.0)
[2023-01-12 07:29] LABS: INR 1.24 (0.83-1.09); PROTHROMBIN TIME (PATIENT) 14.3 SEC (9.7-13.0)
[2023-01-12 07:43] LABS: POTASSIUM 3.1 mmol/L (3.5-5.1)
[2023-01-12 07:51] LABS: BLOOD UREA NITROGEN 37.7 mg/dL (7-18)
[2023-01-12 07:54] LABS: CREATININE 0.4 mg/dL (0.55-1.3)
[2023-01-12 07:55] LABS: TOT PROT 3.5 g/dl (6.4-8.2)
[2023-01-12 07:59] LABS: MAGNESIUM 1.5 mg/dL (1.8-2.4)
[2023-01-12 08:01] LABS: PHOSPHOROUS 1.6 mg/dL (2.5-4.9)
[2023-01-12] MEDS ORDERED: MAGNESIUM SULF 50% (8.12 MEQ/2 ML-1 GM VIAL) IVPB ONE (08:30)
[2023-01-12 08:37] LABS: ANISOCYTOSIS 0; HELMET CELLS 0; HOWELL-JOLLY BODIES 0; MACROCYTOSIS 0; OVALOCYTE 0; ROULEAU 0; SICKELED CELLS 0; TARGET CELLS 0; TEAR DROP CELLS 0; TOXIC GRANULATION 0
[2023-01-12] MEDS: LIDOCAINE 5% TOPICAL PATCH TP SCH (09:35)
[2023-01-12] MEDS: PANTOPRAZOLE SODIUM 40 MG VIAL IVPUSH SCH (09:36)
[2023-01-12] MEDS: NAPH,MB-DB/K PH,MBDB POWDER PACKET PO SCH ×2 (09:36→21:42)
[2023-01-12] MEDS: COLLAGENASE CLOSTRIDIUM HIST. 30 GRAMS TUBE TP SCH (09:36)
[2023-01-12] MEDS: LEVOTHYROXINE SODIUM 100 MCG 5 ML VIAL IVPUSH SCH (09:36)
[2023-01-12] MEDS: VALPROATE SODIUM INJECTION 500 MG in SODIUM CHLORIDE 100 ML IVPB SCH ×2 (09:39→21:36)
[2023-01-12] MEDS ORDERED: ENOXAPARIN NA (PORCINE) 40 MG/0.4 ML DISP.SYRIN SQ SCH (10:00)
[2023-01-12] MEDS ORDERED: ENOXAPARIN NA (PORCINE) 60 MG/0.6 ML DISP.SYRIN SQ SCH ×2 (12:30→13:33)
[2023-01-12] MEDS: KCL 10 MEQ IVPB 10 MEQ/100 ML INFUS.BAG IVPB SCH ×3 (19:25→22:27)
[2023-01-12] MEDS: PHENYLEPHRINE NS PREMIX 50,000 MCG/500 ML BAG CVP SCH (21:32)
[2023-01-12] MEDS: VASOPRESSIN 40 UNITS/100 ML BAG IV SCH (21:33)
[2023-01-12] MEDS: NOREPINEPHRINE 0.9 % NACL 8 MG/250 ML BAG IVPB SCH (21:33)
[2023-01-12] MEDS: LIDOCAINE PATCH REMOVAL MC SCH (21:39)
[2023-01-13] MEDS: MEROPENEM 500 MG in DEXTROSE 5%-WATER 100 ML IVPB SCH ×3 (02:00→18:34)
[2023-01-13] MEDS: VASOPRESSIN 40 UNITS/100 ML BAG IV SCH ×2 (02:12→22:08)
[2023-01-13] MEDS ORDERED: DEXTROSE 50%-WATER 25 GM/50 ML DISP.SYRIN ONE (04:15)
[2023-01-13] MEDS ORDERED: DEXTROSE 50%-WATER - 25 GM/50 ML VIAL IVPUSH ONE (06:33)
[2023-01-13] MEDS ORDERED: DEXTROSE 50%-WATER 25 GM/50 ML DISP.SYRIN IVPUSH ONE (06:33)
[2023-01-13] MEDS: DEXTROSE 10%-WATER - 1,000 ML IV SCH (06:36)
[2023-01-13 07:20] LABS: HEMATOCRIT 28.4 % (32.4-45.2); HEMOGLOBIN 9.7 GM/dL (10.7-15.3); MCH 30.8 pg (25.7-33.7); MEAN CELL VOLUME 90.7 fl (80-96); MEAN PLT VOLUME 9.2 fl (7.5-11.1); RBC 3.13 M/mm3 (3.60-5.2); RDW 15.6 % (11.6-15.6)
[2023-01-13 07:33] LABS: WHITE BLOOD COUNT 33.8 K/mm3 (4.0-10.0)
[2023-01-13 07:40] LABS: POTASSIUM 3.2 mmol/L (3.5-5.1)
[2023-01-13 07:43] LABS: ALBUMIN 1.1 g/dl (3.4-5.0); BLOOD UREA NITROGEN 35.8 mg/dL (7-18); MAGNESIUM 1.8 mg/dL (1.8-2.4)
[2023-01-13 07:47] LABS: CREATININE 0.4 mg/dL (0.55-1.3); PHOSPHOROUS 1.3 mg/dL (2.5-4.9)
[2023-01-13 07:48] LABS: TOT PROT 3.6 g/dl (6.4-8.2)
[2023-01-13] MEDS: KCL 10 MEQ IVPB 10 MEQ/100 ML INFUS.BAG IVPB SCH ×3 (09:05→13:31)
[2023-01-13 09:52] LABS: ANISOCYTOSIS 2+; MACROCYTOSIS 0
[2023-01-13] MEDS: VALPROATE SODIUM INJECTION 500 MG in SODIUM CHLORIDE 100 ML IVPB SCH ×2 (11:00→22:09)
[2023-01-13] MEDS: COLLAGENASE CLOSTRIDIUM HIST. 30 GRAMS TUBE TP SCH (11:02)
[2023-01-13] MEDS: PANTOPRAZOLE SODIUM 40 MG VIAL IVPUSH SCH (11:02)
[2023-01-13] MEDS: LEVOTHYROXINE SODIUM 100 MCG 5 ML VIAL IVPUSH SCH (11:02)
[2023-01-13] MEDS: NAPH,MB-DB/K PH,MBDB POWDER PACKET PO SCH ×2 (11:03→22:09)
[2023-01-13] MEDS: LIDOCAINE 5% TOPICAL PATCH TP SCH (11:03)
[2023-01-13 11:24] LABS: PLATELET COUNT 20 10^3/uL (134-434)
[2023-01-13] MEDS ORDERED: POTASSIUM PHOSPHATE 30 MM in DEXTROSE 5%-WATER - 250 ML IVPB ONE (13:58)
[2023-01-13] MEDS ORDERED: MAGNESIUM 1GM/D5W 100ML - 100 ML IVPB IVPB ONE (15:58)
[2023-01-13] MEDS: NOREPINEPHRINE 0.9 % NACL 8 MG/250 ML BAG IVPB SCH (19:43)
[2023-01-13] MEDS: PHENYLEPHRINE NS PREMIX 50,000 MCG/500 ML BAG CVP SCH (19:43)
[2023-01-13] MEDS: AMINO ACIDS 4.25%/D5W 1,000 ML IV SCH (19:43)
[2023-01-13] MEDS: LIDOCAINE PATCH REMOVAL MC SCH (22:09)
[2023-01-14] MEDS: MEROPENEM 500 MG in DEXTROSE 5%-WATER 100 ML IVPB SCH ×3 (02:17→17:31)
[2023-01-14] MEDS: DEXTROSE 10%-WATER - 1,000 ML IV SCH (05:24)
[2023-01-14 07:02] LABS: HEMATOCRIT 24.9 % (32.4-45.2); HEMOGLOBIN 8.2 GM/dL (10.7-15.3); MCH 29.9 pg (25.7-33.7); MCHC 32.8 g/dl (32.0-36.0); MEAN PLT VOLUME 10.1 fl (7.5-11.1); PLATELET COUNT 61 10^3/uL (134-434); RBC 2.73 M/mm3 (3.60-5.2); RDW 15.9 % (11.6-15.6); WHITE BLOOD COUNT 26.1 K/mm3 (4.0-10.0)
[2023-01-14 07:05] LABS: CHLORIDE 111 mmol/L (98-107); POTASSIUM 3.6 mmol/L (3.5-5.1); SODIUM 139 mmol/L (136-145)
[2023-01-14 07:08] LABS: ALBUMIN 1.2 g/dl (3.4-5.0); ANION GAP 5 MMOL/L (8-16); CO2 23 mmol/L (21-32)
[2023-01-14 07:09] LABS: BLOOD UREA NITROGEN 30.9 mg/dL (7-18); GLUCOSE,RANDOM 110 mg/dL (74-106); MAGNESIUM 1.8 mg/dL (1.8-2.4)
[2023-01-14 07:12] LABS: CREATININE 0.3 mg/dL (0.55-1.3); PHOSPHOROUS 2.2 mg/dL (2.5-4.9); SGOT/AST 59 U/L (15-37); SGPT/ALT 113 U/L (13-61)
[2023-01-14 07:13] LABS: BILIRUBIN,TOTAL 1.1 mg/dL (0.2-1); TOT PROT 3.8 g/dl (6.4-8.2)
[2023-01-14 07:14] LABS: ALK PHOS 100 U/L (45-117)
[2023-01-14 07:23] LABS: CALCIUM 6.8 mg/dL (8.5-10.1)
[2023-01-14] MEDS ORDERED: POTASSIUM PHOSPHATE 30 MM in SODIUM CHLORIDE 250 ML IVPB ONE (09:00)
[2023-01-14] MEDS: COLLAGENASE CLOSTRIDIUM HIST. 30 GRAMS TUBE TP SCH (09:48)
[2023-01-14] MEDS: VALPROATE SODIUM INJECTION 500 MG in SODIUM CHLORIDE 100 ML IVPB SCH ×2 (09:48→21:39)
[2023-01-14] MEDS: LEVOTHYROXINE SODIUM 100 MCG 5 ML VIAL IVPUSH SCH (09:48)
[2023-01-14] MEDS: NAPH,MB-DB/K PH,MBDB POWDER PACKET PO SCH ×2 (09:48→21:40)
[2023-01-14] MEDS: PANTOPRAZOLE SODIUM 40 MG VIAL IVPUSH SCH (09:52)
[2023-01-14] MEDS: LIDOCAINE 5% TOPICAL PATCH TP SCH (09:52)
[2023-01-14] MEDS ORDERED: FUROSEMIDE 40 MG/4 ML INJECTABLE VIAL IVPUSH ONE (14:42)
[2023-01-14] MEDS ORDERED: ACETAMINOPHEN 1000 MG/100 ML BAG IVPB ONE (16:28)
[2023-01-14] MEDS: AMINO ACIDS 4.25%/D5W 1,000 ML IV SCH (16:59)
[2023-01-14] MEDS: VASOPRESSIN 40 UNITS/100 ML BAG IV SCH (21:38)
[2023-01-14] MEDS: LIDOCAINE PATCH REMOVAL MC SCH (21:40)
[2023-01-15] MEDS: MEROPENEM 500 MG in DEXTROSE 5%-WATER 100 ML IVPB SCH ×3 (01:44→17:03)
[2023-01-15] MEDS ORDERED: DEXTROSE 10%-WATER - 1,000 ML IV SCH (07:00)
[2023-01-15 07:13] LABS: HEMATOCRIT 26.4 % (32.4-45.2); HEMOGLOBIN 8.7 GM/dL (10.7-15.3); MCHC 33.1 g/dl (32.0-36.0); MEAN CELL VOLUME 90.7 fl (80-96); MEAN PLT VOLUME 10.3 fl (7.5-11.1); PLATELET COUNT 70 10^3/uL (134-434); RBC 2.91 M/mm3 (3.60-5.2); RDW 15.9 % (11.6-15.6); WHITE BLOOD COUNT 25.1 K/mm3 (4.0-10.0)
[2023-01-15 07:30] LABS: POTASSIUM 3.7 mmol/L (3.5-5.1)
[2023-01-15 07:34] LABS: CALCIUM 7.1 mg/dL (8.5-10.1)
[2023-01-15 07:35] LABS: ALBUMIN 1.3 g/dl (3.4-5.0); BLOOD UREA NITROGEN 25.1 mg/dL (7-18); MAGNESIUM 1.8 mg/dL (1.8-2.4)
[2023-01-15 07:38] LABS: CREATININE 0.2 mg/dL (0.55-1.3); PHOSPHOROUS 1.8 mg/dL (2.5-4.9)
[2023-01-15 07:39] LABS: TOT PROT 3.9 g/dl (6.4-8.2)
[2023-01-15 07:40] LABS: BILIRUBIN,TOTAL 1.2 mg/dL (0.2-1)
[2023-01-15] MEDS ORDERED: PHENYLEPHRINE HCL 10 MG/1 ML SINGLE DOSE VIAL ONE (07:50)
[2023-01-15] MEDS ORDERED: KCL 20 MEQ PREMIX BAG 100 ML IVPB ONE (08:30)
[2023-01-15 08:43] LABS: ANISOCYTOSIS 1+; MACROCYTOSIS 1+
[2023-01-15] MEDS: PANTOPRAZOLE SODIUM 40 MG VIAL IVPUSH SCH (09:04)
[2023-01-15] MEDS: COLLAGENASE CLOSTRIDIUM HIST. 30 GRAMS TUBE TP SCH (09:04)
[2023-01-15] MEDS: LIDOCAINE 5% TOPICAL PATCH TP SCH (09:04)
[2023-01-15] MEDS: NAPH,MB-DB/K PH,MBDB POWDER PACKET PO SCH ×2 (09:04→21:57)
[2023-01-15] MEDS: LEVOTHYROXINE SODIUM 100 MCG 5 ML VIAL IVPUSH SCH (09:05)
[2023-01-15] MEDS: VALPROATE SODIUM INJECTION 500 MG in SODIUM CHLORIDE 100 ML IVPB SCH ×2 (10:30→21:46)
[2023-01-15] MEDS ORDERED: FUROSEMIDE 40 MG/4 ML INJECTABLE VIAL IVPUSH ONE (11:36)
[2023-01-15] MEDS: AMINO ACIDS 4.25%/D5W 1,000 ML IV SCH (12:42)
[2023-01-15] MEDS ORDERED: ALBUMIN HUMAN 25% 12.5 GM/50 ML VIAL IV ONE (13:00)
[2023-01-15] MEDS: VASOPRESSIN 40 UNITS/100 ML BAG IV SCH (17:12)
[2023-01-15] MEDS: LIDOCAINE PATCH REMOVAL MC SCH (21:46)
[2023-01-16] MEDS: AMINO ACIDS 4.25%/D5W 1,000 ML IV SCH (00:55)
[2023-01-16] MEDS: MEROPENEM 500 MG in DEXTROSE 5%-WATER 100 ML IVPB SCH ×3 (01:02→17:17)
[2023-01-16] MEDS: VASOPRESSIN 40 UNITS/100 ML BAG IV SCH ×2 (06:30→21:24)
[2023-01-16 07:14] LABS: HEMATOCRIT 27.3 % (32.4-45.2); HEMOGLOBIN 9.1 GM/dL (10.7-15.3); MCH 30.5 pg (25.7-33.7); MCHC 33.3 g/dl (32.0-36.0); MEAN CELL VOLUME 91.7 fl (80-96); PLATELET COUNT 125 10^3/uL (134-434); RBC 2.98 M/mm3 (3.60-5.2)
[2023-01-16 07:24] LABS: CHLORIDE 106 mmol/L (98-107); POTASSIUM 3.5 mmol/L (3.5-5.1); SODIUM 136 mmol/L (136-145)
[2023-01-16 07:44] LABS: ALBUMIN 1.5 g/dl (3.4-5.0); ANION GAP 5 MMOL/L (8-16); BLOOD UREA NITROGEN 23.9 mg/dL (7-18); CALCIUM 7.1 mg/dL (8.5-10.1); CO2 24 mmol/L (21-32); GLUCOSE,RANDOM 131 mg/dL (74-106); MAGNESIUM 1.5 mg/dL (1.8-2.4)
[2023-01-16 07:47] LABS: CREATININE 0.3 mg/dL (0.55-1.3); SGOT/AST 34 U/L (15-37); SGPT/ALT 60 U/L (13-61)
[2023-01-16 07:48] LABS: TOT PROT 4.2 g/dl (6.4-8.2)
[2023-01-16 07:49] LABS: BILIRUBIN,TOTAL 0.9 mg/dL (0.2-1)
[2023-01-16 07:50] LABS: ALK PHOS 88 U/L (45-117)
[2023-01-16 08:23] LABS: PHOSPHOROUS 0.8 mg/dL (2.5-4.9)
[2023-01-16] MEDS: LEVOTHYROXINE SODIUM 100 MCG 5 ML VIAL IVPUSH SCH (09:05)
[2023-01-16] MEDS: PANTOPRAZOLE SODIUM 40 MG VIAL IVPUSH SCH (09:05)
[2023-01-16] MEDS: NAPH,MB-DB/K PH,MBDB POWDER PACKET PO SCH ×2 (09:05→21:28)
[2023-01-16] MEDS: VALPROATE SODIUM INJECTION 500 MG in SODIUM CHLORIDE 100 ML IVPB SCH ×2 (09:06→21:42)
[2023-01-16] MEDS: COLLAGENASE CLOSTRIDIUM HIST. 30 GRAMS TUBE TP SCH (09:06)
[2023-01-16] MEDS: LIDOCAINE 5% TOPICAL PATCH TP SCH (09:06)
[2023-01-16] MEDS ORDERED: FUROSEMIDE 40 MG/4 ML INJECTABLE VIAL IVPUSH ONE (09:07)
[2023-01-16] MEDS ORDERED: MAGNESIUM 1GM/D5W - 1 GM/100 ML IVPB IVPB ONE (09:15)
[2023-01-16 09:35] LABS: ANISOCYTOSIS 1+; MACROCYTOSIS 1+
[2023-01-16] MEDS ORDERED: POTASSIUM PHOSPHATE 30 MM in DEXTROSE 5%-WATER - 250 ML IVPB ONE (10:00)
[2023-01-16] MEDS ORDERED: ONDANSETRON 4 MG/2 ML VIAL IVPUSH ONE (12:55)
[2023-01-16] MEDS: HEPARIN NA (PORCINE) 5,000 UNITS/ML 1ML VIAL SQ SCH ×2 (13:27→21:24)
[2023-01-16] MEDS: LIDOCAINE PATCH REMOVAL MC SCH (21:24)
[2023-01-17] MEDS: MEROPENEM 500 MG in DEXTROSE 5%-WATER 100 ML IVPB SCH ×3 (03:01→17:32)
[2023-01-17] MEDS: HEPARIN NA (PORCINE) 5,000 UNITS/ML 1ML VIAL SQ SCH ×3 (06:06→22:44)
[2023-01-17 07:05] LABS: HEMATOCRIT 25.5 % (32.4-45.2); HEMOGLOBIN 8.5 GM/dL (10.7-15.3); MCH 30.8 pg (25.7-33.7); MCHC 33.4 g/dl (32.0-36.0); MEAN CELL VOLUME 92.4 fl (80-96); PLATELET COUNT 194 10^3/uL (134-434); RBC 2.76 M/mm3 (3.60-5.2)
[2023-01-17 07:06] LABS: CALCIUM 7.3 mg/dL (8.5-10.1)
[2023-01-17 07:07] LABS: ALBUMIN 1.3 g/dl (3.4-5.0); BLOOD UREA NITROGEN 24.6 mg/dL (7-18); MAGNESIUM 1.6 mg/dL (1.8-2.4)
[2023-01-17 07:10] LABS: CREATININE 0.3 mg/dL (0.55-1.3); PHOSPHOROUS 1.8 mg/dL (2.5-4.9)
[2023-01-17 07:11] LABS: BILIRUBIN,TOTAL 0.8 mg/dL (0.2-1); TOT PROT 3.9 g/dl (6.4-8.2)
[2023-01-17] MEDS ORDERED: MAGNESIUM SULF 50% (8.12 MEQ/2 ML-1 GM VIAL) IVPB ONE (08:00)
[2023-01-17] MEDS: PANTOPRAZOLE SODIUM 40 MG VIAL IVPUSH SCH (08:59)
[2023-01-17] MEDS: NAPH,MB-DB/K PH,MBDB POWDER PACKET PO SCH ×2 (08:59→22:44)
[2023-01-17 09:05] LABS: ANISOCYTOSIS 0; HELMET CELLS 0; HOWELL-JOLLY BODIES 0; MACROCYTOSIS 0; OVALOCYTE 0; ROULEAU 0; SICKELED CELLS 0; TARGET CELLS 0; TEAR DROP CELLS 0; TOXIC GRANULATION 0
[2023-01-17] MEDS: VALPROATE SODIUM INJECTION 500 MG in SODIUM CHLORIDE 100 ML IVPB SCH ×2 (09:27→21:42)
[2023-01-17] MEDS: COLLAGENASE CLOSTRIDIUM HIST. 30 GRAMS TUBE TP SCH (10:30)
[2023-01-17] MEDS: LEVOTHYROXINE SODIUM 100 MCG 5 ML VIAL IVPUSH SCH (10:38)
[2023-01-17] MEDS: LIDOCAINE 5% TOPICAL PATCH TP SCH (11:27)
[2023-01-17] MEDS ORDERED: ACETAMINOPHEN 325 MG TABLET (FP) PO PRN (15:09)
[2023-01-17] MEDS ORDERED: ONDANSETRON 4 MG/2 ML VIAL IVPUSH PRN (15:09)
[2023-01-17] MEDS: THIAMINE HCL 200 MG/2 ML VIAL IVPB SCH (16:35)
[2023-01-17] MEDS ORDERED: ACETAMINOPHEN 1000 MG/100 ML BAG IVPB ONE (20:17)
[2023-01-17] MEDS: LIDOCAINE PATCH REMOVAL MC SCH (22:44)
[2023-01-18] MEDS: MEROPENEM 500 MG in DEXTROSE 5%-WATER 100 ML IVPB SCH ×3 (01:15→17:30)
[2023-01-18] MEDS: HEPARIN NA (PORCINE) 5,000 UNITS/ML 1ML VIAL SQ SCH ×3 (05:42→21:07)
[2023-01-18] MEDS: THIAMINE HCL 200 MG/2 ML VIAL IVPB SCH (10:23)
[2023-01-18] MEDS: PANTOPRAZOLE SODIUM 40 MG VIAL IVPUSH SCH (10:23)
[2023-01-18] MEDS: NAPH,MB-DB/K PH,MBDB POWDER PACKET PO SCH ×2 (10:23→21:07)
[2023-01-18] MEDS: LIDOCAINE 5% TOPICAL PATCH TP SCH (10:23)
[2023-01-18] MEDS: COLLAGENASE CLOSTRIDIUM HIST. 30 GRAMS TUBE TP SCH (10:24)
[2023-01-18 11:39] LABS: HEMATOCRIT 27.7 % (32.4-45.2); HEMOGLOBIN 8.9 GM/dL (10.7-15.3); MCH 30.2 pg (25.7-33.7); MCHC 32.3 g/dl (32.0-36.0); MEAN CELL VOLUME 93.6 fl (80-96); MEAN PLT VOLUME 8.4 fl (7.5-11.1); PLATELET COUNT 299 10^3/uL (134-434); RBC 2.96 M/mm3 (3.60-5.2); RDW 17.3 % (11.6-15.6)
[2023-01-18 11:43] LABS: WHITE BLOOD COUNT 30.7 K/mm3 (4.0-10.0)
[2023-01-18 11:56] LABS: POTASSIUM 4.1 mmol/L (3.5-5.1)
[2023-01-18 12:03] LABS: BLOOD UREA NITROGEN 26.8 mg/dL (7-18)
[2023-01-18 12:07] LABS: CREATININE 0.4 mg/dL (0.55-1.3); PHOSPHOROUS 2.1 mg/dL (2.5-4.9)
[2023-01-18 12:11] LABS: MAGNESIUM 1.9 mg/dL (1.8-2.4)
[2023-01-18] MEDS: LEVOTHYROXINE SODIUM 100 MCG 5 ML VIAL IVPUSH SCH (12:19)
[2023-01-18] MEDS: VALPROATE SODIUM INJECTION 500 MG in SODIUM CHLORIDE 100 ML IVPB SCH ×3 (13:14→23:54)
[2023-01-18] MEDS: LIDOCAINE PATCH REMOVAL MC SCH (21:07)
[2023-01-19] MEDS: MEROPENEM 500 MG in DEXTROSE 5%-WATER 100 ML IVPB SCH ×2 (01:18→11:35)
[2023-01-19] MEDS: HEPARIN NA (PORCINE) 5,000 UNITS/ML 1ML VIAL SQ SCH ×2 (05:22→15:11)
[2023-01-19 09:44] LABS: POTASSIUM 3.7 mmol/L (3.5-5.1)
[2023-01-19 09:53] LABS: BLOOD UREA NITROGEN 27.4 mg/dL (7-18); CALCIUM 7.8 mg/dL (8.5-10.1)
[2023-01-19 09:56] LABS: CREATININE 0.3 mg/dL (0.55-1.3)
[2023-01-19] MEDS: LIDOCAINE 5% TOPICAL PATCH TP SCH (10:26)
[2023-01-19] MEDS: NAPH,MB-DB/K PH,MBDB POWDER PACKET PO SCH (10:26)
[2023-01-19] MEDS: VALPROATE SODIUM INJECTION 500 MG in SODIUM CHLORIDE 100 ML IVPB SCH ×2 (11:25→22:54)
[2023-01-19] MEDS: LEVOTHYROXINE SODIUM 100 MCG 5 ML VIAL IVPUSH SCH (11:36)
[2023-01-19] MEDS: PANTOPRAZOLE SODIUM 40 MG VIAL IVPUSH SCH (11:36)
[2023-01-19] MEDS: THIAMINE HCL 200 MG/2 ML VIAL IVPB SCH (11:37)
[2023-01-19] MEDS: COLLAGENASE CLOSTRIDIUM HIST. 30 GRAMS TUBE TP SCH (15:11)
[2023-01-20] MEDS: HEPARIN NA (PORCINE) 5,000 UNITS/ML 1ML VIAL SQ SCH ×2 (00:35→05:36)
[2023-01-20] MEDS: NAPH,MB-DB/K PH,MBDB POWDER PACKET PO SCH ×3 (00:35→21:03)
[2023-01-20] MEDS: LIDOCAINE PATCH REMOVAL MC SCH ×2 (00:35→21:03)
[2023-01-20] MEDS ORDERED: FENTANYL PATCH WASTE TD PRN (07:28)
[2023-01-20] MEDS ORDERED: fentaNYL 12mcg/hr PATCH.TD72 TD SCH (07:30)
[2023-01-20] MEDS: LIDOCAINE 5% TOPICAL PATCH TP SCH (12:41)
[2023-01-20] MEDS: VALPROATE SODIUM INJECTION 500 MG in SODIUM CHLORIDE 100 ML IVPB SCH (12:43)
[2023-01-20] MEDS: PANTOPRAZOLE SODIUM 40 MG VIAL IVPUSH SCH (12:43)
[2023-01-20] MEDS: LEVOTHYROXINE SODIUM 100 MCG 5 ML VIAL IVPUSH SCH (12:43)
[2023-01-20] MEDS: THIAMINE HCL 200 MG/2 ML VIAL IVPB SCH (12:44)
[2023-01-20] MEDS: COLLAGENASE CLOSTRIDIUM HIST. 30 GRAMS TUBE TP SCH (17:23)
[2023-01-20] MEDS: VALPROATE SODIUM 250 MG/5 ML UNIT DOSE CUP GT SCH (21:03)
[2023-01-21] MEDS: NAPH,MB-DB/K PH,MBDB POWDER PACKET PO SCH ×2 (10:27→22:18)
[2023-01-21] MEDS: VALPROATE SODIUM 250 MG/5 ML UNIT DOSE CUP GT SCH ×2 (10:27→22:18)
[2023-01-21] MEDS: LIDOCAINE 5% TOPICAL PATCH TP SCH (10:27)
[2023-01-21] MEDS: COLLAGENASE CLOSTRIDIUM HIST. 30 GRAMS TUBE TP SCH (10:29)
[2023-01-21] MEDS: PANTOPRAZOLE SODIUM 40 MG VIAL IVPUSH SCH (10:47)
[2023-01-21] MEDS: LIDOCAINE PATCH REMOVAL MC SCH (22:25)
[2023-01-22 07:58] VITALS: PULSE 112; RESP 18
[2023-01-22] MEDS: VALPROATE SODIUM 250 MG/5 ML UNIT DOSE CUP GT SCH (09:46)
[2023-01-22] MEDS: NAPH,MB-DB/K PH,MBDB POWDER PACKET PO SCH (09:46)
[2023-01-22] MEDS: PANTOPRAZOLE SODIUM 40 MG VIAL IVPUSH SCH ×2 (09:46→09:57)
[2023-01-22] MEDS: LIDOCAINE 5% TOPICAL PATCH TP SCH (09:46)
[2023-01-22 10:12] VITALS: TEMP 98.2
[2023-01-22 14:01] VITALS: BP 123/51
== END 2023-01-22 14:18 | disposition hospice, inpatient (51) | DRG 871 ==
LOC: JER 09:34 → JERBED 18:47 → J4W 21:12 → OBSVTOIN 01-04 11:45 → JICU 01-08 17:59 → J5S 01-17 15:15 → J7W 01-21 12:13
PROVIDERS: ADMIT Internal Medicine; ATTEND Family Medicine
PROC: 30233N1 Transfusion of Nonautologous Red Blood Cells into Peripheral Vein, Percutaneous Approach (ICD-10-PCS; principal; 2023-01-08)
PROC: 05HM33Z Insertion of Infusion Device into Right Internal Jugular Vein, Percutaneous Approach (ICD-10-PCS; 2023-01-08)
PROC: B543ZZA Ultrasonography of Right Jugular Veins, Guidance (ICD-10-PCS; 2023-01-08)
PROC: 30233R1 Transfusion of Nonautologous Platelets into Peripheral Vein, Percutaneous Approach (ICD-10-PCS; 2023-01-13)
DX: A41.9 Sepsis, unspecified organism (principal); G92.8 Other toxic encephalopathy; J96.01 Acute respiratory failure with hypoxia; K72.00 Acute and subacute hepatic failure without coma; R65.21 Severe sepsis with septic shock; N17.0 Acute kidney failure with tubular necrosis; E87.20 Acidosis, unspecified; I82.409 Acute embolism and thrombosis of unspecified deep veins of unspecified lower extremity; G30.9 Alzheimer's disease, unspecified; F02.80 Dementia in other diseases classified elsewhere, unspecified severity, without behavioral disturbance, psychotic disturbance, mood disturbance, and anxiety; E78.5 Hyperlipidemia, unspecified; I10 Essential (primary) hypertension; R55 Syncope and collapse; D64.9 Anemia, unspecified; K52.9 Noninfective gastroenteritis and colitis, unspecified; D69.6 Thrombocytopenia, unspecified; E87.6 Hypokalemia; R62.7 Adult failure to thrive; D72.829 Elevated white blood cell count, unspecified; E83.39 Other disorders of phosphorus metabolism; E03.9 Hypothyroidism, unspecified; L89.159 Pressure ulcer of sacral region, unspecified stage
CPT/HCPCS: 0241U-QW; 36415; 36430; 36511; 36600; 70450-TC; 71045-TC-FY; 72125-TC; 72170-TC-FY; 73502-TC-LT-FY; 73502-TC-RT-FY; 73562-TC-LT-FY; 73562-TC-RT-FY; 74018-TC-FY; 74176-TC; 74177-TC; 76705-TC; 80048; 80053; 80076; 81003; 82150; 82272; 82550; 82570; 82803; 82962; 82977; 83010; 83605; 83615; 83690; 83735; 84100; 84132; 84300; 84436; 84439; 84443; 84484; 85025; 85027; 85379; 85384; 85610; 85651; 85730; 86022; 86140; 86850; 86900; 86901; 86922; 87040; 87086; 87186; 87324; 87449; 93005; 93010; 93306-TC; 93970-TC; 95816; 99285-25; C9803-CS; G0378; J1644; J3490; P9034; P9038; P9047; P9058; Q9967; U0003; U0005